=== PATIENT | male | born 1950 | race Two or more races ===

== ENCOUNTER 2020-04-09 10:19 | Outpatient (REF) | payer MEDICARE, MEDICAID, SELFPAY ==
[2020-04-09 10:54] LABS: MANUAL DIFF FLAG NO
[2020-04-09 10:56] LABS: Basophils Percent Auto 0.3 % (0-2); Eosinophils Absolute Auto 0.2 X10*3/uL (0.0-0.4); Eosinophils Percent Auto 2.5 % (0-4); Hematocrit 35.3 % (42-52); Hemoglobin 11.8 g/dl (14.0-18.0); Imm Gran Abs Auto 0.04 X10*3/uL (0.00-0.03); Imm Gran Pct Auto 0.5 % (0.0-0.4); Lymphocytes Absolute Auto 1.3 X10*3/uL (1.2-4.9); Lymphocytes Percent Auto 16.7 % (20-40); Mean Corpuscular HGB Conc 33.4 g/dl (31.0-36.0); Mean Corpuscular Volume 95.7 fL (80-98); Mean Platelet Volume 9.7 fL (9.4-12.4); Monocytes Absolute Auto 0.3 X10*3/uL (0.1-1.2); Monocytes Percent Auto 4.3 % (2-11); Neutrophils Absolute Auto 5.7 X10*3/uL (2.0-8.3); Neutrophils Percent Auto 75.7 % (45-73); Platelet Count 180 X10*3/uL (160-400); Red Blood Count 3.69 X10*6/uL (4.60-5.80); Red Cell Distribution Width 12.5 % (11.0-16.0); White Blood Count 7.5 X10*3/uL (4.8-10.8)
[2020-04-09 11:40] LABS: Glucose Urine UA NEG (NEG); Leukocyte Esterase Urine NEG (NEG); Nitrite Urine NEG (NEG); Urine Blood NEG (NEG); Urine Ketones NEG (NEG); Urine Protein NEG (NEG-TRACE)
[2020-04-09 11:55] LABS: Appearance Urine CLEAR; Color Urine YELLOW
[2020-04-09 12:05] LABS: Anion Gap 12 (12-20); Blood Urea Nitrogen 13 mg/dL (9-16); Calcium 8.7 mg/dL (8.4-10.2); Carbon Dioxide 24 mmol/L (22-29); Chloride 107 mmol/L (96-108); Estimated Glomerular Filt Rate 46; Phosphorus 3.1 mg/dL (2.7-4.5); Potassium 4.4 mmol/l (3.3-5.1); Sodium 139 mmol/L (135-145)
[2020-04-09 12:13] LABS: Vitamin D 25-OH Total 11.8 ng/mL (>30)
[2020-04-09 12:21] LABS: Total Protein Urine Random < 7 mg/dL (<12)
[2020-04-09 12:37] LABS: Creatinine Urine 129.91 mg/dL; Microalbumin Urine < 5.0 mg/L; Total Protein Urine Random < 7 mg/dL (<12)
[2020-04-09 13:12] LABS: Renal w Reflex Lab Use Only Order verified
[2020-04-10 15:52] LABS: Calcium (PTHI) 8.9 mg/dL (8.6-10.3); PTHI 45 pg/mL (14-64)
== END 2020-04-09 10:20 | disposition home or self-care (01) ==
LOC: HO.LAB 10:19
PROVIDERS: PCP Internal Medicine; Visit Provider Internal Medicine Nephrology
DX: I12.9 Hypertensive chronic kidney disease with stage 1 through stage 4 chronic kidney disease, or unspecified chronic kidney disease (principal); E11.22 Type 2 diabetes mellitus with diabetic chronic kidney disease; E11.51 Type 2 diabetes mellitus with diabetic peripheral angiopathy without gangrene; N18.30 Chronic kidney disease, stage 3 unspecified
CPT/HCPCS: 36415; 80051; 81003; 82040; 82043; 82306; 82310; 82565; 83735; 83970; 84100; 84156; 84520; 85025

== ENCOUNTER → 2020-06-04 10:41 | Outpatient (BNVA) | payer MEDICARE, MEDICAID, SELFPAY | PROVIDERS: PCP Internal Medicine; Visit Provider Internal Medicine Cardiovascular Disease | DX: I25.10 Atherosclerotic heart disease of native coronary artery without angina pectoris (principal); I10 Essential (primary) hypertension; Z79.899 Other long term (current) drug therapy | CPT/HCPCS: 93005; 99212 ==

== ENCOUNTER 2020-06-11 12:38 | Outpatient (REF) | payer MEDICARE, MEDICAID, SELFPAY ==
--- NOTE | ~2020-06-11 | US_ITS ---
EXAMINATION: NONINVASIVE ASSESSMENT OF THE ARTERIES OF BOTH LOWER EXTREMITIES WITH BILATERAL LOWER EXTREMITY DUPLEX CLINICAL INFORMATION: Peripheral vascular disease TECHNIQUE: Bilateral duplex Doppler techniques with wave form analysis and measurement of velocities in the common femoral, profunda femoral, superficial femoral, popliteal and tibial arteries. The study was performed only at rest. COMPARISON: None FINDINGS: a) AT REST: RIGHT LE. Right direct duplex Doppler findings: There is evidence of atherosclerotic disease with vessel wall calcification. * Common femoral artery: 175 cm/s, Diastolic flow reversal: Yes * Superficial femoral artery (proximal, mid, distal): 85, 169 and 48 cm/s, Diastolic flow reversal: No. Monophasic flow. * Popliteal artery: 41 cm/s, Diastolic flow reversal: Yes. Monophasic flow. * Posterior tibial artery: 38 cm/s, Diastolic flow reversal: No. Monophasic flow. LEFT LE. Left direct duplex Doppler findings: There is evidence of atherosclerotic disease with vessel wall calcification. * Common femoral artery: 150 cm/s, Diastolic flow reversal: No. Biphasic. * Superficial femoral artery (proximal, mid, distal): 96, 98 and 85 cm/s, Diastolic flow reversal: No. Biphasic. * Popliteal artery: 68 cm/s, Diastolic flow reversal: No. Biphasic. * Posterior tibial artery: 28 cm/s, Diastolic flow reversal: No. Monophasic. * US/US arterial duplex LE BI IMPRESSION: Right: Increased peak systolic velocity in the right common femoral and superficial femoral arteries and monophasic flow in the right superficial femoral, popliteal posterior tibial arteries suggestive of mild atherosclerotic disease. Left: Increased peak systolic velocity in the left common femoral artery and biphasic and monophasic flow throughout suggestive of mild atherosclerotic disease.
--- NOTE | ~2020-06-11 | US_ITS ---
EXAMINATION: US EXTRACRANIAL CAROTID DUPLEX, BILATERAL CLINICAL INFORMATION: Carotid stenosis. Post right endarterectomy. COMPARISON: Previous exam May 2019 and previous CTA of the neck September 2012 TECHNIQUE: Real-time ultrasound and Doppler techniques (integrating B-mode 2-D vascular images, Doppler spectral analysis and color-flow Doppler imaging) were utilized to interrogate the extracranial carotid arteries, the vertebral arteries and proximal subclavian arteries bilaterally. The degree of stenosis is determined by criteria similar to NASCET. FINDINGS: Right Side: 1. There is mild atherosclerotic plaque seen in the bifurcation/proximal ICA region. There are post endarterectomy changes. 2. The common carotid artery PSV proximally is 237 cm/s and distally 160 cm/s. 3. The proximal internal carotid artery velocities are 192 cm/s systolic and 47 cm/s diastolic. 4. The proximal external carotid artery PSV is 209 cm/s. 5. The vertebral artery shows bidirectional flow. This is similar to previous exam. 6. The subclavian artery waveforms are normal. Left Side: 1. There is significant atherosclerotic plaque seen in the bifurcation/proximal ICA region. 2. The common carotid artery PSV proximally is 91 cm/s and distally 90 cm/s. 3. The left internal carotid artery is occluded. This is unchanged. 4. The proximal external carotid artery PSV is 128 cm/s. 5. The vertebral artery shows antegrade flow. 6. There is increased peak systolic velocity in the left subclavian artery measuring 263 cm/s. US/US carotid duplex BI IMPRESSION: 1. RIGHT: Mild atherosclerotic plaque. Post endarterectomy changes. Mild 0-49% right ICA stenosis. Increased peak systolic velocity in the right ECA suggestive of mild right ECA stenosis. Bidirectional flow seen in the right vertebral artery. 2. LEFT: Significant calcified plaque. Chronic left ICA occlusion similar to previous exam. Increased peak systolic velocity in the left subclavian artery just above left subclavian stenosis. 3. There is no change in the category severity of disease when compared to the previous study dated May 2019.
== END 2020-06-11 12:39 | disposition home or self-care (01) ==
LOC: HO.US 12:38
PROVIDERS: Visit Provider Internal Medicine Cardiovascular Disease
DX: I65.23 Occlusion and stenosis of bilateral carotid arteries (principal); I73.9 Peripheral vascular disease, unspecified
CPT/HCPCS: 93880; 93925

== ENCOUNTER 2020-07-15 08:49 | Outpatient (REF) | payer MEDICARE, MEDICAID, SELFPAY ==
[2020-07-15 09:44] LABS: MANUAL DIFF FLAG NO
[2020-07-15 09:58] LABS: Basophils Percent Auto 0.3 % (0-2); Eosinophils Absolute Auto 0.3 X10*3/uL (0.0-0.4); Eosinophils Percent Auto 2.9 % (0-4); Hematocrit 38.1 % (42-52); Hemoglobin 12.7 g/dl (14.0-18.0); Imm Gran Abs Auto 0.04 X10*3/uL (0.00-0.03); Imm Gran Pct Auto 0.4 % (0.0-0.4); Lymphocytes Absolute Auto 1.7 X10*3/uL (1.2-4.9); Lymphocytes Percent Auto 18.4 % (20-40); Mean Corpuscular HGB Conc 33.3 g/dl (31.0-36.0); Mean Corpuscular Hemoglobin 32.1 pg (27.0-33.0); Mean Corpuscular Volume 96.2 fL (80-98); Mean Platelet Volume 9.6 fL (9.4-12.4); Monocytes Absolute Auto 0.6 X10*3/uL (0.1-1.2); Monocytes Percent Auto 6.4 % (2-11); Neutrophils Absolute Auto 6.6 X10*3/uL (2.0-8.3); Neutrophils Percent Auto 71.6 % (45-73); Platelet Count 217 X10*3/uL (160-400); Red Blood Count 3.96 X10*6/uL (4.60-5.80); Red Cell Distribution Width 12.9 % (11.0-16.0); White Blood Count 9.2 X10*3/uL (4.8-10.8)
[2020-07-15 10:15] LABS: Alanine Aminotransferase 40 U/L (0-40); Albumin Level 4.3 g/dL (3.5-5.0); Alkaline Phosphatase 84 U/L (39-117); Anion Gap 11 (12-20); Aspartate Amino Transferase 28 U/L (5-37); Bilirubin Total 0.4 mg/dL (0.0-1.0); Blood Urea Nitrogen 18 mg/dL (9-16); Carbon Dioxide 27 mmol/L (22-29); Chloride 104 mmol/L (96-108); Estimated Glomerular Filt Rate 41; Glucose Random 91 mg/dL (60-115); Potassium 4.9 mmol/L (3.3-5.1); Sodium 137 mmol/L (135-145); Total Protein 6.9 g/dL (6.5-8.0)
[2020-07-15 10:16] LABS: Cholesterol 115 mg/dL; HDL Cholesterol 38 mg/dL; LDL Cholesterol Calculated 44 mg/dl; Triglycerides 166 mg/dL
[2020-07-15 10:24] LABS: Prostate Specific Antigen 0.66 ng/mL (<0.05-4.0); Thyroid Stimulating Hormone 1.44 uIU/mL (0.32-4.0)
== END 2020-07-15 08:50 | disposition home or self-care (01) ==
LOC: HO.LAB 08:49
PROVIDERS: Internal Medicine Cardiovascular Disease; PCP Internal Medicine; Visit Provider Internal Medicine
DX: Z12.5 Encounter for screening for malignant neoplasm of prostate (principal); I12.9 Hypertensive chronic kidney disease with stage 1 through stage 4 chronic kidney disease, or unspecified chronic kidney disease; N18.30 Chronic kidney disease, stage 3 unspecified; E11.22 Type 2 diabetes mellitus with diabetic chronic kidney disease; E78.5 Hyperlipidemia, unspecified; F51.01 Primary insomnia; I25.10 Atherosclerotic heart disease of native coronary artery without angina pectoris; I65.21 Occlusion and stenosis of right carotid artery
CPT/HCPCS: 36415; 80053; 80061; 84153; 84443; 85025

== ENCOUNTER 2020-11-19 10:05 | Outpatient (REF) | payer MEDICARE, MEDICAID, SELFPAY ==
[2020-11-19 10:46] LABS: MANUAL DIFF FLAG NO
[2020-11-19 11:02] LABS: Basophils Percent Auto 0.4 % (0-2); Eosinophils Absolute Auto 0.2 X10*3/uL (0.0-0.4); Eosinophils Percent Auto 2.4 % (0-4); Hematocrit 36.4 % (42-52); Hemoglobin 12.2 g/dl (14.0-18.0); Imm Gran Abs Auto 0.06 X10*3/uL (0.00-0.03); Imm Gran Pct Auto 0.7 % (0.0-0.4); Lymphocytes Absolute Auto 1.7 X10*3/uL (1.2-4.9); Lymphocytes Percent Auto 20.7 % (20-40); Mean Corpuscular HGB Conc 33.5 g/dl (31.0-36.0); Mean Corpuscular Hemoglobin 31.8 pg (27.0-33.0); Mean Corpuscular Volume 94.8 fL (80-98); Mean Platelet Volume 9.5 fL (9.4-12.4); Monocytes Absolute Auto 0.6 X10*3/uL (0.1-1.2); Neutrophils Absolute Auto 5.6 X10*3/uL (2.0-8.3); Neutrophils Percent Auto 68.8 % (45-73); Platelet Count 225 X10*3/uL (160-400); Red Blood Count 3.84 X10*6/uL (4.60-5.80); Red Cell Distribution Width 12.8 % (11.0-16.0); White Blood Count 8.2 X10*3/uL (4.8-10.8)
[2020-11-19 11:24] LABS: Albumin Level 4.4 g/dL (3.5-5.0); Anion Gap 12 (12-20); Blood Urea Nitrogen 11 mg/dL (9-16); Calcium 9.3 mg/dL (8.4-10.2); Carbon Dioxide 24 mmol/L (22-29); Chloride 109 mmol/L (96-108); Estimated Glomerular Filt Rate 40; Magnesium 2.3 mg/dL (1.6-2.6); Phosphorus 3.1 mg/dL (2.7-4.5); Potassium 4.6 mmol/L (3.3-5.1); Sodium 140 mmol/L (135-145)
[2020-11-19 11:48] LABS: Vitamin D 25-OH Total 11.5 ng/mL (>30)
[2020-11-19 12:58] LABS: Appearance Urine CLEAR; Color Urine YELLOW; Glucose Urine UA NEG (NEG); Leukocyte Esterase Urine NEG (NEG); Nitrite Urine NEG (NEG); Specific Gravity - Urine 1.015 (1.005-1.025); Urine Blood NEG (NEG); Urine Ketones NEG (NEG); Urine Protein NEG (NEG-TRACE)
[2020-11-19 13:17] LABS: Creatinine Urine 122.28 mg/dL; Microalbumin Urine < 5.0 mg/L; Total Protein Urine Random < 7 mg/dL (<12)
[2020-11-19 13:18] LABS: Renal w Reflex Lab Use Only Order verified
[2020-11-24 06:31] LABS: Calcium (PTHI) 9.3 mg/dL (8.6-10.3); PTHI 58 pg/mL (14-64)
== END 2020-11-19 10:06 | disposition home or self-care (01) ==
LOC: HO.LAB 10:05
PROVIDERS: PCP Internal Medicine; Visit Provider Internal Medicine Nephrology
DX: I12.9 Hypertensive chronic kidney disease with stage 1 through stage 4 chronic kidney disease, or unspecified chronic kidney disease (principal); E11.22 Type 2 diabetes mellitus with diabetic chronic kidney disease; E11.29 Type 2 diabetes mellitus with other diabetic kidney complication; E11.51 Type 2 diabetes mellitus with diabetic peripheral angiopathy without gangrene; N18.30 Chronic kidney disease, stage 3 unspecified
CPT/HCPCS: 36415; 80051; 81003; 82040; 82043; 82306; 82310; 82565; 83735; 83970; 84100; 84155; 84156; 84520; 85025

== ENCOUNTER 2021-01-15 09:42 | Outpatient (REF) | payer MEDICARE, MEDICAID, SELFPAY ==
--- NOTE | ~2021-01-15 | US_ITS ---
EXAMINATION: US RETROPERITONEAL LIMITED (RENAL ONLY) CLINICAL INFORMATION: CKD. History of kidney stones. COMPARISON: Renal ultrasound 03/13/2019 and 07/05/2018. KUB 02/02/2018 and 01/19/2018. CT abdomen and pelvis 03/13/2016. TECHNIQUE: Real-time imaging of the kidneys. FINDINGS: RIGHT KIDNEY: 10.9 x 6.9 x 5.4 cm (SAG x AP x TRV). The kidney is normal in size, contour, and echogenicity. Renal cortical thickness is normal. No renal calculi or hydronephrosis. Simple cyst at the lateral upper pole measures up to 3.9 cm. Additional smaller simple cysts are present. No follow-up imaging recommended. LEFT KIDNEY: 9.9 x 4.4 x 4.1 cm (SAG x AP x TRV). The kidney is normal in size, contour, and echogenicity. Renal cortical thickness is normal. No focal parenchymal lesions or hydronephrosis. There is a midpole 0.3 cm calculus. There is a lower pole 0.3 cm calculus. US/US renal BI IMPRESSION: Nonobstructing left renal calculi. These are likely similar to prior.
== END 2021-01-15 09:43 | disposition home or self-care (01) ==
LOC: HO.US 09:42
PROVIDERS: PCP Internal Medicine; Visit Provider Internal Medicine Nephrology
DX: N18.32 Chronic kidney disease, stage 3b (principal)
CPT/HCPCS: 76775

== ENCOUNTER → 2021-06-02 08:32 | Outpatient (BNVA) | payer MEDICARE, MEDICAID, SELFPAY | PROVIDERS: PCP Internal Medicine; Referring Provider Internal Medicine; Visit Provider Internal Medicine Cardiovascular Disease | DX: I25.10 Atherosclerotic heart disease of native coronary artery without angina pectoris (principal); I73.9 Peripheral vascular disease, unspecified; I65.29 Occlusion and stenosis of unspecified carotid artery | CPT/HCPCS: 93005; 99212 ==

== ENCOUNTER 2021-06-03 09:17 | Outpatient (REF) | payer MEDICARE, MEDICAID, SELFPAY ==
[2021-06-03 09:55] LABS: MANUAL DIFF FLAG NO
[2021-06-03 10:41] LABS: Basophils Percent Auto 0.3 % (0-2); Eosinophils Absolute Auto 0.2 X10*3/uL (0.0-0.4); Eosinophils Percent Auto 2.2 % (0-4); Hematocrit 39.7 % (42.0-52.0); Hemoglobin 12.9 g/dl (14.0-18.0); Imm Gran Abs Auto 0.09 X10*3/uL (0.00-0.03); Imm Gran Pct Auto 0.9 % (0.0-0.4); Lymphocytes Absolute Auto 1.8 X10*3/uL (1.2-4.9); Lymphocytes Percent Auto 18.7 % (20-40); Mean Corpuscular HGB Conc 32.5 g/dl (31.0-36.0); Mean Corpuscular Hemoglobin 31.3 pg (27.0-33.0); Mean Corpuscular Volume 96.4 fL (80.0-98.0); Mean Platelet Volume 9.1 fL (9.4-12.4); Monocytes Absolute Auto 0.7 X10*3/uL (0.1-1.2); Monocytes Percent Auto 6.8 % (2-11); Neutrophils Absolute Auto 6.9 x10*3/uL (2.0-8.3); Neutrophils Percent Auto 71.1 % (45-73); Platelet Count 219 X10*3/uL (160-400); Red Blood Count 4.12 X10*6/uL (4.60-5.80); Red Cell Distribution Width 13.3 % (11.0-16.0); White Blood Count 9.7 X10*3/uL (4.8-10.8)
[2021-06-03 11:01] LABS: Appearance Urine CLEAR; Color Urine YELLOW; Glucose Urine UA NEG (NEG); Leukocyte Esterase Urine NEG (NEG); Nitrite Urine NEG (NEG); Specific Gravity - Urine 1.015 (1.005-1.025); Urine Blood NEG (NEG); Urine Ketones NEG (NEG); Urine Protein NEG (NEG-TRACE)
[2021-06-03 11:15] LABS: Albumin Level 4.2 g/dL (3.5-5.0); Anion Gap 13 (12-20); Blood Urea Nitrogen 9 mg/dL (9-16); Calcium 9.5 mg/dL (8.4-10.2); Carbon Dioxide 29 mmol/L (22-29); Chloride 104 mmol/L (96-108); Estimated Glomerular Filt Rate > 60; Magnesium 2.1 mg/dL (1.6-2.6); Phosphorus 3.3 mg/dL (2.7-4.5); Potassium 4.4 mmol/L (3.3-5.1); Sodium 142 mmol/L (135-145)
[2021-06-03 12:24] LABS: Creatinine Urine 75.72 mg/dL; Microalbum/Creatinine Ratio Ur 18.4 ug/mg cr; Total Protein Urine Random < 7 mg/dL (<12)
[2021-06-04 16:01] LABS: Calcium (PTHI) 9.4 mg/dL (8.6-10.3); PTHI 65 pg/mL (16-77)
== END 2021-06-03 09:18 | disposition home or self-care (01) ==
LOC: HO.LAB 09:17
PROVIDERS: PCP Internal Medicine; Visit Provider Internal Medicine Nephrology
DX: I12.9 Hypertensive chronic kidney disease with stage 1 through stage 4 chronic kidney disease, or unspecified chronic kidney disease (principal); N18.32 Chronic kidney disease, stage 3b; E11.22 Type 2 diabetes mellitus with diabetic chronic kidney disease; E11.21 Type 2 diabetes mellitus with diabetic nephropathy
CPT/HCPCS: 36415; 80051; 81003; 82040; 82043; 82306; 82310; 82565; 83735; 83970; 84100; 84156; 84520; 85025; 87086

== ENCOUNTER 2021-06-24 11:36 | Outpatient (REF) | payer MEDICARE, MEDICAID, SELFPAY ==
--- NOTE | ~2021-06-24 | US_ITS ---
EXAMINATION: US EXTRACRANIAL CAROTID DUPLEX, BILATERAL CLINICAL INFORMATION: Carotid artery stenosis. History of hyperlipidemia. History of prior right endarterectomy. COMPARISON: Carotid ultrasound on 06/08/2019 and 06/11/2020. TECHNIQUE: Real-time ultrasound and Doppler techniques (integrating B-mode 2-D vascular images, Doppler spectral analysis and color-flow Doppler imaging) were utilized to interrogate the extracranial carotid arteries, the vertebral arteries and proximal subclavian arteries bilaterally. The degree of stenosis is determined by criteria similar to NASCET. FINDINGS: Right Side: 1. There is moderate atherosclerotic plaque seen in the bifurcation/proximal ICA region. 2. The common carotid artery PSV proximally is 130 cm/s and distally 140 cm/s. 3. The proximal internal carotid artery velocities are 189 cm/s systolic and 31.4 cm/s diastolic. 4. The proximal external carotid artery PSV is 295 cm/s. 5. The vertebral artery shows bidirectional flow, similar to prior exams. 6. Flow is reversed within the proximal right subclavian artery. There is normal antegrade flow within the mid right subclavian artery with normal waveforms and velocities. Left Side: 1. There is heavy atherosclerotic plaque seen in the bifurcation/proximal ICA region. 2. The common carotid artery PSV proximally is 108 cm/s and distally 70.7 cm/s. 3. The proximal internal carotid artery is occluded, stable from prior exams. 4. The proximal external carotid artery PSV is 210 cm/s. 5. The vertebral artery shows antegrade flow. 6. The subclavian artery waveforms are normal. US/US carotid duplex BI IMPRESSION: 1. RIGHT: Moderate, hemodynamically significant stenosis of the proximal right internal carotid artery corresponding to a 50-79% stenosis by velocity criteria. The degree of ICA stenosis is stable from 06/11/2020. Flow within the right vertebral artery is bidirectional, similar to priors and there is reversed flow within the proximal right subclavian artery. Flow within the mid right subclavian artery is appropriately antegrade and waveforms and velocities are normal. 2. LEFT: There is chronic left ICA occlusion, similar to prior exams. Left subclavian artery velocity is decreased from the comparison examination. 3. Moderate bilateral external carotid artery stenosis.
--- NOTE | ~2021-06-24 | US_ITS ---
EXAMINATION: US LOWER EXTREMITY ARTERIAL DUPLEX, BILATERAL CLINICAL INFORMATION: Peripheral vascular disease. TECHNIQUE: Real-time ultrasound and Doppler techniques (integrating B-mode 2-D vascular images, Doppler spectral analysis and color-flow Doppler imaging) were utilized to interrogate the lower extremities. COMPARISON: Lower extremity arterial ultrasound on 04/05/2012. FINDINGS: RIGHT LEG: Common femoral artery: 134 cm/s, Triphasic Profunda femoris artery: 130 cm/s, Triphasic Superficial femoral artery (proximal): 70.3 cm/s, Monophasic Superficial femoral artery (mid): 79.2 cm/s, Monophasic Superficial femoral artery (distal): 39.8 cm/s, Monophasic Popliteal artery: 42.4 cm/s, Monophasic Posterior tibial artery: 38.9 cm/s, Monophasic Peroneal artery: 61.6 cm/s, Monophasic LEFT LEG: Common femoral artery: 130 cm/s, Triphasic Profunda femoris artery: 145 cm/s, Triphasic Superficial femoral artery (proximal): 134 cm/s, Biphasic Superficial femoral artery (mid): 125 cm/s, Biphasic Superficial femoral artery (distal): 97.4 cm/s, Triphasic Proximal popliteal artery: 82.1 cm/s, Triphasic Posterior tibial artery: No flow identified, likely occluded. Peroneal artery: No flow identified, likely occluded. ADDITIONAL: Note is made of a prominent left proximal thigh lymph node measuring up to 1.9 x 3.6 x 0.7 cm. US/US arterial duplex LE BI IMPRESSION: Right: Velocity is normal within the common femoral artery, and the common femoral artery waveform is multiphasic; however, waveforms from the proximal superficial femoral artery to the calf are monophasic suggesting a proximal stenosis. Flow is present within the posterior tibial and peroneal arteries. Left: There are normal velocities and multiphasic waveforms from the common femoral artery to the proximal popliteal artery. A monophasic waveform is present within the distal popliteal artery, and there is no flow identified within the posterior tibial or peroneal arteries.
== END 2021-06-24 11:37 | disposition home or self-care (01) ==
LOC: HO.US 11:36
PROVIDERS: Absent Provider Internal Medicine Cardiovascular Disease; PCP Internal Medicine; Visit Provider Surgery Vascular Surgery
DX: I65.23 Occlusion and stenosis of bilateral carotid arteries (principal); I73.9 Peripheral vascular disease, unspecified
CPT/HCPCS: 93880; 93925

== ENCOUNTER → 2021-07-01 08:29 | Outpatient (BNVA) | payer MEDICARE, MEDICAID, SELFPAY | PROVIDERS: PCP Internal Medicine; Visit Provider Surgery Vascular Surgery | DX: I73.9 Peripheral vascular disease, unspecified (principal); I77.9 Disorder of arteries and arterioles, unspecified | CPT/HCPCS: 99212 ==

== ENCOUNTER 2021-07-16 06:40 | Day surgery (SDC) | payer MEDICARE, MEDICAID, SELFPAY ==
[2021-07-16] VITALS (10 sets, daily range): BP systolic 98–130; BP diastolic 57–98; PULSE 58–86; RESP 16–18; TEMP 36.1–36.6; O2SAT 97–99; BMI 26.5
[2021-07-16 08:32] LABS: MANUAL DIFF FLAG NO
[2021-07-16 08:39] LABS: Basophils Percent Auto 0.3 % (0-2); Eosinophils Absolute Auto 0.3 X10*3/uL (0.0-0.4); Eosinophils Percent Auto 2.8 % (0-4); Hematocrit 37.5 % (42.0-52.0); Hemoglobin 12.5 g/dl (14.0-18.0); Imm Gran Abs Auto 0.05 X10*3/uL (0.00-0.03); Imm Gran Pct Auto 0.6 % (0.0-0.4); Lymphocytes Absolute Auto 1.6 X10*3/uL (1.2-4.9); Lymphocytes Percent Auto 17.5 % (20-40); Mean Corpuscular HGB Conc 33.3 g/dl (31.0-36.0); Mean Corpuscular Hemoglobin 31.9 pg (27.0-33.0); Mean Corpuscular Volume 95.7 fL (80.0-98.0); Mean Platelet Volume 9.4 fL (9.4-12.4); Monocytes Absolute Auto 0.6 X10*3/uL (0.1-1.2); Monocytes Percent Auto 6.2 % (2-11); Neutrophils Absolute Auto 6.5 x10*3/uL (2.0-8.3); Neutrophils Percent Auto 72.6 % (45-73); Platelet Count 175 X10*3/uL (160-400); Red Blood Count 3.92 X10*6/uL (4.60-5.80); Red Cell Distribution Width 13.1 % (11.0-16.0)
[2021-07-16] MEDS: 0.9 % Sodium Chloride 1,000 ML 100 ML IVCONT (08:45)
[2021-07-16 08:47] LABS: Blood Urea Nitrogen 12 mg/dL (9-16); Creatinine Clr Calc Pharmacy 48.1; Estimated Glomerular Filt Rate 49
[2021-07-16] MEDS: iohexoL 300 MG/ML 100 ML INFUS..BTL IV (11:10)
[2021-07-16] MEDS: iohexoL 300 MG/ML 50 ML INFUS..BTL IV (11:11)
--- NOTE | 2021-07-16 11:18 | W.PM.OPN ---
Operative Note Operative Note Date of Service: 07/16/21 Narrative: Angiogram report from [facility] Preoperative diagnosis: Atherosclerosis of left lower extremity with activity limiting claudication Postoperative diagnosis: Same Procedure: 1. Ultrasound-guided right common femoral access 2. Aortogram with bilateral lower extremity runoff Surgeon:Dom Cabello M.D., FACS, RPVI Holistic Specialist:None Anesthesia: Local with moderate conscious sedation. Total intraservice moderate sedation time was 63 minutes. I monitored the patient's level of consciousness and physiologic status continuously throughout the procedure. Specimens:none Drains:none Estimated blood loss: Less than 10 ml Implant: None Indications: 71-year-old gentleman with a history of diabetes and peripheral vascular disease presents for activity limiting claudication. He has undergone noninvasive testing. He now presents for endovascular intervention. The patient has signed the informed consent after reviewing risks, complications, benefits, and alternatives previously discussed with the patient. The patient was given the opportunity to ask any additional questions or voice any concerns. All questions were answered to the patient's satisfaction. Procedure in detail: Patient was brought to the angiography suite prior to which a time-out was called for patient identification and site verification. Bilateral groins were prepped and draped in the standard surgical fashion. Under ultrasound guidance rightcommon femoral was punctured with micro puncture needle and wire. Subsequently a precision 4 Belgian sheath was then placed. Bentson wire was advanced to the level of the aorta. 4 Belgian Flush catheter was brought up and parked at the level of the renal arteries. Aortogram was then undertaken. Catheter was brought down to the level of the iliac bifurcation. Iliacs were subsequently imaged. Catheter was then brought in up and over to the left side SFA. Due to the tortuosity we had to exchange to a Glidewire and subsequently glide catheter. This took multiple attempts to finally engaged the SFA but we were able to do so. Runoff study was then undertaken. No intervention was indicated. We removed catheter and wire. Through the 5 Belgian sheath right lower extremity runoff study was then undertaken. Once again no intervention was indicated. Sheath was removed. 10 minutes of direct pressure was held. Patient tolerated the procedure well. Returned to recovery with stable vitals. Interpretation of films: 1. Ultrasound demonstrates appropriate femoral puncture. Image of which was saved. 2. Aortogram demonstrates appropriate caliber aorta. Minimal disease. Appropriate take-off of the renals. 3. Iliac images demonstrate no significant disease. Left iliac had significant tortuosity near 90 degree turn of the common iliac. 4. Left Leg Common femoral artery: No significant disease Profundus Femoris: No significant disease Superficial femoral artery: Patent with prior stent which appears to be a 6 x 20 at [facility] canal which was patent Popliteal artery (p1,p2,p3): No significant disease Anterior tibial artery: Patent and dominant runoff. Goes all the way to the ankle and supplies multiple no named collaterals at the foot Peroneal artery: Occluded Posterior tibial artery: Occluded Dorsalis pedis/plantar arch: Incomplete 5. RightLeg Common femoral artery: No significant disease Profundus Femoris: No significant disease Superficial femoral artery: Multiple stenosis throughout the SFA in particular at Sami's canal high-grade stenosis Popliteal artery (p1,p2,p3): No significant disease Anterior tibial artery: Occluded Peroneal artery: Occluded Posterior tibial artery: Posterior tibial is dominant runoff although TP trunk had some mild stenosis Dorsalis pedis/plantar arch: Incomplete Conclusion: 1. Successful diagnostic angiogram. Patient will return for possible right lower extremity intervention. 2. Anticoagulation status: No change This note is constructed using voice recognition software. While every effort has been made to ensure accuracy, hi lift operator errors may have been included. Thank you for allowing me to participate in the care of your patient. Yours sincerely, Dom Cabello MD, FACS, R.P.V.I.
== END 2021-07-16 14:29 | disposition home or self-care (01) ==
PROVIDERS: PCP Internal Medicine; Visit Provider Surgery Vascular Surgery
DX: E11.51 Type 2 diabetes mellitus with diabetic peripheral angiopathy without gangrene (principal); I70.212 Atherosclerosis of native arteries of extremities with intermittent claudication, left leg; I25.10 Atherosclerotic heart disease of native coronary artery without angina pectoris; M79.605 Pain in left leg; Z98.61 Coronary angioplasty status; I10 Essential (primary) hypertension; I77.9 Disorder of arteries and arterioles, unspecified; Z79.899 Other long term (current) drug therapy; Z88.8 Allergy status to other drugs, medicaments and biological substances; Z98.890 Other specified postprocedural states
CPT/HCPCS: 36247; 36415; 75630; 76937; 82565; 84520; 85025; 99152; 99153; C1769; C1887; J2250; J3010; Q9967

== ENCOUNTER → 2021-08-04 08:34 | Outpatient (REF) | payer MEDICARE, MEDICAID, SELFPAY ==
--- NOTE | ~2021-08-04 | NM_ITS ---
Myocardial perfusion study Indication: Angina with prior coronary artery disease to evaluate for myocardial ischemia Technique: The patient was brought in for a Lexiscan perfusion study on 08/04/2021. Patient performed low-level exercise and was injected 0.4 mg of Lexiscan intravenously. Within a minute of injection, 30 mCi of sestamibi was given intravenously. Images were obtained using the SPECT gamma camera interlaced with the gating device. Images were obtained in supine position. Resting perfusion study was performed on 08/05/2021. Patient was administered 30 mCi of sestamibi intravenously at rest. Images were then obtained in supine position. Images obtained with and without CT attenuation. Total DLP 84 mGy-cm. Images were processed with the software and compared side to side in short axis, horizontal long axis and vertical long axis views. Findings: The stress perfusion study showed non attenuated images show moderately large area all severely reduced uptake mostly in the basal inferior, mid inferior as well as apical inferolateral and moderately reduced and basal inferolateral as well as inferoapical wall of the LV myocardium. Attenuation corrected images show moderately reduced uptake in the inferolateral as well as mildly to moderately reduced uptake in the inferior wall of the LV myocardium. Remainder of the LV myocardium is normally perfused.. The gated study shows normal LV systolic function with calculated LVEF of 67%. LV cavity is normal in size. The gated study shows normal systolic wall thickening and contraction of segments. Resting study shows non attenuated images show no change in perfusion pattern. Attenuation corrected images show improved uptake in the inferior and inferolateral wall.. Gating at rest reveals normal systolic wall motion with ejection fraction at 66%. The findings are consistent with attenuated corrected suggestive wall reversible defect of the inferior and inferolateral wall of moderate intensity suggestive of ischemia.. NM/NM cardiolite stress test Impression: 1. Myocardial perfusion imaging study shows moderate intensity inferior and inferolateral ischemia in RCA/circumflex territory 2. Gated LVEF is 67% 3. Transient ischemic dilatation not present EKG is nondiagnostic for ischemia
--- NOTE | 2021-08-04 08:40 | CA_ITS ---
Acquisition Time: 2021-08-04 09:35:25 Total Exercise Time: 00:02:00 Test Indications: ANGINA Medications: SEE CHART Protocol: LEXISCAN Max HR: 110 BPM 74% of Pred: 147 BPM Max BP: 110/060 mmHG Max Work Load: 1.0 METS Pharmacological stress test with Lexiscan injection, while sitting and moving his legs and right arm, without anginal symptoms, with isolated PVC, with normotensive response to injection, with nondiagnostic EKG for ischemia. In recovery he was treated with Aminophylline 75mg IVP to reverse Lexiscan. Nuclear images pending. Test reviewed with Dr Nur. Referred By: Robby Weber Overread By: GEOFF REYES
== END ==
LOC: HO.CARD 08:34
PROVIDERS: Visit Provider Internal Medicine Cardiovascular Disease
DX: I25.119 Atherosclerotic heart disease of native coronary artery with unspecified angina pectoris (principal)
CPT/HCPCS: 78452; 93017; A9500; J0280; J2785

== ENCOUNTER → 2021-08-07 09:28 | Outpatient (BNVA) | payer MEDICARE, MEDICAID, SELFPAY | PROVIDERS: PCP Internal Medicine; Visit Provider Surgery Vascular Surgery | DX: I73.9 Peripheral vascular disease, unspecified (principal); I77.9 Disorder of arteries and arterioles, unspecified | CPT/HCPCS: 99212 ==

== ENCOUNTER 2021-09-02 10:19 | Outpatient (REF) | payer MEDICARE, MEDICAID, SELFPAY ==
--- NOTE | ~2021-09-02 | XR_ITS ---
EXAMINATION: XR CERVICAL SPINE CLINICAL INFORMATION: Cervicalgia COMPARISON: Carotid ultrasound 06/11/2020. TECHNIQUE: The cervical spine is imaged in 9 views. FINDINGS: There is mild rightward tilting cervical spine and mild straightening of the cervical lordosis. Bony mineralization appears normal. There is no cervical vertebral compression, spondylolisthesis, destructive process, or prevertebral soft tissue swelling. The odontoid appears intact. There are multilevel degenerative disc changes with disc narrowing and vertebral spurring from C3-C4 through C6-C7. There is mild facet degeneration. The oblique views show mild bilateral foraminal spurring C4, C5, and C6. XR/XR cervical spine min 6V IMPRESSION: -Mild rightward tilting cervical spine with mild straightening lordosis. -No cervical vertebral compression or subluxation. -Degenerative disc changes C3-C4, C4-C5, C5-C6, and C6-C7. -Mild bilateral foraminal spurring C4-C5, C5-C6, C6-C7.
== END 2021-09-02 10:20 | disposition home or self-care (01) ==
LOC: HO.XRAY 10:19
PROVIDERS: PCP Internal Medicine; Visit Provider Internal Medicine
DX: M54.2 Cervicalgia (principal)
CPT/HCPCS: 72052

== ENCOUNTER → 2021-12-08 09:46 | Outpatient (BNVA) | payer MEDICARE, MEDICAID, SELFPAY | PROVIDERS: PCP Internal Medicine; Referring Provider Internal Medicine; Visit Provider Internal Medicine Cardiovascular Disease | DX: I25.10 Atherosclerotic heart disease of native coronary artery without angina pectoris (principal); I10 Essential (primary) hypertension | CPT/HCPCS: 99212 ==

== ENCOUNTER → 2022-02-02 10:44 | Outpatient (REF) | payer MEDICARE, MEDICAID, SELFPAY | LOC: HO.SL 10:44 | PROVIDERS: PCP Internal Medicine; Visit Provider Internal Medicine | DX: G47.33 Obstructive sleep apnea (adult) (pediatric) (principal); F51.01 Primary insomnia | CPT/HCPCS: 95806 ==

== ENCOUNTER 2022-04-07 08:28 | Outpatient (REF) | payer MEDICARE, MEDICAID, SELFPAY ==
[2022-04-07 08:47] LABS: MANUAL DIFF FLAG NO
[2022-04-07 09:22] LABS: Basophils Percent Auto 0.3 % (0-2); Eosinophils Absolute Auto 0.2 X10*3/uL (0.0-0.4); Eosinophils Percent Auto 1.9 % (0-4); Hematocrit 36.7 % (42.0-52.0); Hemoglobin 12.3 g/dl (14.0-18.0); Imm Gran Abs Auto 0.05 X10*3/uL (0.00-0.03); Imm Gran Pct Auto 0.6 % (0.0-0.4); Lymphocytes Absolute Auto 1.6 X10*3/uL (1.2-4.9); Lymphocytes Percent Auto 17.4 % (20-40); Mean Corpuscular HGB Conc 33.5 g/dl (31.0-36.0); Mean Corpuscular Hemoglobin 31.1 pg (27.0-33.0); Mean Corpuscular Volume 92.9 fL (80.0-98.0); Mean Platelet Volume 9.8 fL (9.4-12.4); Monocytes Absolute Auto 0.5 X10*3/uL (0.1-1.2); Monocytes Percent Auto 5.5 % (2-11); Neutrophils Absolute Auto 6.7 x10*3/uL (2.0-8.3); Neutrophils Percent Auto 74.3 % (45-73); Platelet Count 202 X10*3/uL (160-400); Red Blood Count 3.95 X10*6/uL (4.60-5.80); Red Cell Distribution Width 12.8 % (11.0-16.0)
[2022-04-07 09:36] LABS: Appearance Urine Clear; Color Urine Yellow; Glucose Urine UA Negative (Negative); Leukocyte Esterase Urine Negative (Negative); Nitrite Urine Negative (Negative); PH 5.5 (5.0-9.0); Urine Blood Negative (Negative); Urine Ketones Negative (Negative); Urine Protein Negative (Neg-Trace)
[2022-04-07 09:41] LABS: Bacteria Urine None Seen (None Seen); RBC Urine 0-2 /HPF (0-2); Squamous Epithelial Cell Urine 0-2 /HPF (0-2); WBC Urine 0-5 /HPF (0-5)
[2022-04-07 10:09] LABS: Creatinine Urine 157.49 mg/dL; Microalbum/Creatinine Ratio Ur 15.2 ug/mg cr; Protein/Creatinine Ratio, Ur 0.06 (<0.2); Total Protein Urine Random 9 mg/dL (<12)
[2022-04-07 10:16] LABS: Albumin Level 4.2 g/dL (3.5-5.0); Anion Gap 12 (12-20); Blood Urea Nitrogen 12 mg/dL (9-16); Calcium 9.3 mg/dL (8.4-10.2); Carbon Dioxide 25 mmol/L (22-29); Chloride 107 mmol/L (96-108); Estimated Glomerular Filt Rate 39; Magnesium 1.9 mg/dL (1.6-2.6); Phosphorus 3.8 mg/dL (2.7-4.5); Potassium 4.5 mmol/L (3.3-5.1); Sodium 139 mmol/L (135-145)
[2022-04-08 11:37] LABS: Calcium (PTHI) 9.1 mg/dL (8.6-10.3); PTHI 69 pg/mL (16-77)
== END 2022-04-07 08:29 | disposition home or self-care (01) ==
LOC: HO.LAB 08:28
PROVIDERS: PCP Internal Medicine; Visit Provider Internal Medicine Nephrology
DX: I12.9 Hypertensive chronic kidney disease with stage 1 through stage 4 chronic kidney disease, or unspecified chronic kidney disease (principal); E11.22 Type 2 diabetes mellitus with diabetic chronic kidney disease; N18.31 Chronic kidney disease, stage 3a
CPT/HCPCS: 36415; 80051; 81001; 82040; 82043; 82310; 82565; 83735; 83970; 84100; 84156; 84520; 85025; 87086

== ENCOUNTER → 2022-06-08 10:04 | Outpatient (BNVA) | payer MEDICARE, MEDICAID, SELFPAY | PROVIDERS: PCP Internal Medicine; Referring Provider Internal Medicine; Visit Provider Internal Medicine Cardiovascular Disease | DX: I25.10 Atherosclerotic heart disease of native coronary artery without angina pectoris (principal) | CPT/HCPCS: 93005; 99212 ==

== ENCOUNTER 2022-06-16 06:59 | Outpatient (REF) | payer MEDICARE, MEDICAID, SELFPAY ==
[2022-06-16 08:10] LABS: Cholesterol 130 mg/dL; HDL Cholesterol 51 mg/dL; LDL Cholesterol Calculated 61 mg/dl; Triglycerides 94 mg/dL
== END 2022-06-16 07:00 | disposition home or self-care (01) ==
LOC: HO.LAB 06:59
PROVIDERS: PCP Internal Medicine; Visit Provider Internal Medicine Cardiovascular Disease
DX: I25.10 Atherosclerotic heart disease of native coronary artery without angina pectoris (principal)
CPT/HCPCS: 36415; 80061

== ENCOUNTER 2022-10-02 09:43 | Outpatient (REF) | payer MEDICARE, MEDICAID, SELFPAY ==
[2022-10-02 11:08] LABS: Anion Gap 12 (12-20); Blood Urea Nitrogen 12 mg/dL (9-16); Calcium 9.4 mg/dL (8.4-10.2); Carbon Dioxide 27 mmol/L (22-29); Chloride 106 mmol/L (96-108); Estimated Glomerular Filt Rate 41; Glucose Random 131 mg/dL (60-115); Potassium 3.9 mmol/L (3.3-5.1); Sodium 141 mmol/L (135-145)
[2022-10-08 15:13] LABS: Testosterone, Free 63.6 pg/mL (30.0-135.0); Testosterone, Total 544 ng/dL (250-1100)
== END 2022-10-02 09:44 | disposition home or self-care (01) ==
LOC: HO.LAB 09:43
PROVIDERS: PCP Internal Medicine; Visit Provider Internal Medicine
DX: N52.9 Male erectile dysfunction, unspecified (principal); I10 Essential (primary) hypertension
CPT/HCPCS: 36415; 80048; 84402; 84403

== ENCOUNTER 2022-11-19 08:56 | Outpatient (REF) | payer MEDICARE, MEDICAID, SELFPAY ==
[2022-11-19 09:15] LABS: MANUAL DIFF FLAG NO
[2022-11-19 09:49] LABS: Basophils Percent Auto 0.3 % (0-2); Eosinophils Absolute Auto 0.2 X10*3/uL (0.0-0.4); Eosinophils Percent Auto 2.4 % (0-4); Hematocrit 36.7 % (42.0-52.0); Hemoglobin 12.2 g/dl (14.0-18.0); Imm Gran Abs Auto 0.04 X10*3/uL (0.00-0.03); Imm Gran Pct Auto 0.6 % (0.0-0.4); Lymphocytes Absolute Auto 1.3 X10*3/uL (1.2-4.9); Lymphocytes Percent Auto 18.5 % (20-40); Mean Corpuscular HGB Conc 33.2 g/dl (31.0-36.0); Mean Corpuscular Hemoglobin 30.9 pg (27.0-33.0); Mean Corpuscular Volume 92.9 fL (80.0-98.0); Mean Platelet Volume 9.8 fL (9.4-12.4); Monocytes Absolute Auto 0.4 X10*3/uL (0.1-1.2); Monocytes Percent Auto 5.8 % (2-11); Neutrophils Absolute Auto 5.2 x10*3/uL (2.0-8.3); Neutrophils Percent Auto 72.4 % (45-73); Platelet Count 209 X10*3/uL (160-400); Red Blood Count 3.95 X10*6/uL (4.60-5.80); Red Cell Distribution Width 13.5 % (11.0-16.0); White Blood Count 7.1 X10*3/uL (4.8-10.8)
[2022-11-19 10:42] LABS: Albumin Level 4.1 g/dL (3.5-5.0); Anion Gap 13 (12-20); Blood Urea Nitrogen 9 mg/dL (9-16); Calcium 9.4 mg/dL (8.4-10.2); Carbon Dioxide 25 mmol/L (22-29); Chloride 108 mmol/L (96-108); Estimated Glomerular Filt Rate 50; Phosphorus 3.5 mg/dL (2.7-4.5); Sodium 142 mmol/L (135-145)
[2022-11-19 10:57] LABS: Vitamin D 25-OH Total 15.3 ng/mL (>30)
[2022-11-19 11:19] LABS: Appearance Urine Clear; Color Urine Yellow; Glucose Urine UA Negative (Negative); Leukocyte Esterase Urine Negative (Negative); Nitrite Urine Negative (Negative); PH 5.5 (5.0-9.0); Specific Gravity - Urine 1.015 (1.005-1.025); Urine Blood Negative (Negative); Urine Ketones Negative (Negative); Urine Protein Negative (Neg-Trace)
[2022-11-19 12:14] LABS: Creatinine Urine 166.23 mg/dL; Microalbum/Creatinine Ratio Ur 4.8 ug/mg cr (<30); Protein/Creatinine Ratio, Ur 0.05 (<0.2); Total Protein Urine Random 9 mg/dL (<12)
[2022-11-20 15:54] LABS: Calcium (PTHI) 8.9 mg/dL (8.6-10.3); PTHI 50 pg/mL (16-77)
== END 2022-11-19 08:57 | disposition home or self-care (01) ==
LOC: HO.LAB 08:56
PROVIDERS: PCP Internal Medicine; Visit Provider Internal Medicine Nephrology
DX: E11.22 Type 2 diabetes mellitus with diabetic chronic kidney disease (principal); N18.32 Chronic kidney disease, stage 3b; E11.21 Type 2 diabetes mellitus with diabetic nephropathy
CPT/HCPCS: 36415; 80051; 81003; 82040; 82043; 82306; 82310; 82565; 82570; 83735; 83970; 84100; 84156; 84520; 85025

== ENCOUNTER 2023-01-19 08:05 | Outpatient (REF) | payer MEDICARE, MEDICAID, SELFPAY ==
[2023-01-19 09:33] LABS: Alanine Aminotransferase 16 U/L (0-40); Albumin Level 3.9 g/dL (3.5-5.0); Alkaline Phosphatase 78 U/L (39-117); Aspartate Amino Transferase 17 U/L (5-37); Bilirubin Direct 0.2 mg/dL (0.0-0.5); Bilirubin Total 0.4 mg/dL (0.0-1.0); Total Protein 6.8 g/dL (6.5-8.0)
[2023-01-19 09:35] LABS: Prothrombin Time 11.7 SEC (11.1-13.3)
== END 2023-01-19 08:06 | disposition home or self-care (01) ==
LOC: HO.LAB 08:05
PROVIDERS: PCP Internal Medicine; Visit Provider Internal Medicine
DX: I12.9 Hypertensive chronic kidney disease with stage 1 through stage 4 chronic kidney disease, or unspecified chronic kidney disease (principal); E11.22 Type 2 diabetes mellitus with diabetic chronic kidney disease; N18.31 Chronic kidney disease, stage 3a; N52.9 Male erectile dysfunction, unspecified; I73.9 Peripheral vascular disease, unspecified; Z79.4 Long term (current) use of insulin
CPT/HCPCS: 36415; 80076; 85610

== ENCOUNTER → 2023-02-10 08:38 | Outpatient (REF) | payer MEDICARE, MEDICAID, SELFPAY ==
--- NOTE | 2023-02-10 08:41 | CA_ITS ---
Transthoracic Echocardiogram Patient (Last, First, Middle): Leroy Contreras, Gender: Male Date of : 1950 Age: 72 Procedure Date: 02/10/2023 Procedure Type: Transthoracic Echocardiogram Location: OP Height: 175.26 cm Weight: 92.08 kg BSA: 2.08 m2 Heart Rate: bpm BP: 140 / 62 mmHg Harpoon Engagement Planning Operator: TO Referring MD: Nikunj Ferris MD Petroleum Sampler: Robby Weber MD Symptoms: ASCD W/O ANGINA I25.10 HTN I10 Study Quality: Adequate ECG Rhythm: Sinus Conclusions: - 1. Normal LV systolic function with LVEF of 60 65% with sudden normal filling pattern 2. Mildly dilated left atrium 3. Normal cardiac valvular Dopplers 4. Mildly dilated ascending aorta 3.9 cm 5. No gross pericardial effusion Findings Left Ventricle Normal left ventricular size, thickness, and systolic function. The visually estimated ejection fraction is between 60-65%. Spectral Doppler is indicative of a pseudonormal filling pattern. E/E prime ratio is between 8 and 15 consistent with indeterminate filling pressures. Peak GLS is -17.#%, borderline low. Right Ventricle Normal right ventricular cavity size and systolic function. Atria The left atrium is mildly dilated. Interatrial shunt cannot be excluded. The right atrium is normal in size. Aortic Valve There is mild calcification of the aortic valve. There is no aortic valve stenosis. There is no aortic valve regurgitation. Mitral Valve There is mild anterior and posterior mitral leaflet thickening. There is trace mitral valve regurgitation. There is no mitral valve stenosis. Pulmonic Valve The pulmonic valve was not well visualized. Tricuspid Valve Likely normal tricuspid valve structure and function. Normal right atrial pressure. Great Vessels The pulmonary artery was not well visualized. There is mild dilatation of the ascending aorta measuring 3.90 cm. Venous The inferior vena cava is normal in size and collapses greater than 50% with inspiration. Pericardium/Pleural There is no evidence of pericardial effusion. Measurements 2D Linear Measurements IVSd: 1.24 0.6-0.9/0.6-1.0 cm LVIDd: 5.23 3.9-5.3/4.2-5.9 cm LVIDd Index: 2.51 2.4-3.2/2.2-3.1 cm/m2 LVIDs: 3.15 2.0-3.6 cm LVPWd: 1.03 0.7-1.1 cm LA Diam: 4.10 2.7-3.8/3.0-4.0 cm LAIDs Index: 1.97 1.5-2.3 cm/m2 LV Mass: 289.97 67-162/88-224 g LV Mass Index: 139.41 43-95/49-115 g/m2 LVOT Diam: 2.20 3.0+(-)1.3 cm 2D Systolic Function EF 4C: 60.60 >55% EF 2C: 62.80 >55% EF BiP: 62.00 >55% Mitral Valve MV VTI: 0.41 MV Pk Raul: 1.18 MV Mn Raul: 0.66 MV Pk Grad: 6.00 MV Mn Grad: 2.00 MV Pk E: 1.11 MV PK A: 0.94 MV Decel Time: 215.00 E/A: 1.20 E'Lateral: 7.29 E'Medial: 5.44 E/E' Med: 20.40 E/E' Lat: 15.20 PHT: 63.00 MVA PHT: 3.49 MVA Continuity: 2.47 Decel Fisher: 5.19 Aortic Valve AoV Pk Raul: 1.62 AoV Mn Raul: 1.21 AoV VTI: 0.45 AoV Pk Grad: 10.00 Aov Mn Grad: 6.00 MARIYA Cont.VTI: 2.24 LVOT LVOT Pk Raul: 0.95 LVOT Mn Raul: 0.71 LVOT VTI: 0.27 LVOT Pk Grad: 4.00 LVOT Mn Grad: 2.00 LVOT Diam: 2.20 LVOT Area: 3.80 Diastolic Function MV Pk E: 1.11 MV Pk A: 0.94 E/A: 1.20 E'Medial: 5.44 E/E' Med: 20.40 E' Laterial: 7.29 E/E' Lat: 15.20 Right Ventricle TAPSE (mm): 29.50 TVS' Raul: 15.40 Tricuspid Valve RA Press: 3.00 Great Vessels Aorta Sinus of Valsalva: 3.80 2.0-3.5 cm Ao Asc: 3.90 2.1-3.4 cm Updated in Other Vendor System with Status of Final Robby Weber MD electronically signed on 02/10/2023 5:08:38 PM with status of Final
== END ==
LOC: HO.CARD 08:38
PROVIDERS: PCP Internal Medicine; Visit Provider Internal Medicine
DX: I25.10 Atherosclerotic heart disease of native coronary artery without angina pectoris (principal); I10 Essential (primary) hypertension
CPT/HCPCS: 93306; 93356

== ENCOUNTER → 2023-02-10 08:41 | Outpatient (BNV) | payer MEDICARE, MEDICAID, SELFPAY | PROVIDERS: PCP Internal Medicine; Visit Provider Internal Medicine Cardiovascular Disease | DX: I35.8 Other nonrheumatic aortic valve disorders (principal); I34.89 Other nonrheumatic mitral valve disorders | CPT/HCPCS: 93306 ==

== ENCOUNTER 2023-02-16 08:47 | Outpatient (REF) | payer MEDICARE, MEDICAID, SELFPAY ==
--- NOTE | ~2023-02-16 | US_ITS ---
EXAMINATION: US NONINVASIVE ASSESSMENT OF THE ARTERIES OF BOTH LOWER EXTREMITIES INCLUDING PVR EXAM AND BILATERAL LOWER EXTREMITY DUPLEX. CLINICAL INFORMATION: Claudication COMPARISON: None TECHNIQUE: Ankle pulse volume recordings, ankle pressure measurements and ankle brachial indices were obtained of the lower extremity arterial system bilaterally in addition to duplex Doppler techniques with wave form analysis and measurement of velocities in the common femoral, profunda femoral, superficial femoral, popliteal, tibial and peroneal arteries. The study was performed only at rest. FINDINGS: RIGHT LE. THE RIGHT ANKLE-BRACHIAL INDEX IS: 0.7 >0.97-1.25 = normal - no significant arterial disease 0.75-0.96 = mild peripheral arterial disease 0.5-0.74 = moderate peripheral arterial disease <0.50 = severe peripheral arterial disease <0.30 = critical arterial disease 2. SEGMENTAL PRESSURES (mmHg): Ankle: PT 101, DP 86 3. PVR WAVEFORMS: Ankle: Dampened compared to the contralateral side 4. DIRECT DUPLEX: Common femoral artery: 129 cm/s, Multiphasic Profunda femoris artery: 161 cm/s, monophasic Superficial femoral artery (proximal): 62 cm/s, monophasic Superficial femoral artery (mid): Occluded Superficial femoral artery (distal): 170 cm/s, monophasic Proximal Popliteal artery: 19 cm/s, monophasic Mid posterior tibial artery: 40 cm/s, monophasic Peroneal artery: 42 cm/s, monophasic LEFT LE. THE LEFT ANKLE-BRACHIAL INDEX IS: 0.76 >0.97-1.25 = normal - no significant arterial disease 0.75-0.96 = mild peripheral arterial disease 0.5-0.74 = moderate peripheral arterial disease <0.50 = severe peripheral arterial disease <0.30 = critical arterial disease 2. SEGMENTAL PRESSURES: Ankle: PT 103, DP 109 3. PVR WAVEFORMS: Ankle: Normal 4. DIRECT DUPLEX: Common femoral artery: 48 cm/s, Multiphasic Profunda femoris artery: 114 cm/s, biphasic Superficial femoral artery (proximal): 83 cm/s, Multiphasic Superficial femoral artery (mid): 1:15 cm/s, Multiphasic Superficial femoral artery (distal): 64 cm/s, Multiphasic Proximal Popliteal artery: 46 cm/s, Multiphasic Mid posterior tibial artery: 21 cm/s, monophasic Peroneal artery: Occluded. US/US arterial duplex LE BI IMPRESSION: Right lower extremity: 1. Moderate resting peripheral vascular disease. 2. Long segment occlusion of the SFA with distal reconstitution from intramuscular collateral. 3. Occlusion of anterior tibial artery at the mid segment and posterior tibial artery proximally. Left lower extremity: 1. Moderate resting peripheral vascular disease. 2. Distal SFA stent patent. 3. Occluded posterior tibial and peroneal arteries. 4. Anterior tibial and dorsalis pedis patent.
== END 2023-02-16 08:48 | disposition home or self-care (01) ==
LOC: HO.US 08:47
PROVIDERS: PCP Internal Medicine; Visit Provider Surgery Vascular Surgery
DX: I70.213 Atherosclerosis of native arteries of extremities with intermittent claudication, bilateral legs (principal)
CPT/HCPCS: 93923; 93925

== ENCOUNTER 2023-03-25 12:49 | Outpatient (AMB) | payer MEDICARE, MEDICAID, SELFPAY ==
--- NOTE | 2023-03-25 13:13 | A.OFFVIS_ITS ---
Intake Vital Signs 03/25/23 13:14 03/25/23 13:26 Height 5 ft 10 in 5 ft 10 in Weight 205 lb 185 lb BMI 29.4 26.5 Intake Visit Reasons: arterial duplex fu Intake Note: 6 mo art follow up overdue s/p art US 02/16/23. Pt states that LE are painful with ambulation and sleeping, can walk about 5 mins before starts getting pain and cramping, more so when he is laying down. Left LE is worse than Right LE. Hx of Left Angio in July 2021, pt states it didnt help Stripper Apprentice Required: Yes Stripper Apprentice Language: Editorial Director Name: berta [email or web address] Information Interpreted: clinical only Accompanied by: Spouse Allergies lisinopril [LISINOPRIL] Allergy (Severe, Verified 03/25/23 13:32) ANGIOEDEMA, tongue swelling adhesive Allergy (Intermediate, Verified 03/25/23 13:32) EKG LEADS BLISTER HPI arterial duplex fu HPI Details Very pleasant 72-year-old gentleman presents for routine surveillance follow-up regarding peripheral vascular disease. Continues to be able to ambulate about a block. He reports that he can go about 5 minutes without any significant difficulty. He now presents for routine surveillance follow-up. [facility] Medical History Hyperlipidemia HTN (hypertension) Peripheral vascular disease Carotid artery disease CAD (coronary artery disease) Surgical History Stented coronary artery Hx of endoscopy Hx of colonoscopy Hx of cardiac cath Family History Father CVD (cardiovascular disease) Mother CVD (cardiovascular disease) Review of Systems Const All systems reviewed & are unremarkable except as noted in HPI and below Reports no additional complaints ENT Reports Normal hearing present Card Denies chest pain, Denies chest pain at rest, Denies chest pain with activity and Denies pedal edema Resp Denies cough GI Denies abdominal pain Musc Denies abnormal gait, Denies muscle cramps and Denies radiating pain into limb Skin/Breast Denies skin ulcer and Denies wounds Neuro Reports Normal hearing present and Denies abnormal gait Psych Reports no additional complaints Physical Exam Vital Signs: BMI result Body Mass Index 26.5 Const General: cooperative, healthy appearing and comfortable Orientation/consciousness: oriented to person, oriented to place and oriented to time HEENT Head: Yes normal to inspection Neck Neck: Yes normal visual inspection Carotids: no bruits Chest Chest palpation & inspection: normal inspection of the chest Resp Effort & Inspection: normal respiratory effort and able to speak in complete sentences Auscultation: clear to auscultation bilaterally, no crackles, no rales, no rhonchi and no wheezes Cardio Rate: regular rate Rhythm: regular rhythm Heart sounds: S1 normal heart sound present and S2 normal heart sound present Bruits: no carotid bruits Peripheral pulses: Peripheral pulses 2+ throughout GI Inspection: Yes normal to inspection Skin Wounds: no wounds Hair: normal Neuro General: oriented to person, oriented to place and oriented to time Cranial nerves: Yes CN's II-XII intact bilaterally and Yes Normal hearing present Cognition (Neuro): normal cognition Motor exam (neuro): 5/5 motor strength present throughout Extrem Other: venous exam: No significant superficial varicosities or spider telangiectasias, minimal edema General: No clubbing, No cyanosis and No edema Psych Appearance: grossly normal Mental Status: mental status grossly normal Speech and movement: Normal speech and movement present Results Reviewed Results Reviewed: Noninvasive arterial testing dated 02/16/2023 demonstrates ROSIE on the right of 0.7 and on the left of 0.76. Written report and images were reviewed. Assessment & Plan Assessment & Plan (1) Peripheral vascular disease: Code(s): I73.9 - Peripheral vascular disease, unspecified Plan: In short patient has stable claudication. I did review the pathophysiology of peripheral vascular disease with the patient. In addition we did discuss routine conservative measures including a healthy diet and the importance of exercise and ambulation. We did discuss risk factor modification. The patient will continue to to follow-up with surveillance follow-up in approximately 6 months. Thank you for allowing us to participate in this patient's care. If there are any questions or concerns please do not hesitate to contact us. (2) Bilateral carotid artery disease: Code(s): I77.9 - Disorder of arteries and arterioles, unspecified Qualifiers: Carotid artery disease type: stenosis Qualified Code(s): I65.23 - Occlusion and stenosis of bilateral carotid arteries Plan: He has a known prior occlusion of his carotids. He has not had a surveillance follow-up regarding this. Will plan for surveillance follow-up in approximately 6 months time Orders: Orders US carotid duplex BI 6 Months I65.23 - Occlusion and stenosis of bilateral carotid arteries US arterial duplex BI w/ ROSIE 6 Months I73.9 - Peripheral vascular disease, unspecified Coding Level of Care Code Est Pt Level 4 (86373) Diagnoses Peripheral vascular disease I73.9 Bilateral carotid artery stenosis I65.23 Carotid artery disease type: stenosis
[2023-03-25 13:14] VITALS: BMI 29.4
[2023-03-25 13:26] VITALS: BMI 26.5
== END 2023-03-25 13:55 | disposition home or self-care (01) ==
PROVIDERS: PCP Internal Medicine; Visit Provider Surgery Vascular Surgery
DX: I73.9 Peripheral vascular disease, unspecified (principal); I65.23 Occlusion and stenosis of bilateral carotid arteries
CPT/HCPCS: 99213

== ENCOUNTER → 2023-03-25 12:49 | Outpatient (BNVA) | payer MEDICARE, MEDICAID, SELFPAY | PROVIDERS: PCP Internal Medicine; Visit Provider Surgery Vascular Surgery | DX: I73.9 Peripheral vascular disease, unspecified (principal); I65.23 Occlusion and stenosis of bilateral carotid arteries | CPT/HCPCS: 99212 ==

== ENCOUNTER 2023-04-13 09:59 | Outpatient (REF) | payer MEDICARE, MEDICAID, SELFPAY ==
[2023-04-13 12:09] LABS: Cholesterol 106 mg/dL (<200); HDL Cholesterol 44 mg/dL (>40); LDL Cholesterol Calculated 32 mg/dL (<100); Triglycerides 150 mg/dL (<150)
[2023-04-13 13:44] LABS: Reflex LDLD? No
== END 2023-04-13 10:00 | disposition home or self-care (01) ==
LOC: HO.HHCL 09:59
PROVIDERS: Visit Provider Internal Medicine
DX: E11.51 Type 2 diabetes mellitus with diabetic peripheral angiopathy without gangrene (principal); E11.22 Type 2 diabetes mellitus with diabetic chronic kidney disease; N18.31 Chronic kidney disease, stage 3a; E78.2 Mixed hyperlipidemia; Z79.4 Long term (current) use of insulin
CPT/HCPCS: 36415; 80061

== ENCOUNTER 2023-06-07 10:04 | Outpatient (AMB) | payer MEDICARE, MEDICAID, SELFPAY ==
[2023-06-07 10:06] VITALS: BP 132/66; PULSE 65; BMI 29.7
--- NOTE | 2023-06-07 10:06 | A.OFFVIS_ITS ---
Intake Vital Signs 06/07/23 10:06 Height 5 ft 10 in Weight 207 lb 3.752 oz BMI 29.7 BP 132/66 Blood Pressure Location Lt brachial Position Sitting Pulse 65 Intake Visit Reasons: 1 yr f/up Intake Note: 1 year follow-up with ekg feeilng good Sales Administrator Required: Yes Sales Administrator Name: [facility] Ceramic Engineering Professor: Ceramic Engineering Professor Present Accompanied by: Spouse Allergies lisinopril [LISINOPRIL] Allergy (Severe, Verified 03/25/23 13:32) ANGIOEDEMA, tongue swelling adhesive Allergy (Intermediate, Verified 03/25/23 13:32) EKG LEADS BLISTER Medication List - Last Reconciled 06/07/23 by Robby Weber MD allopurinol 300 mg PO DAILY amlodipine 10 mg PO DAILY aspirin (Ecotrin Low Strength) 81 mg PO DAILY atorvastatin 40 mg PO DAILY cilostazol 100 mg PO BID insulin detemir U-100 30 units subcut BEDTIME insulin syringe-needle U-100 As directed metoprolol tartrate 50 mg PO BID oxycodone-acetaminophen 5-325 mg 1 tab PO TID PRN spironolactone 25 mg PO BID tamsulosin 0.8 mg PO DAILY zolpidem 5 mg PO BEDTIME PRN HPI HPI Comments History of Present Illness Details Leroy comes for follow-up. History was obtained with help of a certified holder pile driving in the room. Patient said he has been doing well. Has been seeing vascular surgery routinely. Has no symptoms of chest pain. Although he continues to have symptoms of claudication walking 5 minutes. He said he does not walk for longer than that because of the pain. He has been having stable claudication as per the vascular surgery note. Although this is obviously clinically limiting. Denies any heart failure symptoms. Tolerating all his medications. No bleeding issues or neurologic events. Last LDL at 32 mg/dL. Denies smoking. [facility] Medical History Hyperlipidemia HTN (hypertension) Peripheral vascular disease Carotid artery disease CAD (coronary artery disease) Surgical History Stented coronary artery Hx of endoscopy Hx of colonoscopy Hx of cardiac cath Family History Father CVD (cardiovascular disease) Mother CVD (cardiovascular disease) Review of Systems Const Denies chills, Denies fatigue, Denies fever(s), Denies frequent falls, Denies weakness, Denies weight gain and Denies weight loss ENT Denies dizziness Card Denies chest pain, Denies leg edema, Denies lightheadedness, Denies palpitations, Denies dyspnea, Denies dyspnea on exertion, Denies orthopnea and Denies other (loss of consciousness) Resp Denies cough, Denies dyspnea and Denies dyspnea on exertion GI Denies hematochezia and Denies change in stool character Musc Denies abnormal gait, Denies muscle weakness, Denies numbness, Denies radiating pain into limb and Denies tingling Neuro Denies abnormal gait, Denies dizziness, Denies frequent falls, Denies numbness, Denies tingling and Denies weakness Endo Denies fatigue and Denies palpitations Physical Exam Vital Signs: Last Vital Signs Pulse 65 06/07/23 10:06 BP 132/66 06/07/23 10:06 BMI result Body Mass Index 29.7 Const General: cooperative, comfortable, no acute distress, alert and awake Nutritional Appearance: overweight Orientation/consciousness: patient oriented x3 Limitations: no limitations Neck Neck: Yes trachea midline, Yes supple and Yes no JVD Carotids: bruit on the right Chest Chest palpation & inspection: normal inspection of the chest Resp Effort & Inspection: normal respiratory effort Auscultation: wheezes left lower and diminished lung sounds Cardio Jugular venous distension: no JVD Palpation: normal PMI Rate: regular rate Rhythm: regular rhythm Heart sounds: S1 normal heart sound present and S2 normal heart sound present Peripheral pulses: other (Reduced distal pulses) GI Auscultation: normal bowel sounds Skin General skin exam: no rashes or lesions noted Neuro General: patient oriented x3 and no focal motor deficits Extrem General: Yes no clubbing, cyanosis or edema Psych Appearance: grossly normal Office Procedures EKG Details: EKG shows normal sinus rhythm with left axis deviation with poor R-wave progression otherwise no significant ST T wave changes [id number], Complete Assessment & Plan Assessment & Plan (1) CAD (coronary artery disease): Code(s): I25.10 - Atherosclerotic heart disease of [place] coronary artery without angina pectoris Plan: Diffuse and severe vascular disease with prior stenting to the RCA and the circumflex artery with abnormal stress test about 2 years ago but no symptoms angina. This is possibly related to medical therapy as well as related to limited exercise activity with limitations related to claudication and not getting any anginal symptoms at this point time. We discussed about anginal symptoms advised to call me with any new symptoms. Continue aggressive risk factor modification. Currently on aspirin therapy as cilostazol therapy. I would consider low-dose anticoagulation with Xarelto to reduce risk of cardi ovascular as well as limb loss events. Will defer to vascular surgery for the same. LDL is extremely well optimized on current statin therapy. Continue aggressive diabetes management goal hemoglobin A1c less than 7%. Continue aggressive blood pressure control. Given his limiting claudication I did offer him cardiac rehabilitation to improve exercise performance and improve quality of life. He wants to think about it, not very interested in it (2) HTN (hypertension): Code(s): I10 - Essential (primary) hypertension Plan: Hypertension which is currently well optimized advised to monitor blood pressure at home maintain a log. Goal blood pressure less 30/84. Low-salt diet was di scussed. Importance of compliance with medication was discussed. Continue current therapy. Follow up in the clinic in 1 year's time after a stress test. Thank you for allowing me to partake in his care Coding Level of Care Code Est Pt Level 4 (72451) Diagnoses CAD (coronary artery disease) I25.10 HTN (hypertension) I10 CPT Codes EKG - CPT: 63082-[id number], Complete ([id number])
== END 2023-06-07 10:50 | disposition home or self-care (01) ==
PROVIDERS: Visit Provider Internal Medicine Cardiovascular Disease
DX: I25.10 Atherosclerotic heart disease of native coronary artery without angina pectoris (principal); I10 Essential (primary) hypertension
CPT/HCPCS: 93010; 99214

== ENCOUNTER → 2023-06-07 10:04 | Outpatient (BNVA) | payer MEDICARE, MEDICAID, SELFPAY | PROVIDERS: Visit Provider Internal Medicine Cardiovascular Disease | DX: I25.10 Atherosclerotic heart disease of native coronary artery without angina pectoris (principal); I10 Essential (primary) hypertension | CPT/HCPCS: 93005; 99212 ==

== ENCOUNTER 2023-09-23 09:33 | Outpatient (REF) | payer MEDICARE, MEDICAID, SELFPAY ==
--- NOTE | ~2023-09-23 | US_ITS ---
EXAMINATION: US EXTRACRANIAL CAROTID DUPLEX, BILATERAL CLINICAL INFORMATION: Left carotid occlusion, history of right carotid endarterectomy COMPARISON: 06/24/2021 TECHNIQUE: Real-time ultrasound and Doppler techniques (integrating B-mode 2-D vascular images, Doppler spectral analysis and color-flow Doppler imaging) were utilized to interrogate the extracranial carotid arteries, the vertebral arteries and proximal subclavian arteries bilaterally. The degree of stenosis is determined by criteria similar to NASCET. FINDINGS: Right Side: 1. Status post right carotid endarterectomy with minimal atherosclerotic plaque seen in the bifurcation/proximal ICA region. 2. The common carotid artery PSV proximally is 65 cm/s and distally 67 cm/s. 3. The proximal internal carotid artery velocities are 113 cm/s systolic and 28 cm/s diastolic. 4. The proximal external carotid artery PSV is 241 cm/s. 5. The vertebral artery shows antegrade flow. 6. The subclavian artery waveforms are normal. Left Side: 1. There is chronic occlusion of the left internal carotid artery . 2. The common carotid artery PSV proximally is 96 cm/s and distally 90 cm/s. 3. The proximal external carotid artery PSV is 160 cm/s. 5. The vertebral artery shows antegrade flow. 6. The subclavian artery waveforms are normal. US/US carotid duplex BI IMPRESSION: 1. RIGHT: Status post carotid endarterectomy. Minimal, non-hemodynamically significant stenosis of the proximal right internal carotid artery corresponding to a 0-49% stenosis by velocity criteria. 2. LEFT: Chronic occlusion of the left internal carotid artery. 3. There is no change in the category severity of disease when compared to the previous study dated 06/24/21.
--- NOTE | ~2023-09-23 | US_ITS ---
EXAMINATION: US BILATERAL LOWER EXTREMITY DUPLEX. CLINICAL INFORMATION: Peripheral vascular disease COMPARISON: Duplex arterial ultrasound 02/16/2023 TECHNIQUE: Duplex Doppler techniques with wave form analysis and measurement of velocities in the common femoral, profunda femoral, superficial femoral, popliteal, tibial and peroneal arteries was performed. The study was performed only at rest. FINDINGS: RIGHT LEG: Common femoral artery: 121 cm/s, Multiphasic Profunda femoris artery: 131 cm/s, biphasic Superficial femoral artery (proximal): 96 cm/s, monophasic Superficial femoral artery (mid): 25 cm/s, monophasic Superficial femoral artery (distal): 90 cm/s, monophasic Popliteal artery: 240 cm/s, monophasic Anterior tibial artery: 36 cm/s, biphasic (previously occluded) Mid posterior tibial artery: 33 cm/s, monophasic (previously occluded) Peroneal artery: 27 cm/s, Multiphasic Dorsalis pedis: 20 cm/s. Biphasic LEFT LEG: Common femoral artery: 114 cm/s, Multiphasic Profunda femoris artery: 321 cm/s, biphasic Superficial femoral artery (proximal): 84 cm/s, biphasic Superficial femoral artery (mid): 97 cm/s, monophasic Superficial femoral artery (distal): Stent patent with biphasic waveform morphology. No evidence of stenosis. Popliteal artery: 53 cm/s, monophasic Anterior tibial artery: 49 cm/s, biphasic Mid posterior tibial artery: 45 cm/s, biphasic Peroneal artery: 11 cm/s, monophasic. US/US arterial duplex BI w/ ROSIE IMPRESSION: Right lower extremity: 1. Severe stenosis of the right popliteal artery. 2. Previously occluded right mid superficial femoral artery demonstrates very low velocities, which may be due to retrograde flow from intramuscular collaterals. 3. Previously occluded anterior tibial and posterior tibial arteries are now patent. Left lower extremity: 1. Severe stenosis of the left proximal profunda artery. 2. Patent distal SFA stent without stenosis. 3. Previously occluded posterior tibial and peroneal arteries are now patent.
== END 2023-09-23 09:34 | disposition home or self-care (01) ==
LOC: HO.US 09:33
PROVIDERS: PCP Internal Medicine; Visit Provider Surgery Vascular Surgery
DX: I65.23 Occlusion and stenosis of bilateral carotid arteries (principal); I73.9 Peripheral vascular disease, unspecified
CPT/HCPCS: 93880; 93922; 93925

== ENCOUNTER 2023-11-09 11:00 | Outpatient (AMB) | payer MEDICARE, MEDICAID, SELFPAY ==
[2023-11-09 11:07] VITALS: BP 116/62; BMI 30.3
--- NOTE | 2023-11-09 11:07 | A.OFFVIS_ITS ---
Vital Signs 11/09/23 11:07 11/09/23 11:09 Height 5 ft 10 in Weight 211 lb BMI 30.3 BP 116/62 110/68 Blood Pressure Location Lt brachial Rt brachial Position Sitting Sitting Intake Visit Reasons: Follow Up Carotid US Intake Note: Leroy is a 73 year old male who presents to the office today for a follow up carotid US. Pt states he is overall feeling well and has no concerns at this time. Allergies lisinopril [LISINOPRIL] Allergy (Severe, Verified 11/09/23 11:10) ANGIOEDEMA, tongue swelling adhesive Allergy (Intermediate, Verified 11/09/23 11:10) EKG LEADS BLISTER HPI HPI Follow Up Carotid US: Details: Very pleasant 73-year-old gentleman presents for surveillance follow-up regarding peripheral vascular disease. He has had previous right carotid endarterectomy and has followed up with us for that. In addition he does have PA D and has prior endovascular intervention. Both of which has been performed at [facility]. At the current time he appears to be doing relatively well. Able to walk a block at most. He is able to carry out his daily activities. He is being maintained on aspirin statin and cilostazol. He now presents for routine follow-up [facility] Medical History Hyperlipidemia HTN (hypertension) Peripheral vascular disease Carotid artery disease CAD (coronary artery disease) Surgical History Stented coronary artery Hx of endoscopy Hx of colonoscopy Hx of cardiac cath Family History Father CVD (cardiovascular disease) Mother CVD (cardiovascular disease) Review of Systems Const All systems reviewed & are unremarkable except as noted in HPI and below Reports no additional complaints ENT Reports Normal hearing present Card Denies chest pain, Denies chest pain at rest, Denies chest pain with activity and Denies pedal edema Resp Denies cough GI Denies abdominal pain Musc Denies abnormal gait, Denies muscle cramps and Denies radiating pain into limb Skin/Breast Denies skin ulcer and Denies wounds Neuro Reports Normal hearing present and Denies abnormal gait Psych Reports no additional complaints Physical Exam Vital Signs: Last Vital Signs BP 110/68 11/09/23 11:09 BMI result Body Mass Index 30.3 Const General: cooperative, healthy appearing and comfortable Orientation/consciousness: oriented to person, oriented to place and oriented to time HEENT Head: Yes normal to inspection Neck Neck: Yes normal visual inspection Carotids: no bruits Chest Chest palpation & inspection: normal inspection of the chest Resp Effort & Inspection: normal respiratory effort and able to speak in complete sentences Auscultation: clear to auscultation bilaterally, no crackles, no rales, no rhonchi and no wheezes Cardio Other: Bilateral DP signal Rate: regular rate Rhythm: regular rhythm Heart sounds: S1 normal heart sound present and S2 normal heart sound present Bruits: no carotid bruits Peripheral pulses: Peripheral pulses 2+ throughout GI Inspection: Yes normal to inspection Skin Wounds: no wounds Hair: normal Neuro General: oriented to person, oriented to place and oriented to time Cranial nerves: Yes CN's II-XII intact bilaterally and Yes Normal hearing present Cognition (Neuro): normal cognition Motor exam (neuro): 5/5 motor strength present throughout Extrem Other: venous exam: No significant superficial varicosities or spider telangiectasias, minimal edema General: No clubbing, No cyanosis and No edema Psych Appearance: grossly normal Mental Status: mental status grossly normal Speech and movement: Normal speech and movement present Assessment & Plan Assessment & Plan (1) Bilateral carotid artery disease: Comment: 2000 - right carotid endarterectomy at [facility] Code(s): I77.9 - Disorder of arteries and arterioles, unspecified Category: Medical Qualifiers: Carotid artery disease type: stenosis Qualified Code(s): I65.23 - Occlusion and stenosis of bilateral carotid arteries Plan: In short patient has asymptomatic carotid disease. We have reviewed signs and symptoms of a stroke. We also discussed risk factor modification inclusive a healthy diet low in cholesterol. The patient will follow up with us with surveillance ultrasound of the carotids 1 year. Should there be any changes or signs or symptoms of a stroke we will be happy to see them back sooner. Thank you for allowing us to participate in this patient's care. If there are any questions or concerns please do not hesitate to contact us. Please note a longitudinal relationship has been created with the patient and we have been following and surveillance this chronic condition. (2) Peripheral vascular disease: Comment: Approximately 2009 - left SFA stent Code(s): I73.9 - Peripheral vascular disease, unspecified Category: Medical Plan: In short patient has stable claudication. I did review the pathophysiology of peripheral vascular disease with the patient. In addition we did discuss routine conservative measures including a healthy diet and the importance of exercise and ambulation. We did discuss risk factor modification. The patient will continue to to follow-up with surveillance follow-up in approximately 1 year. Thank you for allowing us to participate in this patient's care. If there are any questions or concerns please do not hesitate to contact us. Orders: Orders US arterial duplex LE BI 1 Year I73.9 - Peripheral vascular disease, unspecified US carotid duplex BI 1 Year I65.23 - Occlusion and stenosis of bilateral carotid arteries Coding Level of Care Code Est Pt Level 4 (94304) Complex EM visit Add On [id number] Diagnoses Bilateral carotid artery stenosis I65.23 Carotid artery disease type: stenosis Peripheral vascular disease I73.9
[2023-11-09 11:09] VITALS: BP 110/68
== END 2023-11-09 11:31 | disposition home or self-care (01) ==
PROVIDERS: PCP Internal Medicine; Visit Provider Surgery Vascular Surgery
DX: I65.23 Occlusion and stenosis of bilateral carotid arteries (principal); I73.9 Peripheral vascular disease, unspecified
CPT/HCPCS: 99214; G2211

== ENCOUNTER → 2023-11-09 11:00 | Outpatient (BNVA) | payer MEDICARE, MEDICAID, SELFPAY | PROVIDERS: PCP Internal Medicine; Visit Provider Surgery Vascular Surgery | DX: I65.23 Occlusion and stenosis of bilateral carotid arteries (principal); I73.9 Peripheral vascular disease, unspecified | CPT/HCPCS: 99212 ==

== ENCOUNTER 2024-02-09 09:11 | Outpatient (REF) | payer MEDICARE, MEDICAID, SELFPAY ==
[2024-02-09 12:00] LABS: Creatinine Urine 77.27 mg/dL; Microalbum/Creatinine Ratio Ur 103.5 ug/mg cr (<30)
[2024-02-09 12:11] LABS: Alanine Aminotransferase 23 U/L (0-40); Albumin Level 4.1 g/dL (3.5-5.0); Alkaline Phosphatase 96 U/L (39-117); Anion Gap 16 (12-20); Aspartate Amino Transferase 23 U/L (5-37); Bilirubin Total 0.8 mg/dL (0.0-1.0); Blood Urea Nitrogen 14 mg/dL (9-16); Calcium 9.4 mg/dL (8.4-10.2); Carbon Dioxide 28 mmol/L (22-29); Chloride 105 mmol/L (96-108); Cholesterol 95 mg/dL (<200); Estimated Glomerular Filt Rate 42; Glucose Random 85 mg/dL (60-115); HDL Cholesterol 39 mg/dL (>40); LDL Cholesterol Calculated 35 mg/dL (<100); Potassium 4.4 mmol/L (3.3-5.1); Sodium 145 mmol/L (135-145); Total Protein 7.2 g/dL (6.5-8.0); Triglycerides 107 mg/dL (<150)
[2024-02-09 12:21] LABS: Prostate Specific Antigen Scr 1.01 ng/mL (<0.05-4.0)
== END 2024-02-09 09:12 | disposition home or self-care (01) ==
LOC: HO.HHCL 09:11
PROVIDERS: Visit Provider Internal Medicine
DX: Z00.00 Encounter for general adult medical examination without abnormal findings (principal); Z12.5 Encounter for screening for malignant neoplasm of prostate; I12.9 Hypertensive chronic kidney disease with stage 1 through stage 4 chronic kidney disease, or unspecified chronic kidney disease; E11.22 Type 2 diabetes mellitus with diabetic chronic kidney disease; N18.31 Chronic kidney disease, stage 3a; E11.51 Type 2 diabetes mellitus with diabetic peripheral angiopathy without gangrene; Z79.4 Long term (current) use of insulin
CPT/HCPCS: 36415; 80053; 80061; 82043; 82570; 84153

== ENCOUNTER 2024-02-16 09:01 | Outpatient (REF) | payer MEDICARE, MEDICAID, SELFPAY ==
[2024-02-16 11:44] LABS: Alanine Aminotransferase 20 U/L (0-40); Albumin Level 4.2 g/dL (3.5-5.0); Alkaline Phosphatase 89 U/L (39-117); Anion Gap 11 (12-20); Aspartate Amino Transferase 27 U/L (5-37); Bilirubin Total 0.7 mg/dL (0.0-1.0); Blood Urea Nitrogen 19 mg/dL (9-16); Calcium 9.5 mg/dL (8.4-10.2); Carbon Dioxide 29 mmol/L (22-29); Chloride 108 mmol/L (96-108); Estimated Glomerular Filt Rate 41; Glucose Random 101 mg/dL (60-115); Potassium 3.9 mmol/L (3.3-5.1); Sodium 144 mmol/L (135-145); Total Protein 7.4 g/dL (6.5-8.0)
[2024-02-16 11:55] LABS: Prostate Specific Antigen Scr 1.03 ng/mL (<0.05-4.0)
== END 2024-02-16 09:02 | disposition home or self-care (01) ==
LOC: HO.HHCL 09:01
PROVIDERS: Visit Provider Internal Medicine
DX: Z00.00 Encounter for general adult medical examination without abnormal findings (principal); Z12.5 Encounter for screening for malignant neoplasm of prostate; I10 Essential (primary) hypertension
CPT/HCPCS: 36415; 80053; 84153

== ENCOUNTER 2024-02-29 08:01 | Outpatient (REF) | payer MEDICARE, MEDICAID, SELFPAY ==
[2024-02-29 08:19] LABS: MANUAL DIFF FLAG NO
[2024-02-29 08:34] LABS: Basophils Percent Auto 0.2 % (0-2); Eosinophils Absolute Auto 0.2 X10*3/uL (0.0-0.4); Eosinophils Percent Auto 1.8 % (0-4); Hematocrit 41.3 % (42.0-52.0); Hemoglobin 13.9 g/dl (14.0-18.0); Imm Gran Abs Auto 0.06 X10*3/uL (0.00-0.03); Imm Gran Pct Auto 0.6 % (0.0-0.4); Lymphocytes Absolute Auto 2.1 X10*3/uL (1.2-4.9); Lymphocytes Percent Auto 21.3 % (20-40); Mean Corpuscular HGB Conc 33.7 g/dl (31.0-36.0); Mean Corpuscular Hemoglobin 30.3 pg (27.0-33.0); Mean Corpuscular Volume 90.2 fL (80.0-98.0); Mean Platelet Volume 9.5 fL (9.4-12.4); Monocytes Absolute Auto 0.7 X10*3/uL (0.1-1.2); Monocytes Percent Auto 6.9 % (2-11); Neutrophils Absolute Auto 6.7 x10*3/uL (2.0-8.3); Neutrophils Percent Auto 69.2 % (45-73); Platelet Count 221 X10*3/uL (160-400); Red Blood Count 4.58 X10*6/uL (4.60-5.80); Red Cell Distribution Width 13.2 % (11.0-16.0); White Blood Count 9.6 X10*3/uL (4.8-10.8)
[2024-02-29 09:03] LABS: Albumin Level 4.1 g/dL (3.5-5.0); Anion Gap 11 (12-20); Blood Urea Nitrogen 18 mg/dL (9-16); Calcium 9.2 mg/dL (8.4-10.2); Carbon Dioxide 25 mmol/L (22-29); Chloride 107 mmol/L (96-108); Estimated Glomerular Filt Rate 37; Magnesium 2.1 mg/dL (1.6-2.6); Parathyroid Hormone Intact 142.8 pg/mL (8.7-77.1); Phosphorus 3.4 mg/dL (2.7-4.5); Sodium 139 mmol/L (135-145)
[2024-02-29 09:17] LABS: Vitamin D 25-OH Total 7.3 ng/mL (>30)
[2024-02-29 09:25] LABS: Appearance Urine Clear; Color Urine Yellow; Creatinine Urine 88.12 mg/dL; Glucose Urine UA Negative (Negative); Leukocyte Esterase Urine Negative (Negative); Microalbum/Creatinine Ratio Ur 99.8 ug/mg cr (<30); Nitrite Urine Negative (Negative); Protein/Creatinine Ratio, Ur 0.19 (<0.2); Total Protein Urine Random 17 mg/dL (<12); Urine Blood Negative (Negative); Urine Ketones Negative (Negative); Urine Protein Negative (Neg-Trace)
== END 2024-02-29 08:02 | disposition home or self-care (01) ==
LOC: HO.LAB 08:01
PROVIDERS: PCP Internal Medicine; Visit Provider Internal Medicine Nephrology
DX: N18.31 Chronic kidney disease, stage 3a (principal); E11.22 Type 2 diabetes mellitus with diabetic chronic kidney disease
CPT/HCPCS: 36415; 80051; 81003; 82040; 82043; 82306; 82310; 82565; 82570; 83735; 83970; 84100; 84156; 84520; 85025; 87086

== ENCOUNTER 2024-06-12 09:08 | Outpatient (AMB) | payer MEDICARE, MEDICAID, SELFPAY ==
[2024-06-12 09:23] VITALS: BP 118/72; PULSE 64; BMI 31.0
--- NOTE | 2024-06-12 09:23 | MHC.OFFVIS ---
Vital Signs 06/12/24 09:23 Height 5 ft 10 in Weight 216 lb 0.848 oz BMI 31.0 BP 118/72 Blood Pressure Location Lt brachial Position Sitting Pulse 64 Intake Visit Reasons: 1 yr f/up Intake Note: 1 year follow-up with ekg feeling good Chick Room Supervisor Required: Yes Chick Room Supervisor Services: Chick Room Supervisor Present Chick Room Supervisor Name: steve Devi Rail Detector Car Operator: Rail Detector Car Operator Present Accompanied by: Spouse Allergies lisinopril [LISINOPRIL] Allergy (Severe, Verified 11/09/23 11:10) ANGIOEDEMA, tongue swelling adhesive Allergy (Intermediate, Verified 11/09/23 11:10) EKG LEADS BLISTER Medication List - Last Reconciled 06/12/24 by Robby Weber MD allopurinol 300 mg PO DAILY amlodipine 10 mg PO DAILY aspirin (Ecotrin Low Strength) 81 mg PO DAILY atorvastatin 40 mg PO DAILY cilostazol 100 mg PO BID insulin detemir U-100 30 units subcut BEDTIME insulin syringe-needle U-100 As directed metoprolol tartrate 50 mg PO BID oxycodone-acetaminophen 5-325 mg 1 tab PO TID PRN spironolactone 25 mg PO BID tamsulosin 0.8 mg PO DAILY zolpidem 5 mg PO BEDTIME PRN HPI Comments Details: Leroy comes for follow-up. He is accompanied by his . History was obtained with help of bilingual interpreter. He has not had any active cardiac symptoms although he said he does not walk much due to swelling and pain in his left knee. He denies any clear symptoms of claudication although this is difficult to a certain from him. He has been taking all his medications regularly. Has not had any vascular follow-up recently. Denies any prolonged palpitation irregular heartbeat. No orthopnea, PND, leg edema. Last cholesterol, LDL was 35 mg/dL which is extremely well optimized for his vascular disease. [facility] Medical History Hyperlipidemia HTN (hypertension) Peripheral vascular disease Carotid artery disease CAD (coronary artery disease) Surgical History Stented coronary artery Hx of endoscopy Hx of colonoscopy Hx of cardiac cath Family History Father CVD (cardiovascular disease) Mother CVD (cardiovascular disease) Review of Systems Const Denies chills, Denies fatigue, Denies fever(s), Denies frequent falls, Denies weakness, Denies weight gain and Denies weight loss ENT Denies dizziness Card Denies chest pain, Denies leg edema, Denies lightheadedness, Denies palpitations, Denies dyspnea, Denies dyspnea on exertion, Denies orthopnea and Denies other (loss of consciousness) Resp Denies cough, Denies dyspnea and Denies dyspnea on exertion GI Denies hematochezia and Denies change in stool character Musc Denies abnormal gait, Denies muscle weakness, Denies numbness, Denies radiating pain into limb and Denies tingling Neuro Denies abnormal gait, Denies dizziness, Denies frequent falls, Denies numbness, Denies tingling and Denies weakness Endo Denies fatigue and Denies palpitations Physical Exam Vital Signs: Last Vital Signs Pulse 64 06/12/24 09:23 BP 118/72 06/12/24 09:23 BMI result Body Mass Index 31.0 Const General: cooperative, comfortable, no acute distress, alert and awake Nutritional Appearance: overweight Orientation/consciousness: patient oriented x3 Limitations: no limitations Neck Neck: Yes trachea midline, Yes supple and Yes no JVD Carotids: bruit on the right Chest Chest palpation & inspection: normal inspection of the chest Resp Effort & Inspection: normal respiratory effort Auscultation: wheezes left lower and diminished lung sounds Cardio Jugular venous distension: no JVD Palpation: normal PMI Rate: regular rate Rhythm: regular rhythm Heart sounds: S1 normal heart sound present and S2 normal heart sound present Peripheral pulses: other (Reduced distal pulses) GI Auscultation: normal bowel sounds Skin General skin exam: no rashes or lesions noted Neuro General: patient oriented x3 and no focal motor deficits Extrem General: Yes no clubbing, cyanosis or edema Psych Appearance: grossly normal Office Procedures EKG Details: EKG shows normal sinus rhythm with left axis deviation with poor R-wave progression 16412-[id number], Complete Assessment & Plan Assessment & Plan (1) CAD (coronary artery disease): Code(s): I25.10 - Atherosclerotic heart disease of [place] coronary artery without angina pectoris Category: Medical Plan: Diffuse and significant atherosclerotic disease in this elderly gentleman with prior stenting with no current symptoms of angina although this Mibi mass because of his limited exercise capacity. Consider orthopedic reference. He is scheduled to undergo a vasodilating myocardial perfusion imaging to assess for stent patency in the near future. Continue aggressive vascular risk factor modification currently on low-dose aspirin therapy. Given his diffuse vascular disease consider low-dose oral anticoagulant therapy with Xarelto 2.5 mg b.i.d.. Continue high-intensity statin therapy with well optimized LDL at current point time. Continue aggressive diabetes management goal hemoglobin A1c less than 7%. Continue aggressive blood pressure control, see below. (2) HTN (hypertension): Code(s): I10 - Essential (primary) hypertension Category: Medical Plan: Hypertension which is well optimized with chronic kidney disease. Continue monitor potassium and kidney function every 3 months. Consider renal duplex to assess for renal artery stenosis. Blood pressure is otherwise well optimized importance of good blood pressure control was discussed. Understands agrees. Continue current therapy. Low-salt diet was discussed. Will follow up in the clinic in 1 year's time, sooner p.r.n.. Thank you for allowing me to partake in his care Coding Level of Care Code Est Pt Level 4 (21492) Complex EM visit Add On G2211 Diagnoses CAD (coronary artery disease) I25.10 HTN (hypertension) I10 CPT Codes EKG - CPT: 35174-[id number], Complete ([id number])
== END 2024-06-12 10:02 | disposition home or self-care (01) ==
LOC: HO.HCS 09:09
PROVIDERS: PCP Internal Medicine; Visit Provider Internal Medicine Cardiovascular Disease
DX: I25.10 Atherosclerotic heart disease of native coronary artery without angina pectoris (principal); I10 Essential (primary) hypertension
CPT/HCPCS: 93010; 99214; G2211

== ENCOUNTER → 2024-06-12 09:08 | Outpatient (BNVA) | payer MEDICARE, MEDICAID, SELFPAY | PROVIDERS: PCP Internal Medicine; Visit Provider Internal Medicine Cardiovascular Disease | DX: I25.10 Atherosclerotic heart disease of native coronary artery without angina pectoris (principal); I10 Essential (primary) hypertension | CPT/HCPCS: 93005; 99212 ==

== ENCOUNTER → 2024-06-27 07:46 | Outpatient (REF) | payer MEDICARE, MEDICAID, SELFPAY ==
--- NOTE | ~2024-06-27 | NM_ITS ---
Lexiscan Myocardial perfusion study Indication: Preoperative cardiovascular risk stratification Technique: The patient was brought in for a Lexiscan perfusion study on 06/27/2024 and was injected 0.4 mg of Lexiscan intravenously. Within a minute of this injection 35 mCi of sestamibi was given intravenously. Images were obtained using the SPECT gamma camera interlaced with the gating device. Images were obtained in supine position. Resting perfusion study was performed on 06/28/2024. Patient was administered 35 mCi of sestamibi intravenously at rest. Images were then obtained in supine position. Images obtained without without CT attenuation. Total DLP 115 mGy-cm. Images were processed with the software and compared side to side in short axis, horizontal long axis and vertical long axis views. Findings: The stress perfusion study showed nonattenuated images show absent uptake in the basal inferior as well as basal inferolateral is severely reduced uptake in the mid inferior and apical inferior and as well as the mid and basal inferolateral wall. Attenuated corrected images show moderately reduced uptake basal inferior and inferolateral wall of the LV myocardium. The gated study shows normal LV systolic function with calculated LVEF of 61%. LV cavity is normal in size. The gated study shows normal systolic wall thickening and contraction of except for basal inferior segments. Resting study shows no change in perfusion pattern compared to stress perfusion study. Gating at rest reveals the basal inferior wall motion abnormality with ejection fraction at 67%. The findings are consistent with no reversible ischemia with basal inferior and inferolateral defect suggestive nontransmural infarct. NM/NM cardiolite stress test Impression: 1. 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 Gated LVEF is 61% 3. Transient ischemic dilatation not present Nondiagnostic changes on EKG. Electronically signed by: Robby Weber MD 06/28/2024 02:03 PM EDT
--- NOTE | 2024-06-27 07:49 | CA_ITS ---
Acquisition Time: 2024-06-27 08:19:15 Total Exercise Time: 00:02:00 Test Indications: STENT PATENCY/CAD Medications: SEE H&P Protocol: LEXISCAN Max HR: 82 BPM 56% of Pred: 144 BPM Max BP: 138/70 mmHG Max Work Load: 1.0 METS Pharmacological stress test with Lexiscan while pt marches in his chair, with reports of SOB, with isolated PVCs, with normotensive response to exercise. Nondiagnostic EKG for ischemia. In recovery, breathing returned to baseline. Nuclear images pending. Test reviewed with Dr. Weber. Referred By: Robby Weber Electronically Signed By: Pedro Lange
--- OUTSIDE RECORDS SUMMARY | 2024-06-27 07:49 | XMS_ITS | Encounter Summary ---
Author Organization [employer] Address [address] [facility] [address] [place] [address] Care Team Providers Care Bread Stacker Name Role Phone Nikunj Gaviria MD Primary Care Provide r Dixie Adrian PharmD Unavailable [phone] Roberto Estrada MD Unavailable [phone] Reason for Visit * Reason Onset Date Comments Med Refill 09/08/2023 Encounter Details Date Type Department Care Team (Late st Contact Info) Description 09/08/2023 Telephone [facility] MEDICINE [address] [place] [address] Nikunj Gaviria MD [address] [place] [address] Med Refill Social History Tobacco Use Types Packs/Day Years Used Date Smoking Tobacco: Never Passive Smoke Exposure: Never Smokeless Tobacco: Never Depression Answer Date Recorded Patient Health Questionnaire-9 Score 0 09/09/2023 Patient Health Questionnaire-9 Score 0 09/09/2023 Last PHQ-9: Questionnaire Data Not on file 0 09/09/2023 Housing Stability Answer Date Recorded What is your housing situation today? I have serena dee 09/09/[address] you li ve. Do you have problems with any of the following? None of the above 09/09/2023 Food Insecurity Answer Date Recorded Within the past 12 months, y ou worried that your food would run out before you got money to buy more: Never True 09/09/2023 Within the past 12 months,th e food you bought just didn't last and you didn't have enough money to get more: Never True Transportation Answer Date Recorded In the past 12 months, has l ack of transportation kept you from medical appts, meetings, work or from getting things needed for daily living? No 09/09/2023 Utilities Answer Date Recorded In the past 12 months, has t he electric, gas, oil or water company threatened to shut off services in your home? No 09/09/2023 Depression Answer Date Recorded Patient Health Questionnaire-2 Score 0 09/09/2023 Sex and Gender Information Value Date Recorded Sex Assigned at Male 01/12/2022 10:14 AM EDT Legal Sex Male 10:14 AM EDT Gender Identity Male 01/12/2022 10:14 AM EDT Sexual Orientation Straight 01/12/2022 10 :14 AM EDT documented as of this encounter Miscellaneous Notes * Telephone Encounter - Lorraine Lazcano - 09/08/2023 9:31 AM EDT TC from pt requesting medication refill. Medications needing refill : oxyCODONE-acetaminophen (Percocet) 5-325 MG tablet To be sent to: [facility] - [place], [place] - [address] [place] [address] documented in this encounter Plan of Treatment Upcoming Encounters Date Type Department Care Team ([facility] st Contact Info) Description 08/28/2024 11:00 AM EDT Telemedicine [facility] MED [facility] PEDS [address] [place] [address] Abigail Lora, RAFAEL [address] [place] [address] 08/29/2024 10:15 AM EDT Office Visit [facility] [address] [place] [address] Nikunj Gaviria MD [address] [place] [address] 11/10/2024 10:00 AM EDT Office Visit [facility] OPT[facility] [address] [place] [address] Jennifer Croft, MATT [address] [place] [address] documented as of this encounter Goals Goal Patient Goal Type Associated Problems Recent Progress Patient-Stated? Author Keep fasting blood glucose between 70 and 130 Result Component Type 2 diabetes mellitus with diabetic chronic kidney disease On track(08/30/19 24 2:19 PM EDT) No Dixie Adrian, PharmD documented as of this encounter Visit Diagnoses Not on filedocumented in this encounter Additional Health Concerns Assessment Noted Time PHQ-9 Depression Total Score: 0 06/03/19 23 10:07 AM EDT documented as of this encounter Care Teams Bread Stacker Relationship Specialty Start Date End Date Nikunj Gaviria MD [address] [place] [address] PCP - General Internal Medicine 10/30/13 Dixie Adrian, PharmD [address] [place] [address] Pharmacist Internal Medicine 08/30/23 Roberto Estrada MD 100 [facility] [address] [place] [address] Nephrology 02/18/24 documented as of this encounter
--- OUTSIDE RECORDS SUMMARY | 2024-06-27 07:49 | XMS_ITS | Encounter Summary ---
Author Organization [employer] Address [address] [facility] 7t [place] [address] Care Team Providers Care Truck Crane Operator Helper Name Role Phone Nikunj Gaviria MD Primary Care Provide r Dixie Adrian PharmD Unavailable [phone] Roberto Estrada MD Unavailable [phone] Reason for Visit * Reason Comments Med Refill Encounter Details Date Type Department Care Team ([facility] st Contact Info) Description 12/05/[address] [facility] MEDICINE [address] [place] [address] Nikunj Gaviria MD [address] [place] [address] Primary insomnia Social History Tobacco Use Types Packs/Day Years [...] Recorded Patient Health Questionnaire-2 Score 0 09/09/2023 Internet Access Answer Date Recorded Internet Access Q1 Yes 11/12/2023 Internet Access Q2 Not on file 11/12/2023 Sex and Gender Information Value Date Recorded Sex Assigned at Male 01/12/2022 10:14 AM EDT Legal Sex Male 10:14 AM EDT Gender Identity Male 01/12/2022 10:14 AM EDT Sexual Orientation Straight 01/12/2022 10 :14 AM EDT documented as of this encounter Plan of Treatment Upcoming Encounters Date Type Department Care Team (Late st Contact Info) Description 08/28/2024 11:00 AM EDT Telemedicine [facility] CH[facility] MED & PEDS [address] [place] [address] Abigail Lora, RAFAEL [address] [place] [address] 08/29/2024 10:15 AM EDT Office Visit [facility] MEDICINE [address] [place] [address] Nikunj Gaviria MD [address] [place] [address] 11/10/2024 10:00 AM EDT Office Visit [facility] OPTOMETRY [address] [place] [address] Jennifer Croft, OD [address] [place] [address] documented as of this encounter Goals Goal Patient Goal Type Associated Problems Recent Progress Patient-Stated? Author Keep fasting blood glucose between 70 and 130 Result Component Type 2 diabetes mellitus with diabetic chronic kidney disease On track(08/30/19 24 2:19 PM EDT) No Dixie Adrian, PharmD documented as of this encounter Visit Diagnoses Diagnosis Primary insomnia Persistent disorder of initiating or maintaining sleep documented in this encounter Additional Health Concerns Assessment Noted Time PHQ-9 Depression Total Score: 0 09/09/19 24 11:04 AM EDT documented as of this encounter Care Teams Truck Crane Operator Helper Relationship Specialty Start Date End Date Nikunj Gaviria MD [address] [place] [address] PCP - General Internal Medicine 10/30/13 Dixie Adrian, HarshilD [address] [place] [address] Pharmacist Internal Medicine 08/30/23 Roberto Estrada MD 100 [facility] [address] [place] [address] Nephrology 02/18/24 documented as of this encounter
--- OUTSIDE RECORDS SUMMARY | 2024-06-27 07:49 | XMS_ITS | Encounter Summary ---
Author Organization [employer] Address [address] [facility] 7t [place] [address] Care Team Providers Care Seasoning Sprayer Name Role Phone Nikunj Gaviria MD Primary Care Provide r Dixie Adrian PharmD Unavailable [phone] Roberto Estrada MD Unavailable [phone] Reason for Visit * Reason Onset Date Comments Med Refill 08/10/2023 Encounter Details Date Type Department Care Team (Late st Contact Info) Description 08/10/2023 Telephone [facility] MEDICINE [address] [place] [address] Nikunj Gaviria MD [address] [place], [place] [id number] Med Refill Social History Tobacco Use Types Packs/Day Years Used Date Smoking Tobacco: Never Passive Smoke Exposure: Never Smokeless Tobacco: Never Depression Answer Date Recorded Patient Health Questionnaire-9 Score 0 06/02/2022 Housing Stability Answer Date Recorded What is your housing situation today? I have serena dee 12/30/[address] you li ve. Do you have problems with any of the following? None of the above 12/30/2022 Food Insecurity Answer Date Recorded Within the past 12 months, y ou worried that your food would run out before you got money to buy more: Never True 12/30/2022 Within the past 12 months,th e food you bought just didn't last and you didn't have enough money to get more: Never True Transportation Answer Date Recorded In the past 12 months, has l ack of transportation kept you from medical appts, meetings, work or from getting things needed for daily living? No 12/30/2022 Utilities Answer Date Recorded In the past 12 months, has t he electric, gas, oil or water company threatened to shut off services in your home? No 12/30/2022 Depression Answer Date Recorded Patient Health Questionnaire-2 Score 0 06/02/2022 Sex and Gender Information Value Date Recorded Sex Assigned at Male 01/12/2022 10:14 AM EDT Legal Sex Male 10:14 AM EDT Gender Identity Male 01/12/2022 10:14 AM EDT Sexual Orientation Straight 01/12/2022 10 :14 AM EDT documented as of this encounter Miscellaneous Notes * Telephone Encounter - Otilio Agarwal - 08/10/2023 12:47 PM EDT TC from pt requesting medication refill. Medications needing refill: oxyCODONE-acetaminophen (Percocet) 5-325 MG tablet To be sent to: [facility] documented in this encounter Plan of Treatment Upcoming Encounters Date Type Department Care Team (Late st Contact Info) Description 08/28/2024 11:00 AM EDT Telemedicine [facility] MED & PEDS [address] [place] [address] Abigail Lora, RN [address] [place] [address] 08/29/2024 10:15 AM EDT Office Visit [facility] MEDICINE [address] [place] [address] Nikunj Gaviria MD 230 [place] [address] 11/10/2024 10:00 AM EDT Office Visit [facility] OPTOMETRY [address] [place] [address] Jennifer Croft OD [address] [place] [address] documented as of this encounter Visit Diagnoses Not on filedocumented in this encounter Additional Health Concerns Assessment Noted Time PHQ-9 Depression Total Score: 0 06/03/19 23 10:07 AM EDT documented as of this encounter Care Teams Seasoning Sprayer Relationship Specialty Start Date End Date Nikunj Gaviria MD 230 [place] [address] PCP - General Internal Medicine 10/30/13 Dixie Adrian PharmD 230 [place] [address] Pharmacist Internal Medicine 08/30/23 Roberto Estrada MD [address] [phone] Nephrology 02/18/24 documented as of this encounter
--- OUTSIDE RECORDS SUMMARY | 2024-06-27 07:49 | XMS_ITS | Encounter Summary ---
Author Organization [employer] Address [address] [facility] [address] [place] [address] Care Team Providers Care Instrument Sterilizer Name Role Phone Nikunj Gaviria MD Primary Care Provide r Dixie Adrian PharmD Unavailable [phone] Roberto Estrada MD Unavailable [phone] Reason for Visit * Reason Onset Date Comments Med Refill 11/05/2023 Encounter Details Date Type Department Care Team (Late st Contact Info) Description 11/05/2023 Telephone [facility] MEDICINE [address] [place] [address] Nikunj Gaviria MD [address] [place] [address] Med Refill Social History Tobacco Use Types [...] encounter Miscellaneous Notes * Telephone Encounter - Chacha Burgess - 11/05/2023 9:41 AM EDT TC from pt Spouse requesting medication refill. Medications needing refill : oxyCODONE-acetaminophen (Percocet) 5-325 MG tablet To be sent to: [facility] documented in this encounter Plan of Treatment Upcoming Encounters Date Type Department Care Team (Late st Contact Info) Description 08/28/2024 11:00 AM EDT Telemedicine [facility] MED & PEDS [address] [place] [address] Abigail Lora, RN [address] [place] [address] 08/29/2024 10:15 AM EDT Office Visit [facility] MEDICINE [address] [place] [address] Nikunj Gaviria MD [address] [place] [address] 11/10/2024 10:00 AM EDT Office Visit [facility] OPTOMETRY [address] [place] [address] Jennifer Croft, OD [address] [place] [address] documented as of this encounter Goals Goal Patient Goal Type Associated Problems Recent Progress Patient-Stated? Author Keep fasting blood glucose between 70 and 130 Result Component Type 2 diabetes mellitus with diabetic chronic kidney disease On track(08/30/19 2:19 PM EDT) No Dixie Adrian, PharmD documented as of this encounter Visit Diagnoses Not on filedocumented in this encounter Additional Health Concerns Assessment Noted Time PHQ-9 Depression Total Score: 0 09/09/19 11:04 AM EDT documented as of this encounter Care Teams Instrument Sterilizer Relationship Specialty Start Date End Date Nikunj Gaviria MD [address] [place] [address] PCP - General Internal Medicine 10/30/13 Dixie Adrian, PharmD [address] [place] [address] Pharmacist Internal Medicine 08/30/23 Roberto Estrada MD 100 [facility] 200 [place] [address] Nephrology 02/18/24 documented as of this encounter
--- OUTSIDE RECORDS SUMMARY | 2024-06-27 07:49 | XMS_ITS | Clinical Summary ---
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 [place] 0.1 milliliter by intranasal route in 1 nostril may repeat dose every 2-3 minutes as needed alternating nostrils with each dose 12/10/19 22 Active clotrimazole (Lotrimin) 1 % cream Apply topically every 12 (twelve) hours. Apply by topical route 2 times every day to the affected and surrounding areas of skin in the morning and evening 11/20/19 22 Active glucose blood (FREESTYLE LITE) test strip 1 each every 8 (eight) hours. USE 1 Each by DIRECTED route 3 times every day 08/17/19 21 Active aspirin 81 MG EC tablet take 1 tablet (81MG) by oral route every day 04/11/19 16 Active tamsulosin (Flomax) 0.4 MG 24 hr capsule Take 1 capsule by mouth 1 (one) time each day. Take 1 capsule by oral route every day 1/2 hour following the same meal each day Active spironolactone (Aldactone) 25 MG tablet Take 1 tablet by mouth every 12 (twelve) hours. Active cilostazol (Pletal) 50 MG tablet Take 1 tablet by mouth every 12 (twelve) hours. Take 1 tablet by oral route 2 times every day 1/2 hour before or after 2 hours after breakfast and dinner Active Alcohol Swabs (Alcohol Prep) pads Apply 1 as directed to skin as directed Use as directed Active Blood Glucose Monitoring Suppl ([employer] Zhong[employer]ue) w/Device kit Test 1 times by intradermal route every day Active Blood Pressure kit Use 1 by Mis. (Non-Drug; Combo Route) route Active insulin syringe-needle U-100 (BD Insulin Syringe U/F) 31G X 5/16 0.5 mL miscIndications :Type 2 diabetes mellitus with stage 3 chronic kidney disease, without long-term current use of insulin, unspecified whether stage 3a or 3b CKD (CMS/HCC) USE DAILY INSTRUCTED 60 each 11 05/04/19 24 Active atorvastatin (Lipitor) 40 MG tablet TAKE 1 TABLET BY MOUTH AT BEDTIME 90 tablet 2 11/04/19 24 Active pen needle 32G x 4 mm misc Use as instructed once a day 100 each 12 11/12/19 24 Active metoprolol tartrate (Lopressor) 50 MG tabletIndicatio ns:Primary hypertension TAKE 1 TABLET (50 MG) BY MOUTH 2 TIMES DAILY. TAKE 1 TABLET BY MOUTH TWICE A DAY WITH MEALS 180 tablet 3 04/18/19 25 Active amLODIPine (Norvasc) 10 MG tabletIndicatio ns:Essential hypertension TAKE 1 TABLET BY MOUTH ONCE A DAY 90 tablet 04/18/19 25 Active Insulin Degludec FlexTouch 200 UNIT/ML solution pen-injectorInd ications:Type 2 diabetes mellitus with stage 3 chronic kidney disease, with long-term current use of insulin, unspecified whether stage 3a or 3b CKD (CMS/HCC) Inject 40 Units under the skin at bedtime. 3 mL 05/09/19 25 Active oxyCODONE-aceta minophen (Percocet) 5-325 MG tabletIndicatio ns:Pain Take 1 tablet by mouth every 8 (eight) hours if needed for severe pain. 84 tablet 06/07/19 25 Active zolpidem (Ambien) 10 MG tabletIndicatio ns:Primary insomnia TAKE 1 TABLET BY MOUTH EVERY DAY AT BEDTIME 30 tablet 06/07/19 25 Active allopurinol (Zyloprim) 300 MG tablet TAKE 1 TABLET BY MOUTH EVERY DAY 90 tablet 1 04/03/20 25 Active allopurinol (Zyloprim) 300 MG tablet TAKE 1 TABLET BY MOUTH EVERY DAY 90 tablet 1 01/11/20 24 2024 Discontinued oxyCODONE-aceta minophen (Percocet) 5-325 MG tabletIndicatio ns:Pain Take 1 tablet by mouth every 8 (eight) hours if needed for severe pain. 84 tablet 05/08/19 25 2024 Discontinued(R eorder (will not trigger notification to Pharmacy)) zolpidem (Ambien) 10 MG tabletIndicatio ns:Primary insomnia TAKE 1 TABLET BY MOUTH EVERY DAY AT BEDTIME 30 tablet 05/11/19 25 2024 Discontinued(R eorder (will not trigger notification to Pharmacy)) Active Problems Problem Noted Date Diagnosed Date Long-term current use of opiate analgesic 2024 Right lower quadrant abdominal pain 05/25/2024 Assessment & Plan (05/25/2024 10:19 AM EDT): Pt with c/o new onset of RLQ pain for x 1 month not associated with any other symptoms On today's exam, he has tenderness to deep palpation RLQ, no rebound no guarding neg [place], neg espinal. No evidence of acute abdomen Plan: UA. CBC, CT of abdomen and pelvis Pt already referred to GI for colonoscopy Discussed with patient if pain becomes constant and severe to present himself to the nearest ER Follow up after initial testing Class 1 obesity due to exces s calories with serious comorbidity and body mass index (BMI) of 31.0 to 31.9 in adult 05/04/2023 Assessment & Plan (05/04/2023 8:49 AM EST): Patient has been counseled and educated about diet and exercise. Personal goal of weight loss discussedPatient has comorbidity of: DM Vasculogenic erectile dysfunction 10/01/2022 Assessment & Plan (01/12/2023 8:44 AM EDT): Testosterone free and total 10/08/2022 Normal Assessment & Plan (10/01/2022 9:36 AM EDT): Will obtain testosterone free and total Preventative health care 06/02/2022 Assessment & Plan (05/25/2024 10:00 AM EDT): PSA: 02/16/2024 Normal Colonoscopy: 2014 ( Pt Dr Yoder ) Today will refer back Assessment & Plan (01/20/2024 9:17 AM EST): PSA: Ordered again, patient did not do it Colonoscopy: 2014 ( Pt Dr Yoder ) will refer back in 2024 Assessment & Plan (09/09/2023 11:10 AM EDT): PSA: ordered Colonoscopy: 2014 ( Pt Dr Yoder ) will refer back in 2024 Assessment & Plan (06/02/2022 10:16 AM EDT): Colonoscopy: 2014 ( Pt Dr Yoder ) Chronic neck pain 06/02/2022 Assessment & Plan (05/25/2024 9:56 AM EDT): Pt with persistent c/o right sided neck pain, for months No Hx of injury, pt describes it more prominent on the right side On exam decreased ROM , painful ROM Tylenol prn Pt declines PT plain films of his Cervical spine showed: -Mild rightward tilting cervical spine with mild straightening lordosis. -No cervical vertebral compression or subluxation. -Degenerative disc changes C3-C4, C4-C5, C5-C6, and C6-C7. -Mild bilateral foraminal spurring C4-C5, C5-C6, C6-C7. Wants to stay as is Assessment & Plan (06/02/2022 10:22 AM EDT): Pt with persistent c/o right sided neck pain, for months No Hx of injury, pt describes it more prominent on the right side On exam decreased ROM , painful ROM Tylenol prn Pt declines PT plain films of his Cervical spine showed: -Mild rightward tilting cervical spine with mild straightening lordosis. -No cervical vertebral compression or subluxation. -Degenerative disc changes C3-C4, C4-C5, C5-C6, and C6-C7. -Mild bilateral foraminal spurring C4-C5, C5-C6, C6-C7. Wants to stay as is Stenosis of right carotid artery 06/02/2022 Assessment & Plan (01/20/2024 8:57 AM EST): Pts carotid US 09/23/2023 that showed: 1. RIGHT: Status post carotid endarterectomy. Minimal, non-hemodynamically significant stenosis of the proximal right internal carotid artery corresponding to a 0-49% stenosis by velocity criteria. 2. LEFT: Chronic occlusion of the left internal carotid artery. 3. There is no change in the category severity of disease when compared to the previous study dated 06/24/21. Pt under the care of Dr Dom Cabello Vascular surgeon, last note on record 10/30/2023 He recommended 1 year follow up. Assessment & Plan (06/02/2022 10:24 AM EDT): Pts milling supervisor ordered a carotid doppler 06/08/2019 that showed: IGHT: Moderate, hemodynamically significant stenosis of the proximal right internal carotid artery corresponding to a 50-79% stenosis by velocity criteria. The category severity of disease appears more severe in the right internal carotid artery when compared to the previous study dated 10/05/2012. Pt was referred to Dr Dom Cabello Vascular surgeon, last note on record 07/2021 Pt prompted to call his office to schedule a follow up. Primary insomnia 06/02/2022 Assessment & Plan (05/25/2024 9:56 AM EDT): Using Ambien 5 mg po at bedtime c/o less effective Increase to 10 mg po qhs In home sleep study showed MILD KATI Assessment & Plan (04/13/2023 9:42 AM EST): Using Ambien 5 mg po at bedtime c/o less effective Increase to 10 mg po qhs In home sleep study showed MILD KATI Assessment & Plan (06/02/2022 10:32 AM EDT): Using Ambien 5 mg po at bedtime with good results In home sleep study showed MILD KATI Chronic anemia 06/02/2022 Assessment & Plan (06/02/2022 10:33 AM EDT): Recent CBC per nephrology showed mild anemia Repeat showed slight improvement B 12, Folate, Iron studies, SPEP, LDH unremarkable likely due to CKD History of CVA in adulthood 06/02/2022 Assessment & Plan (06/02/2022 10:39 AM EDT): Pt had a recent CT of brain from his Electrician Manager for c/o visual field defects. CT showed: NO acute CVA. 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 Pt on aggressive risk factor modification. Statin, Plavix Status post percutaneous transluminal coronary a ngioplasty 02/14/2022 Type 2 diabetes mellitus wit h diabetic chronic kidney disease 06/10/2021 Overview (08/30/2023): Pharmacotherapy: Updated 08/30/2023 - Tresiba 40 units QHS History: Updated 08/30/2023 Started CDTM today. Referred since most recent A1c in Mar 2023 was over 11%. A1c ordered today, repeat resulted 6.4%. At home morning BG readings range from 70-100mg/dl. Denies s&s of hypoglycemia. Used metformin the past, was d/c'd since DM was under control per patient. Reviewed diet; states that previous A1c was likely due to consumption of iced tea with sugar. He has since cut this from his diet. Assessment & Plan (05/25/2024 10:10 AM EDT): Pt here for a /u. He is on a regimen of Tresiba 40 units sc q pm. Off Metformin due to CKD Hgb A1c 05/25/2024 : 6.4 Last Eye exam was last done on: 05/12/2024 by [facility] Previously he was seen by Dr. Tavares for c/o visual filed defect and underwent a CT of his brain that was neg for an acute infarct Microalbumin checked on: 11/19/2022 was: 8 Pt on an CAESAR inhibitor. Foot check risk of zero Pt reports compliance with Asa 81 mg po daily Plan: Continue current regimen He is no longer on Humalog Lispro per sliding scale Pt used it once and tells me he had a bad reaction Pt c/o that 1 hour after injecting the Humalog lispro he felt like his left side was painful and his fingers cramped up ? Unclear as to what happened. No more Humalog for now. Pt advised to: adhere to diabetic diet check your blood sugars regularly check your feet on a daily basis Follow up 4 months Assessment & Plan (01/20/2024 9:24 AM EST): Pt here for a /u. He is on a regimen of Tresiba 40 units sc q pm. Off Metformin due to CKD Hgb A1c : 6.6 from 6.4 Last Eye exam was last done on: 12/03/2023 by [facility]. Previously he was seen by Dr. Tavares for c/o visual filed defect and underwent a CT of his brain that was neg for an acute infarct Microalbumin checked on: 11/19/2022 was: 8 Pt on an CAESAR inhibitor. Foot check risk of zero Pt reports compliance with Asa 81 mg po daily Plan: Continue current regimen He is no longer on Humalog Lispro per sliding scale Pt used it once and tells me he had a bad reaction Pt c/o that 1 hour after injecting the Humalog lispro he felt like his left side was painful and his fingers cramped up ? Unclear as to what happened. No more Humalog for now. Pt advised to: adhere to diabetic diet check your blood sugars regularly check your feet on a daily basis Follow up 4 months Assessment & Plan (09/09/2023 11:02 AM EDT): Pt here for a short term f/u. Glucose today: average 106 He is on a regimen of Tresiba 40 units sc q pm Off Metformin due to CKD Hgb A1c 08/30/2023: 6.4 Last Eye exam was last done on: 09/05/2018 He was seen by Dr. Tavares for c/o visual filed defect and underwent a CT of his brain that was neg for an acute infarct Microalbumin checked on: 06/03/2021 was: 14 Pt on an CAESAR inhibitor. Foot check risk of zero Pt reports compliance with Asa 81 mg po daily Plan: Continue current regimen will consider an SGLT2 1 He is no longer on Humalog Lispro per sliding scale Pt used it once and tells me he had a bad reaction Pt c/o that 1 hour after injecting the Humalog lispro he felt like his left side was painful and his fingers cramped up ? Unclear as to what happened. No more Humalog for now. Pt advised to: adhere to diabetic diet check your blood sugars regularly check your feet on a daily basis Follow up 3 months Assessment & Plan (08/30/2023 2:19 PM EDT): Assessment: - At goal of A1c less than 7% and fasting BG between 70-130 mg/dL per ADA guidelines. - On ASA: Y - On Statin: Y Atorvastatin 40mg daily - Last Eye Exam: upcoming 11/11/23 - Last Dental Exam: unknown Plan/ Recommendations: - Continue with current therapy and monitoring. No F/U needed at this time. Monitoring: Appointment on 08/30/2023 Component Date Value Ref Range Status Hemoglobin A1C 08/30/2023 6.4 4.0 - 8.0 % Final QC Media Lot # 08/30/2023 [id number] Final Lot# Expiration Date 08/30/2023 [id number] Final Office Visit on 05/04/2023 Component Date Value Ref Range Status Glucose Blood, POC 05/04/2023 194 60 - 200 mg/dL Final QC Media Lot # 05/04/2023 [id number] Final Lot# Expiration Date 05/04/2023 [id number] Final LDL Cholesterol (mg/dL (calc)) Date Value 01/14/2022 56 HDL Cholesterol (mg/dL) Date Value 01/14/2022 56 No results found for: B12 Assessment & Plan (05/04/2023 9:12 AM EST): Pt here for a short term f/u. Saw tres 2 weeks ago with uncontrolled DM Glucose today: average 117 He is on a regimen of Levemir 40 units sc q pm Off Metformin due to CKD Hgb A1c 04/13/2023: 11.6 Last Eye exam was last done on: 09/05/2018 He was seen by Dr. Tavares for c/o visual filed defect and underwent a CT of his brain that was neg for an acute infarct Microalbumin checked on: 06/03/2021 was: 14 Pt on an CAESAR inhibitor. Foot check risk of zero Pt reports compliance with Asa 81 mg po daily Plan: Continue current regimen Once hgb A1c and hyperglicemia improved will consider an SGLT2 1 He is no longer on Humalog Lispro per sliding scale Pt used it once and tells me he had a bad reaction Pt c/o that 1 hour after injecting the Humalog lispro he felt like his left side was painful and his fingers cramped up ? Unclear as to what happened. No more Humalog for now. Pt advised to: adhere to diabetic diet check your blood sugars regularly check your feet on a daily basis Follow up 3 months Assessment & Plan (04/13/2023 9:40 AM EST): Pt here for a f/u DM doing well , reports Glucose today: 347 He is on a regimen of Levemir 30 units sc q pm Off Metformin due to CKD Hgb A1c 04/13/2023: 11.6 Last Eye exam was last done on: 09/05/2018 He was seen by Dr. Tavares for c/o visual filed defect and underwent a CT of his brain that was neg for an acute infarct Microalbumin checked on: 06/03/2021 was: 14 Pt on an CAESAR inhibitor. Foot check risk of zero Pt reports compliance with Asa 81 mg po daily Plan: Increase Levemir to 40 units qhs Once hgb A1c and hyperglicemia improved will consider an SGLT2 1 He is no longer on Humalog Lispro per sliding scale Pt used it once and tells me he had a bad reaction Pt c/o that 1 hour after injecting the Humalog lispro he felt like his left side was painful and his fingers cramped up ? Unclear as to what happened. No more Humalog for now. Pt advised to: adhere to diabetic diet check your blood sugars regularly check your feet on a daily basis Follow up 2 weeks Assessment & Plan (01/12/2023 9:49 AM EDT): Pt here for a f/u DM doing well , reports Glucometer shows average 111 He is on a regimen of Levemir 30 units sc q pm Off Metformin due to CKD Hgb A1c 01/12/2023: 7.4 Pt thinks he can lower his A1c below 7 by adhering to diabetic diet , wants to hold off on adjusting regimen Last Eye exam was last done on: 09/05/2018 He was seen by Dr. Tavares for c/o visual filed defect and underwent a CT of his brain that was neg for an acute infarct Microalbumin checked on: 06/03/2021 was: 14 Pt on an CAESAR inhibitor. Foot check risk of zero Pt reports compliance with Asa 81 mg po daily Plan: Continue current regimen He is no longer on Humalog Lispro per sliding scale Pt used it once and tells me he had a bad reaction Pt c/o that 1 hour after injecting the Humalog lispro he felt like his left side was painful and his fingers cramped up ? Unclear as to what happened. No more Humalog for now. Pt advised to: adhere to diabetic diet check your blood sugars regularly check your feet on a daily basis Assessment & Plan (10/01/2022 9:26 AM EDT): Pt here for a f/u DM doing well , reports Glucometer shows average 108 He is on a regimen of Levemir 30 units sc q pm Off Metformin due to CKD Hgb A1c 06/02/2022 was: 6.4 Last Eye exam was last done on: 09/05/2018 He was seen by Dr. Tavares for c/o visual filed defect and underwent a CT of his brain that was neg for an acute infarct Microalbumin checked on: 06/03/2021 was: 14 Pt on an CAESAR inhibitor. Foot check risk of zero Pt reports compliance with Asa 81 mg po daily Plan: Continue current regimen He is no longer on Humalog Lispro per sliding scale Pt used it once and tells me he had a bad reaction Pt c/o that 1 hour after injecting the Humalog lispro he felt like his left side was painful and his fingers cramped up ? Unclear as to what happened. No more Humalog for now. Pt advised to: adhere to diabetic diet check your blood sugars regularly check your feet on a daily basis Assessment & Plan (06/02/2022 10:12 AM EDT): Pt here for a f/u DM doing well , reports Glucometer shows average 108 He is on a regimen of Levemir 30 units sc q pm Off Metformin due to CKD Hgb A1c 06/02/2022 was: 6.4 Last Eye exam was last done on: 09/05/2018 He was seen by Dr. Tavares for c/o visual filed defect and underwent a CT of his brain that was neg for an acute infarct Microalbumin checked on: 06/03/2021 was: 14 Pt on an CAESAR inhibitor. Foot check risk of zero Pt reports compliance with Asa 81 mg po daily Plan: Continue current regimen He is no longer on Humalog Lispro per sliding scale Pt used it once and tells me he had a bad reaction Pt c/o that 1 hour after injecting the Humalog lispro he felt like his left side was painful and his fingers cramped up ? Unclear as to what happened. No more Humalog for now. Pt advised to: adhere to diabetic diet check your blood sugars regularly check your feet on a daily basis Type 2 diabetes mellitus with peripheral angiopa thy 09/04/2020 Stage 3b chronic kidney disease 03/29/2018 Assessment & Plan (05/25/2024 9:52 AM EDT): Under the care of Nephrology. Last seen 03/13/2024 recommended 6 month follow up Assessment & Plan (01/20/2024 9:01 AM EST): Under the care of Nephrology. Last seen 09/07/2023 Assessment & Plan (09/09/2023 11:01 AM EDT): Under the care of Nephrology. Last seen 09/07/2023 Assessment & Plan (01/12/2023 8:43 AM EDT): Under the care of Nephrology. Last seen 11/19/2022 Assessment & Plan (06/02/2022 10:31 AM EDT): Under the care of Nephrology Kidney stone 12/03/2015 Assessment & Plan (06/02/2022 10:36 AM EDT): Under the care of Dr Abrams Benign prostatic hyperplasia 12/14/2013 Assessment & Plan (05/25/2024 10:00 AM EDT): Pt with intermittent c/o difficulty urinating, previous HEMANTH August 25 2007 was wnl. He declined HEMANTH last visit Bladder US had shown an enlarged prostate. Pt was finally seen for an episode of gross hematuria at [facility] on 09/2013 that pt states was due to a traumatic Sanchez insertion while in the Hospital. Pt went once to see the Doctor but did not follow through with f/u appointments. He denies any further hematuria episodes.Last UA was neg for blood Pt refuses to go through the Urology work up (cystoscopy) He verbalizes understanding that by doing this he is putting himself at risk of serious or even potentially deadly conditions such as renal or bladder malignancy Last PSA checked on 02/16/2024 was 1.03 Assessment & Plan (06/02/2022 10:37 AM EDT): Pt with intermittent c/o difficulty urinating, previous HEMANTH August 25 2007 was wnl. He declined HEMANTH last visit Last PSA checked on 09/27/2013 was 3.77 Bladder US had shown an enlarged prostate. Pt was finally seen for an episode of gross hematuria at [facility] on 09/2013 that pt states was due to a traumatic Sanchez insertion while in the Hospital. Pt went once to see the Doctor but did not follow through with f/u appointments. 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 Myocardial perfusion imaging showed mildly reversible chest wall defect consistent with prior OR. He had question of AV block/pause so metoprolol was decreased from 100mg BID to 50mg BID. In the past he saw Dr layne (milling supervisor) at [facility] and underwent a cardiac cath done on 10/[address]. [address] Layne's last note from 11/09/2012 cardiac cath showed occluded left circumflex in the midsegment, but well collateralization from LAD and distal right coronary artery. The mid RCA stent was widely patent with only mild in stent restenosis. He thought that from the cardiac point of view he was stable. ECHO 01/2023 showed: Conclusions: - 1. Normal LV systolic function with LVEF of 60 65% with sudden normal filling pattern 2. Mildly dilated left atrium 3. Normal cardiac valvular Dopplers 4. Mildly dilated ascending aorta 3.9 cm 5. No gross pericardial effusion Pt is under the care of Dr. holley , last note 06/08/2022. Pt tells me he was seen in February of lat year and showed me a card with an appointment for June 12 2024 Assessment & Plan (04/13/2023 9:31 AM EST): Pt has CAD, s/p OR with CLIP WRAPPER in the past (last in 2007 with stent in 2001). 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 Myocardial perfusion imaging showed mildly reversible chest wall defect consistent with prior OR. He had question of AV block/pause so metoprolol was decreased from 100mg BID to 50mg BID. In the past he saw Dr layne (milling supervisor) at [facility] and underwent a cardiac cath done on 10/[address]. [address] Layne's last note from 11/09/2012 cardiac cath showed occluded left circumflex in the midsegment, but well collateralization from LAD and distal right coronary artery. The mid RCA stent was widely patent with only mild in stent restenosis. He thought that from the cardiac point of view he was stable. Pt is now under the care of Dr. holley who he last saw 06/08/2022 ECHO 01/2023 showed: Conclusions: - 1. Normal LV systolic function with LVEF of 60 65% with sudden normal filling pattern 2. Mildly dilated left atrium 3. Normal cardiac valvular Dopplers 4. Mildly dilated ascending aorta 3.9 cm 5. No gross pericardial effusion Assessment & Plan (01/12/2023 9:47 AM EDT): Pt has CAD, s/p OR with CLIP WRAPPER in the past (last in 2007 with stent in 2001). 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 Myocardial perfusion imaging showed mildly reversible chest wall defect consistent with prior OR. He had question of AV block/pause so metoprolol was decreased from 100mg BID to 50mg BID. In the past he saw Dr layne (milling supervisor) at [facility] and underwent a cardiac cath done on 10/[address]. [address] Layne's last note from 11/09/2012 cardiac cath showed occluded left circumflex in the midsegment, but well collateralization from LAD and distal right coronary artery. The mid RCA stent was widely patent with only mild in stent restenosis. He thought that from the cardiac point of view he was stable. Pt is now under the care of Dr. holley who he last saw 06/08/2022 Assessment & Plan (06/02/2022 10:25 AM EDT): Pt has CAD, s/p OR with [employer] in the past (last in 2007 with stent in 2001). 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 Myocardial perfusion imaging showed mildly reversible chest wall defect consistent with prior OR. He had question of AV block/pause so metoprolol was decreased from 100mg BID to 50mg BID. In the past he saw Dr layne (milling supervisor) at [facility] and underwent a cardiac cath done on 10/[address]. [address] Layne's last note from 11/09/2012 cardiac cath showed occluded left circumflex in the midsegment, but well collateralization from LAD and distal right coronary artery. The mid RCA stent was widely patent with only mild in stent restenosis. He thought that from the cardiac point of view he was stable. Pt is now under the care of Dr. holley who he last saw 12/08/2021 Has a follow up 06/08/2022 Depressive disorder 11/09/2011 History of alcoholism 11/09/2011 Assessment & Plan (05/04/2023 8:48 AM EST): Continues to be sober for many years Assessment & Plan (10/01/2022 9:27 AM EDT): Sober for many years Peripheral vascular disease 11/09/2011 Assessment & Plan (01/20/2024 8:52 AM EST): Pt here for follow up. Pt with generalized atherosclerotic vascular disease. Used to be under the care of Na Mcfarland NP/Dr Rodríguez at [facility] Vascular surgery (vascular surgeon), Last note from 09/03/2017 Pt is s/p left superficial femoral artery stenting and a previous Right Carotid endarterectomy with c/o persistent left calve claudication he mention that back. He is now under the care of Dr Dmo Cabello, last seen 10/30/2023. He mentioned he had stable claudication and recommended 1 year follow up Assessment & Plan (04/13/2023 9:27 AM EST): Pt with generalized atherosclerotic vascular disease. Used to be under the care of Na Mcfarland NP/Dr Rodríguez at [facility] Vascular surgery (vascular surgeon), Last note from 09/03/2017 Pt is s/p left superficial femoral artery stenting and a previous Right Carotid endarterectomy with c/o persistent left calve claudication he mention that back He recommended 1 year f/u. He is now under the care of Dr Dom Cabello, last seen 03/2023. He mentioned he had stable claudication and recommended 6 month follow up Assessment & Plan (01/12/2023 9:50 AM EDT): Pt with generalized atherosclerotic vascular disease. Used to be under the care of Na Mcfarland NP/Dr Rodríguez at [facility] Vascular surgery (vascular surgeon), Last note from 09/03/2017 Pt is s/p left superficial femoral artery stenting and a previous Right Carotid endarterectomy with c/o persistent left calve claudication he mention that back He recommended 1 year f/u. He is now under the care of Dr Dom Cabello, last seen 07/2021. We contacted his office they told us he missed his follow up they want him to have repeat vascular studies before they can see him again, They will contact patient to schedule those for him Pt verbalized understanding Assessment & Plan (10/01/2022 9:34 AM EDT): Pt with generalized atherosclerotic vascular disease. Used to be under the care of Na Mcfarland NP/Dr Rodríguez at [facility] Vascular surgery (vascular surgeon), Last note from 09/03/2017 Pt is s/p left superficial femoral artery stenting and a previous Right Carotid endarterectomy with c/o persistent left calve claudication he mention that back He recommended 1 year f/u. He is now under the care of Dr Dom Cabello, last seen 07/2021 I prompted him to call for a follow up visit. Me he will Assessment & Plan (06/02/2022 10:34 AM EDT): Pt with generalized atherosclerotic vascular disease. Used to be under the care of Na Mcfarland NP/Dr Rodríguez at [facility] Vascular surgery (vascular surgeon), Last note from 09/03/2017 Pt is s/p left superficial femoral artery stenting and a previous Right Carotid endarterectomy with c/o persistent left calve claudication he mention that back He recommended 1 year f/u. He is now under the care of Dr Dom Cabello, last seen 07/2021 I prompted him to call for a follow up visit Subclavian artery stenosis 11/09/2011 Gout 08/14/2011 Assessment & Plan (01/12/2023 9:17 AM EDT): Used to be under the care of Rheumatology . Last seen 05/07/2014 pt is not a candidate for NSAIDS due to CKD, I prescribe Percocet PRN for this with good results. Pt has a narcotic contract with us. He does not abuse it. Assessment & Plan (06/02/2022 10:35 AM EDT): Used to be under the care of Rheumatology . Last seen 05/07/2014 pt is not a candidate for NSAIDS due to CKD, I prescribe Percocet PRN for this with good results. Pt has a narcotic contract with us. Hyperlipidemia 08/14/2011 Assessment & Plan (05/04/2023 8:12 AM EST): Patient with elevated lipids. Most recent lipid profile from: 03/2023 shows Component Ref Range & Units 3 wk ago 10 mo ago 1 yr ago 3 yr ago Triglycerides <150 mg/dL 150 High 94 R, CM 116 143 Comment: Desirable Triglyceride: less than 150 mg/dLBorderline High Triglyceride 150-199 mg/dLHigh Triglyceride: 200-499 mg/dLVery High Triglyceride: greater than or equal to 5OO mg/dL Cholesterol <200 mg/dL 106 130 R, CM Comment: Desirable Cholesterol: less than 200 mg/dLBorderline High Cholesterol: 200-239 mg/dLHigh Cholesterol: greater than 239 mg/dL LDL Cholesterol Calculated <100 mg/dL 32 61 R, CM Comment: Desirable LDL: less than 100 mg/dLNear Optimal/Above Optimal LDL: 110- 129 mg/dLBorderline High LDL: 130-159 mg/dLHigh LDL: 160-189 mg/dLVery High LDL: greater than or equal to 190 mg/dL HDL Cholesterol >40 mg/dL 44 51 R, CM 56 R 43 R Currently on a regimen of Atorvastatin 40mg po qhs (switched by milling supervisor and Fish oil 1000mg po TID. For now will continue with current regimen. advised to try to adhere to a low cholesterol diet, counseled and educated about diet and exercise, Patient encouraged to come up with a personal goal for weight loss. Assessment & Plan (04/13/2023 9:30 AM EST): Patient with elevated lipids. Most recent lipid profile from: 01/14/2022 shows a total cholesterol of: 132 triglycerides of: 116 HDL of: 56 and LDL of: 56 Currently on a regimen of Atorvastatin 40mg po qhs (switched by milling supervisor and Fish oil 1000mg po TID. For now will continue with current regimen, will repeat Lipid profile advised to try to adhere to a low cholesterol diet, counseled and educated about diet and exercise, Patient encouraged to come up with a personal goal for weight loss. Assessment & Plan (06/02/2022 10:14 AM EDT): Patient with elevated lipids. Most recent lipid profile from: 01/14/2022 shows a total cholesterol of: 132 triglycerides of: 116 HDL of: 56 and LDL of: 56 Currently on a regimen of Atorvastatin 40mg po qhs (switched by milling supervisor and Fish oil 1000mg po TID. For now will continue with current regimen advised to try to adhere to a low cholesterol diet, counseled and educated about diet and exercise, Patient encouraged to come up with a personal goal for weight loss. Plantar fasciitis 08/14/2011 Hypertension 08/14/2011 Assessment & Plan (05/25/2024 9:55 AM EDT): Patient is here for a f/u BP remains controlled He is on a regimen of: Norvasc 10 mg po daily, Metoprolol 50 mg po BID, Aldactone 25 mg po daily, Off HCTZ OFF Cozaar. and OFF Lisinopril Dr Estrada warned him about the use of diuretics that could exacerbate his gout. Plan: Will continue with current medical regimen. Most recent , Creatinine done on: Lab Results Component Value Date NA 144 02/16/2024 NA 145 02/09/2024 K 3.9 02/16/2024 K 4.4 02/09/2024 CL 108 02/16/2024 CL 105 02/09/2024 BUN 19 (H) 02/16/2024 BUN 14 02/09/2024 CREATININE 1.63 (H) 02/16/2024 CREATININE 1.60 (H) 02/09/2024 patient advised to adhere to a low sodium diet, encouraged about medication compliance. Assessment & Plan (01/20/2024 8:54 AM EST): Patient is here for a f/u BP remains controlled He is on a regimen of: Norvasc 10 mg po daily, Metoprolol 50 mg po BID, Aldactone 25 mg po daily, Off HCTZ OFF Cozaar. and OFF Lisinopril Dr Estrada warned him about the use of diuretics that could exacerbate his gout. Plan: Will continue with current medical regimen. Most recent , Creatinine done on: 11/19/2022 were within normal limits. Will repeat patient advised to adhere to a low sodium diet, encouraged about medication compliance. Assessment & Plan (09/09/2023 11:00 AM EDT): Patient is here for a f/u BP remains controlled He is on a regimen of: Norvasc 10 mg po daily, Metoprolol 50 mg po BID, Aldactone 25 mg po daily, Off HCTZ OFF Cozaar. and OFF Lisinopril Dr Estrada warned him about the use of diuretics that could exacerbate his gout. Plan: will continue with current medical regimen. Most recent , Creatinine done on: 11/19/2022 were within normal limits. Will repeat patient advised to adhere to a low sodium diet, encouraged about medication compliance. Assessment & Plan (04/13/2023 9:28 AM EST): Patient is here for a f/u BP remains controlled He is on a regimen of: Norvasc 10 mg po daily, Metoprolol 50 mg po BID, Aldactone 25 mg po daily, Off HCTZ OFF Cozaar. and OFF Lisinopril Dr Estrada warned him about the use of diuretics that could exacerbate his gout. Plan: will continue with current medical regimen. Most recent , Creatinine done on: 11/19/2022 were within normal limits patient advised to adhere to a low sodium diet, encouraged about medication compliance. Assessment & Plan (01/12/2023 8:42 AM EDT): Patient is here for a f/u BP remains controlled He is on a regimen of: Norvasc 10 mg po daily, Metoprolol 50 mg po BID, Aldactone 25 mg po daily, Off HCTZ OFF Cozaar. and OFF Lisinopril Dr Estrada warned him about the use of diuretics that could exacerbate his gout. Plan: will continue with current medical regimen. Most recent , Creatinine done on: 11/19/2022 were within normal limits patient advised to adhere to a low sodium diet, encouraged about medication compliance. Assessment & Plan (10/01/2022 9:25 AM EDT): Patient is here for a f/u BP remains controlled He is on a regimen of: Norvasc 10 mg po daily, Metoprolol 50 mg po BID, Aldactone 25 mg po daily, Off HCTZ OFF Cozaar. and OFF Lisinopril Dr Estrada warned him about the use of diuretics that could exacerbate his gout. Plan: will continue with current medical regimen. Most recent , Creatinine done on: 04/07/2022 showed an elevated Cr. 1.73 done by Nephrology. Will repeat patient advised to adhere to a low sodium diet, encouraged about medication compliance. Assessment & Plan (06/02/2022 10:13 AM EDT): Patient here for a f/u BP controlled He is on a regimen of: Norvasc 10 mg po daily, Metoprolol 50 mg po BID, Aldactone 25 mg po daily, Off HCTZ OFF Cozaar. and OFF Lisinopril Dr Estrada warned him about the use of diuretics that could exacerbate his gout. Plan: will continue with current medical regimen. Most recent , Creatinine done on: 04/07/2022 showed an elevated Cr. 1.73 done by Nephrology patient advised to adhere to a low sodium diet, encouraged about medication compliance. Encounters Date Type Department Care Team Description 06/15/2024 Refill [facility] [address] [place] [address] Nikunj Gaviria MD 06/07/2024 Telephone [place] [employer] [address] [place] [address] ABDOMEN ORDER 06/06/2024 Refill [facility] [address] [place] [address] Nikunj Gaviria MD Primary insomnia 06/05/2024 11:00 AM EDT Telemedicine [facility] [address] [place] [address] Abigail Lora, RN Long-term current use of opiate analgesic 06/05/2024 Refill [facility] [address] [place] [address] Abigail Lora RN Pain 06/05/2024 Travel 06/05/2024 Telephone [facility] [address] [facility] [place] [address] Nikunj Gaviria MD Med Refill 05/26/2024 Population Health Risk Score [facility] ([facility]) [address] [phone] Provider, Population Health Generic 05/25/2024 10:00 AM EDT Office Visit [facility] [address] [facility] [place] [address] Nikunj Gaviria MD Type 2 diabetes mellitus with stage 3a chronic kidney disease, with long-term current use of insulin (CMS/HCC) (Primary Dx); Right lower quadrant abdominal pain; Stage 3b chronic kidney disease (CMS/HCC); Type 2 diabetes mellitus with peripheral angiopathy (CMS/HCC); Primary hypertension; Primary insomnia; Atherosclerosis of platinum coronary artery of platinum heart without angina pectoris; Benign prostatic hyperplasia with urinary frequency; Colon cancer screening; Preventative health care 05/25/2024 Travel 05/15/2024 Patient Outreach [facility] [address] [facility] [place] [address] Nikunj Gaviria MD Pre-visit Planning (SDOH Screening negative and Tobacco screening negative) 05/12/2024 10:00 AM EST Office Visit [facility] [address] [place] [address] Lang, Jennifer, OD Open angle with borderline findings and low glaucoma risk in both eyes (Primary Dx); History of CVA in adulthood 05/12/2024 Travel 05/11/2024 Telephone [facility] [address] [facility] [place] [address] Nikunj Gaviria MD Chart Prep 05/10/2024 Refill [facility] [address] [facility] [place] [address] Nikunj Gaviria MD Primary insomnia 05/08/2024 Refill [facility] [address] [facility] [place] [address] Nikunj Gaviria MD Type 2 diabetes mellitus with stage 3 chronic kidney disease, with long-term current use of insulin, unspecified whether stage 3a or 3b CKD ([facility]) 05/06/2024 Refill [facility] [address] [place] [address] Joan Coreas MD Type 2 diabetes mellitus with stage 3 chronic kidney disease, with long-term current use of insulin, unspecified whether stage 3a or 3b CKD ([facility]) 05/05/2024 Refill [facility] [address] [place] [address] Nikunj Gaviria MD Pain 04/15/2024 Refill [facility] [address] [place] [address] Nikunj Gaviria MD Essential hypertension 04/15/2024 Refill [facility] [address] [place] [address] [facility] Primary hypertension; Essential hypertension 04/14/2024 Refill [facility] [address] [place] [address] Nikunj Gaviria MD Primary insomnia 04/05/2024 Telephone [facility] [address] [place] [address] Nikunj Gaviria MD Med Refill from Last 3 Months Immunizations Name Administration Dates Next Due Influenza High-dose Quadriva lent Preservative Free 01/12/2023,01/13/2022 Influenza injectable quadriv alent IIV4 with preservative 02/01/2018 Influenza injectable quadriv alent preservative free 01/05/2019,04/11/2015 Influenza, High Dose Seasona l, Preservative Free 01/20/2024 Influenza, IIV3, injectable 01/13/2022, 4,12/15/2006 Influenza, Split (incl. jarett fied surface antigen) 03/22/2013,04/14/2012 Influenza, Unspecified 12/14/2013,12/15/2006 Moderna Covid-19 Vaccine 12+ 02/19/2021,05/31/19 21,05/02/2020 Pneumococcal Conjugate PCV 13 08/01/2015 Pneumococcal Polysaccharide PPSV23 08/09/2002 TD (adult), 2 Lf tetanus tox oid, preservative free, adsorbed 10/28/2021,08/09/2002 Tdap 02/11/2012 Zoster, live 08/01/2015 Social History Tobacco Use Types Packs/Day Years Used Date Smoking Tobacco: Never Passive Smoke Exposure: Never Smokeless Tobacco: Never Tobacco Cessation:Counseling Given: Not Answered Depression Answer Date Recorded Patient Health Questionnaire-9 Score 0 09/09/2023 Patient Health Questionnaire-9 Score 0 09/09/2023 Last PHQ-9: Questionnaire Data Not on file 0 09/09/2023 Housing Stability Answer Date Recorded What is your housing situation today? I have serena luiz 09/09/[address] you li [...] Orientation Straight 01/12/2022 10 :14 AM EDT Last Filed Vital Signs Vital Sign Reading Time Taken Comments Blood Pressure 142/62 05/25/2024 9:57 AM EDT Pulse 64 05/25/2024 9:57 AM EDT Temperature 36.2 ??C (97.2 ??F) 05/25/2024 9:57 AM ED T Respiratory Rate 18 05/25/2024 9:57 AM EDT Oxygen Saturation 97% 05/25/2024 9:57 AM EDT Inhaled Oxygen Concentration - - Weight 99.3 kg (219 lb) 05/25/2024 9:57 AM EDT Height 175.3 cm (5' 9 ) 05/25/2024 9:57 AM EDT Body Mass Index 32.34 05/25/2024 9:57 AM EDT Plan of Treatment Upcoming Encounters Date Type Department Care Team (Late st Contact Info) Description 08/28/2024 11:00 AM EDT Telemedicine [facility]S [address] [place] [address] Abigail Lora, RAFAEL [address] [place] [address] 08/29/2024 10:15 AM EDT Office Visit [facility] [address] [place] [address] Nikunj Gaviria MD [address] [place] [address] 11/10/2024 10:00 AM EDT Office Visit [facility] [address] [place] [address] Lang, Jennifer, OD [address] [place] [address] Health Maintenance Due Date Last Done Comments Diabetes: Foot Exam 1960 Zoster Vaccines (2 of 3) 09/26/2015 08/01/2015 Pneumococcal Vaccine: 50+ Years (3 of 3 - PCV20 or PCV21) 07/31/2020 08/01/2015, 08/09/2002 RSV Patients and Patients Aged 60 years or older (1 - 1-dose 75+ series) 06/10/2023 COVID-19 Vaccine ( - season) 2023 02/19/2021, 05/30/2020, 05/02/2020 Depression Screening 09/08/2024 09/09/2023, 09/09/19 24 Eye Exam 11/10/2024 11/11/2023, 10/14, 11/11/2023, Additional history exists Diabetes: Hemoglobin A1C 11/25/2024 025, 01/20/2024, 09/09/2023, Additional history exists Alcohol/Substance Use Screening 01/19/2025 01/20/2024 Lipid Panel 02/08/2025 02/09/2024, 03/17, 06/16/2022, Additional history exists SDOH Screening 05/15/2025 05/15/2024 Tobacco Screening 05/25/2025 05/25/2024 DTaP/Tdap/Td Vaccines (3 - Td or Tdap) 10/29/2031 10/28/2021, 02/11/2012, 08/09/2002 Hepatitis C Screening Completed 01/14/2022 Influenza Vaccine Completed 01/20/2024, , 01/13/2022, Additional history exists HIB Vaccines Aged Out No longer eligi ble based on patient's age to complete this topic HPV Vaccines Aged Out No longer eligi ble based on patient's age to complete this topic Hepatitis A Vaccines Aged Out No long er eligible based on patient's age to complete this topic Hepatitis B Vaccines Aged Out No long er eligible based on patient's age to complete this topic IPV Vaccines Aged Out No longer eligi ble based on patient's age to complete this topic Meningococcal Vaccine Aged Out No kuldeep evelyn eligible based on patient's age to complete this topic RSV under 20 months Aged Out No longe r eligible based on patient's age to complete this topic Rotavirus Vaccines Aged Out No longer eligible based on patient's age to complete this topic Goals Goal Patient Goal Type Associated Problems Recent Progress Patient-Stated? Author Keep fasting blood glucose between 70 and 130 Result Component Type 2 diabetes mellitus with diabetic chronic kidney disease On track(08/30/19 2:19 PM EDT) No Dixie Adrian, Judy Procedures Procedure Name Priority Date/Time Associated Diagnosis Comments POCT GLYCATED HEMOGLOBIN, TOTAL Routine 05/25/2024 10:18 AM EDT Type 2 diabetes mellitus with stage 3a chronic kidney disease, with long-term current use of insulin ([facility]) POCT GLUCOSE Routine 05/25/2024 10:18 AM EDT Type 2 diabetes mellitus with stage 3a chronic kidney disease, with long-term current use of insulin (CMS/HCC) AUTOMATED VISUAL FIELD, EXTENDED - OU - BOTH EYES Routine 05/12/2024 10:00 AM EST Open angle with borderline findings and low glaucoma risk in both eyes LIPID PANEL, STANDARD Routine 02/09/2024 9:14 AM EST Type 2 diabetes mellitus with peripheral angiopathy (CMS/HCC) ZZZ HISTORICAL HEPATITIS C AB W/REFL TO HCV RNA, QN, PCR Routine 01/14/2022 8:39 AM EDT from Last 3 Months or Most Recently Relevant to Health Maintenance Results * (ABNORMAL) POCT HGB A1C (05/25/2024 10:18 AM EDT) Hemoglobin A1C 6.4(A) 4.0 - 6.0 % QC Media Lot # [id number] Lot# Expiration Date , Blood 05/25/2024 10:1 8 AM EDT us Nikunj Wright MD POINT OF CARE TEST EN TER/EDIT ORDERABLES Final Result * POCT Glucose (05/25/2024 10:18 AM EDT) Glucose Blood, POC 127 60 - 200 mg/dL QC Media Lot # [id number] Lot# Expiration Date 021,320 Blood Capillary blood specimen / Unknown 05/25/2024 10:18 AM EDT us Nikunj Wright MD POINT OF CARE TEST EN TER/EDIT ORDERABLES Final Result * Automated Visual Field, Extended - OU - Both Eyes (05/12/2024 10:00 AM EST) Narrative Jennifer Croft, OD - 05/15/2024 3:08 PM EST VISUAL FIELD INTERPRETATION Visual Field Interpretation Test Details: Octopus G P Pulsar/200/TOP Reliability Indices: False positive errors OD: 1/7 OS: 0/7 False negative errors OD: 0/7 OS: 1/8 Statistical Indices: MS [src]: OD: 15.3 OS: 16.8 MD [< 2.0 src]: OD: 5.7 OS: 4.3 sLV [< 2.5 src]: OD: 3.5 OS: 3.3 Impression: Reason for testing: 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 Test Reliability: Good reliability in both eyes. Low false negatives/positives Impression: Right eye (OD): Dense superior nasal defect Left eye (OS): Dense superior temporal defect Progression: No other tests available for comparison Management Plan: Left incomplete superior quadrantanopsia. The patient has a history of a CVA (chronic infarct at the junction of the right temporal and occipital lobes since 2007 with chronic left thalamic and left cerebellar lacunar infarcts. No suspicion of glaucoma at this time. Will have the patient return in 6 months for a complete eye exam. us Jennifer Croft OD OPHTH VISUAL FIELD Final Resu lt * (ABNORMAL) Lipid Panel, Standard (02/09/2024 9:14 AM EST) Triglycerides 107 <150 mg/dL [facility] Comment:Desirable Triglyceri de: less than 150 mg/dLBorderline High Triglyceride 150-199 mg/dLHigh Triglyceride: 200-499 mg/dLVery High Triglyceride: greater than or equal to 5OO mg/dL Cholesterol 95 <200 mg/dL [facility] Comment:Desirable Cholestero l: less than 200 mg/dLBorderline High Cholesterol: 200-239 mg/dLHigh Cholesterol: greater than 239 mg/dL LDL Cholesterol Calculated 35 <100 mg/dL [facility] Comment:Desirable LDL: less than 100 mg/dLNear Optimal/Above Optimal LDL: 110- 129 mg/dLBorderline High LDL: 130-159 mg/dLHigh LDL: 160-189 mg/dLVery High LDL: greater than or equal to 190 mg/dL HDL Cholesterol 39(L) >40 mg/dL [facility] Comment:Desirable HDL: great er than 40 mg/dL Note: This HDL assay may give artificially low results in patients with liver disease. Blood Venous blood specimen / Unknown 02/09/2024 9:14 AM EST 02/09/2024 11:17 AM EST Nikunj Wright MD LAB BLOOD ORDERABLES Final Result [facility] [address] [place] [phone] * HEPATITIS C AB W/REFL TO HCV RNA, QN, PCR (01/14/2022 8:39 AM EDT) HEPATITIS C ANTIBODY NON-REACTI VE NON-REACT [facility] CONVERTED LEGACY LABS INDEX 0.07 <1.00 CONVERTED LEGACY LABS Comment: ?? HCV antibody was non-reactive. There is no laboratory ?? evidence of HCV infection. ?? In most cases, no further action is required. However, if recent HCV exposure is suspected, a test for HCV RNA (test code 23711) is suggested. ?? For additional information please refer to http://education.[employer]/faq/NAI52w0 (This link is being provided for informational/ educational purposes only.) ?? 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
--- OUTSIDE RECORDS SUMMARY | 2024-06-27 07:49 | XMS_ITS | Encounter Summary ---
Author Organization [facility] Address [address] [facility] 7t [place] [address] Care Team Providers Care Wood Heel Cementer Name Role Phone Nikunj Gaviria MD Primary Care Provide r Dixie Adrian PharmD Unavailable [phone] Roberto Estrada MD Unavailable [phone] Reason for Visit * Reason Onset Date Comments Med Refill 12/10/2022 Encounter Details Date Type Department Care Team (Late st Contact Info) Description 12/10/2022 Telephone [facility] MEDICINE [address] [place] [address] Nikunj Gaviria MD 230 [place], [place] [phone] Med Refill Social History Tobacco Use Types Packs/Day Years Used Date Smoking Tobacco: Never Passive Smoke Exposure: Never Smokeless Tobacco: Never Depression Answer Date Recorded Patient Health Questionnaire-9 Score 0 06/02/2022 Depression Answer Date Recorded Patient Health Questionnaire-2 Score 0 06/02/2022 Sex and Gender Information Value Date Recorded Sex Assigned at Male 01/12/2022 10:14 AM EDT Legal Sex Male 10:14 AM EDT Gender Identity Male 01/12/2022 10:14 AM EDT Sexual Orientation Straight 01/12/2022 10 :14 AM EDT documented as of this encounter Miscellaneous Notes * Telephone Encounter - Veronica Mosley - 12/10/2022 10:08 AM EDT Tc from patient requesting a med refill for medication oxycodone [address] Jacobs documented in this encounter Plan of Treatment Upcoming Encounters Date Type Department Care Team (Late st Contact Info) Description 08/28/2024 11:00 AM EDT Telemedicine [facility] CHC MED & PEDS 505 [place] [address] Abigail Lora, RN 505 [place], [place] [phone] 08/29/2024 10:15 AM EDT Office Visit [facility] MEDICINE [address] [place] [address] Nikunj Gaviria MD 230 [place] [address] 11/10/2024 10:00 AM EDT Office Visit [facility] OPTOMETRY [address] [place] [address] LangJennifer lackey, OD 230 [place] [address] documented as of this encounter Visit Diagnoses Not on filedocumented in this encounter Additional Health Concerns Assessment Noted Time PHQ-9 Depression Total Score: 0 06/03/19 23 10:07 AM EDT documented as of this encounter Care Teams Wood Heel Cementer Relationship Specialty Start Date End Date Nikunj Gaviria MD 230 [place] [address] PCP - General Internal Medicine 10/30/13 Dixie Adrian, HarshilD 230 [place] [address] Pharmacist Internal Medicine 08/30/23 Roberto Estrada MD [address] [place] [address] [place] [address] Nephrology 02/18/24 documented as of this encounter
--- OUTSIDE RECORDS SUMMARY | 2024-06-27 07:49 | XMS_ITS | Encounter Summary ---
Author Organization [employer] Address [address] [facility] [address] 7t [place] [address] Care Team Providers Care Supervisor Record Press Name Role Phone Nikunj Gaviria MD Primary Care Provide r Dixie Adrian PharmD Unavailable [phone] Roberto Estrada MD Unavailable [phone] Reason for Visit * Reason Onset Date Comments Referral 05/04/2023 Encounter Details Date Type Department Care Team ([facility] st Contact Info) Description 05/04/2023 Telephone [facility] MEDICINE 230 [place] [address] Nikunj Gaviria MD [address] [place], [place] [phone] Referral Social History Tobacco Use Types Packs/Day Years [...] * Telephone Encounter - Otilio Agarwal - 05/04/2023 10:55 AM EST TC from spouse requesting new DATE: N/A TIME: N/A Location: [address] [place] [address] [facility] Type of Specialist: opthalmology If any questions please contact spouse at [phone]. documented in this encounter Plan of Treatment Upcoming Encounters Date Type Department Care Team ([facility] st Contact Info) Description 08/28/2024 11:00 AM EDT Telemedicine [facility] CHC MED & PEDS [address] [place] [address] Abigail Lora, RAFAEL 505 [place] [address] 08/29/2024 10:15 AM EDT Office Visit [facility] MEDICINE 230 [place] [address] Nikunj Gaviria MD 230 [place] [address] 11/10/2024 10:00 AM EDT Office Visit [facility] OPTOMETRY [address] [place] [address] Jennifer Croft, MATT 230 [place] [address] documented as of this encounter Visit Diagnoses Diagnosis Primary hypertension Unspecified essential hypertension Type 2 diabetes mellitus with peripheral angiopathy (CMS/HCC) Routine eye exam Examination of eyes and vision documented in this encounter Additional Health Concerns Assessment Noted Time PHQ-9 Depression Total Score: 0 06/03/19 23 10:07 AM EDT documented as of this encounter Care Teams Supervisor Record Press Relationship Specialty Start Date End Date Nikunj Gaviria MD [address] [place] [address] PCP - General Internal Medicine 10/30/13 Dixie Adrian PharmD [address] [place] [address] Pharmacist Internal Medicine 08/30/23 Roberto Estrada MD 100 [facility] 200 [place] [address] Nephrology 02/18/24 documented as of this encounter
--- OUTSIDE RECORDS SUMMARY | 2024-06-27 07:49 | XMS_ITS | Encounter Summary ---
Author Organization [employer] Address [address] [facility] 7t [place] [address] Care Team Providers Care Statement Clerks Supervisor Name Role Phone Nikunj Gaviria MD Primary Care Provide r Dixie Adrian PharmD Unavailable [phone] Roberto Estrada MD Unavailable [phone] Reason for Visit * Reason Onset Date Comments Med Refill 06/05/2024 Encounter Details Date Type Department Care Team (Late st Contact Info) Description 06/05/2024 Telephone [facility] MEDICINE [address] [place] [address] Nikunj Gaviria MD [address] [place] [address] Med Refill Social History Tobacco Use Types [...] encounter Miscellaneous Notes * Telephone Encounter - Raven Valles - 06/05/2024 10:04 AM EDT TC from pt requesting medication refill. Medications needing refill : oxyCODONE-acetaminophen (Percocet) 5-325 MG tablet To be sent to: [facility] - [place], [place] - [address] [place] [address] documented in this encounter Plan of Treatment Upcoming Encounters Date Type Department Care Team ([facility] st Contact Info) Description 08/28/2024 11:00 AM EDT Telemedicine [facility] CHC MED & PEDS 505 [place] [address] Abigail Lora RN 505 [place] [address] 08/29/2024 10:15 AM EDT Office Visit [facility] MEDICINE 230 [place] [address] Nikunj Gaviria MD [address] [place] [address] 11/10/2024 10:00 AM EDT Office Visit [facility] OPTOMETRY [address] [place] [address] Jennifer Croft, OD 230 [place] [address] documented as of this encounter Goals Goal [...] documented as of this encounter Care Teams Statement Clerks Supervisor Relationship Specialty Start Date End Date Nikunj Gaviria MD [address] [place] [address] PCP - General Internal Medicine 10/30/13 Dixie Adrian, PharmD [address] [place] [address] Pharmacist Internal Medicine 08/30/23 Roberto Estrada MD 100 [facility] 200 [place] [address] Nephrology 02/18/24 documented as of this encounter
--- OUTSIDE RECORDS SUMMARY | 2024-06-27 07:49 | XMS_ITS | Encounter Summary ---
Author Organization [employer] Address [address] [facility] 7t [place] [address] Care Team Providers Care Land Agent Name Role Phone Nikunj Gaviria MD Primary Care Provide r Dixie Adrian PharmD Unavailable [phone] Roberto Estrada MD Unavailable [phone] Reason for Visit * Reason Onset Date Comments Med Refill 01/06/2024 Encounter Details Date Type Department Care Team (Late st Contact Info) Description 01/06/2024 Refill [facility] MEDICINE [address] [place] [address] Nikunj Gaviria MD 230 [place] [address] Pain Social History Tobacco Use Types Packs/Day Years [...] * Telephone Encounter - Otilio Agarwal - 01/06/2024 2:49 PM EDT TC from pt requesting medication refill. Medications needing refill: oxyCODONE-acetaminophen (Percocet) 5-325 MG tablet To be sent to: [facility] - [place], [place] - [address] [place] [address] documented in this encounter Plan of Treatment Upcoming Encounters Date Type Department Care Team ([facility] st Contact Info) Description 08/28/2024 11:00 AM EDT Telemedicine [facility] CHC MED & PEDS 505 [place] [address] Abigail Lora RN 505 [place] [address] 08/29/2024 10:15 AM EDT Office Visit [facility] MEDICINE [address] [place] [address] Nikunj Gaviria MD 230 [place] [address] 11/10/2024 10:00 AM EDT Office Visit [facility] OPTOMETRY [address] [place] [address] Jennifer Croft, OD 230 [place] [address] documented as of this encounter Goals Goal Patient Goal Type Associated Problems Recent Progress Patient-Stated? Author Keep fasting blood glucose between 70 and 130 Result Component Type 2 diabetes mellitus with diabetic chronic kidney disease On track(08/30/19 2:19 PM EDT) No Dixie Adrian, PharmD documented as of this encounter Visit Diagnoses Diagnosis Pain Generalized pain documented in this encounter Additional Health Concerns Assessment Noted Time PHQ-9 Depression Total Score: 0 09/09/19 11:04 AM EDT documented as of this encounter Care Teams Land Agent Relationship Specialty Start Date End Date Nikunj Gaviria MD 230 [place] [address] PCP - General Internal Medicine 10/30/13 Dixie Adrian, PharmD 230 [place] [address] Pharmacist Internal Medicine 08/30/23 Roberto Estrada MD 100 [facility] 200 [place] [address] Nephrology 02/18/24 documented as of this encounter
--- OUTSIDE RECORDS SUMMARY | 2024-06-27 07:49 | XMS_ITS | Encounter Summary ---
Author Organization [employer] Address 75 [facility] 7t [place] [address] Care Team Providers Care Calliope Player Name Role Phone Nikunj Gaviria MD Primary Care Provide r Dixie Adrian PharmD Unavailable [phone] Roberto Estrada MD Unavailable [phone] Reason for Visit * Reason Onset Date Comments Med Refill 11/09/2022 Encounter Details Date Type Department Care Team (Late st Contact Info) Description 11/09/2022 Telephone [facility] MEDICINE 230 [place] [address] Nikunj Gaviira MD 230 [place], [place] [phone] Med Refill Social History Tobacco Use Types [...] Miscellaneous Notes * Telephone Encounter - Lorraine Neno - 11/09/2022 9:37 AM EDT Tc from pt spouse requesting medication refill on oxyCODONE-acetaminophen (Percocet) 5-325 MG tablet documented in this encounter Plan of Treatment Upcoming Encounters Date Type Department Care Team (Late st Contact Info) Description 08/28/2024 11:00 AM EDT Telemedicine [facility] CHC MED & PEDS 505 [place] [address] Abigail Lora, RN 505 [place] [address] 08/29/2024 10:15 AM EDT Office Visit [facility] MEDICINE 230 [place] [address] Nikunj Gaviria MD 230 [place] [address] 11/10/2024 10:00 AM EDT Office Visit [facility] OPTOMETRY 267 [place] [address] Jennifer Croft, OD 230 [place] [address] documented as of this encounter Visit Diagnoses Not on filedocumented in this encounter Additional Health Concerns Assessment Noted Time PHQ-9 Depression Total Score: 0 06/03/19 23 10:07 AM EDT documented as of this encounter Care Teams Calliope Player Relationship Specialty Start Date End Date Nikunj Gaviria MD 230 [place] [address] PCP - General Internal Medicine 10/30/13 Dixie Adrian PharmD [address] [place] [address] Pharmacist Internal Medicine 08/30/23 Roberto Estrada MD [address] [place] [address] [place] [address] Nephrology 02/18/24 documented as of this encounter
--- OUTSIDE RECORDS SUMMARY | 2024-06-27 07:49 | XMS_ITS | Encounter Summary ---
Author Organization [employer] Address 75 [facility] 7t [place] [address] Care Team Providers Care Performance Consultant Name Role Phone iNkunj Gaviria MD Primary Care Provide r Dixie Adrian PharmD Unavailable [phone] Roberto Estrada MD Unavailable [phone] Encounter Details Date Type Department Care Team ([facility] st Contact Info) Description 04/20/[address] [facility] MEDICINE [address] [place] [address] Nikunj Gaviria MD 230 [place] [address] Social History Tobacco Use Types Packs/Day Years Used Date Smoking Tobacco: Never Passive Smoke Exposure: Never Smokeless Tobacco: Never Depression Answer Date Recorded Patient Health Questionnaire-9 Score 0 06/02/2022 Housing Stability Answer Date Recorded What is your housing situation today? I have serenadominguez dee 12/30/[address] you [...] Upcoming Encounters Date Type Department Care Team ([facility] st Contact Info) Description 08/28/2024 11:00 AM EDT Telemedicine [facility] CHC MED & PEDS 505 [place] [address] Abigail Lora, RN 505 [place] [address] 08/29/2024 10:15 AM EDT Office Visit [facility] MEDICINE 230 [place] [address] Nikunj Gaviria MD 230 [place] [address] 11/10/2024 10:00 AM EDT Office Visit [facility] OPTOMETRY 267 [place] [address] Lang, Jennifer, OD 230 [place] [address] documented as of this encounter Visit Diagnoses Not on filedocumented in this encounter Additional Health Concerns Assessment Noted Time PHQ-9 Depression Total Score: 0 06/03/19 23 10:07 AM EDT documented as of this encounter Care Teams Performance Consultant Relationship Specialty Start Date End Date Nikunj Gaviria MD [address] [place] [address] PCP - General Internal Medicine 10/30/13 Dixie Adrian, Judy [address] [place] [address] Pharmacist Internal Medicine 08/30/23 Roberto Estrada MD [facility] 200 [place] [address] Nephrology 02/18/24 documented as of this encounter
--- OUTSIDE RECORDS SUMMARY | 2024-06-27 07:49 | XMS_ITS | Clinical Summary ---
Author Organization [facility] Address [address] [address] Phone Care Team Providers Care Review Scheduling Coordinator Name Role Phone Nikunj Jacobs MD Primary Care Provider Unav ailable Allergies Active Allergy Reactions Criticality Noted Date Comments Lisinopril Other (see comments) 09/04/2020 Medications allopurinol (ZYLOPRIM) 300 MG tablet Take 300 mg by mouth 1 (one) time each day 1 Active aspirin (ST GONZÁLEZ) 81 MG EC tablet Take 81 mg by mouth 1 (one) time each day Active atorvastatin (LIPITOR) 40 MG tablet Take 40 mg by mouth 1 (one) time each day 1 Active cilostazol (PLETAL) 100 MG tablet Take 100 mg by mouth 2 (two) times a day Active Levemir 100 UNIT/ML injection INJECT 30 BY SUBCUTANEOUS ROUTE AT BEDTIME 1 Active metoprolol tartrate (LOPRESSOR) 50 MG tablet Take 50 mg by mouth 2 (two) times a day Active amLODIPine (NORVASC) 10 MG tablet Take 10 mg by mouth 1 (one) time each day 1 Active oxyCODONE-aceta minophen (PERCOCET) 5-325 MG per tablet TOME DILLON TABLETA CADA OCHO H[place]AS CU[place]O SEA NECESARIO PARA EL DOLOR 1 Active spironolactone (ALDACTONE) 25 MG tablet Take 25 mg by mouth 2 (two) times a day 1 Active potassium citrate 10 MEQ (1080 MG) CR tablet Take 10 mEq by mouth 2 (two) times a day 9 Active zolpidem (AMBIEN) 5 MG tablet TOME DILLON TABLETA TODOS LOS D AL ACOSTARSE 1 Active Tresiba FlexTouch 200 UNIT/ML injection INJECT 40 UNITS SUBCUTANEOUS AT BEDTIME 4 Active tamsulosin (FLOMAX) 0.4 MG 24 hr capsuleIndicati ons:Chronic kidney disease stage 2,Hypertensive renal disease,Type 2 diabetes mellitus with peripheral angiopathy (HCC) TAKE 1 CAPSULE BY MOUTH 1 TIME EACH DAY. 90 capsule 3 5 Active Active Problems Problem Noted Date Diagnosed Date Renal osteodystrophy 11/19/2022 Stenosis of right carotid artery 06/02/2022 11/19/2022 Overview (11/19/2022): Last Assessment & Plan: Pts supervisor inspection room ordered a carotid doppler 06/08/2019 that showed: [...] schedule a follow up. Primary insomnia 06/02/2022 11/19/2022 Overview (11/19/2022): Last Assessment & Plan: Using Ambien 5 mg po at bedtime with good results In home sleep study showed MILD KATI Patient encounter status 06/02/2022 023 Overview (11/19/2022): Last Assessment & Plan: Colonoscopy: 2014 ( Pt Dr Yoder ) Chronic neck pain 06/02/2022 11/19/2022 Overview (11/19/2022): Last Assessment & Plan: Pt with persistent c/o right sided neck [...] C5-C6, C6-C7. Wants to stay as is Chronic anemia 06/02/2022 11/19/2022 Overview (11/19/2022): Last Assessment & Plan: Recent CBC per nephrology showed mild anemia Repeat showed slight improvement B 12, Folate, Iron studies, SPEP, LDH unremarkable likely due to CKD History of cerebrovascular accident 06/02/2022 11/19/2022 Overview (11/19/2022): Last Assessment & Plan: Pt had a recent CT of brain from his Telephone Station Installer for c/o visual field defects. CT showed: NO acute CVA. 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 Pt on aggressive risk factor modification. Statin, Plavix Stage 3a chronic kidney disease 04/06/2022 Patient post percutaneous transluminal coronary angioplasty 02/14/2022 Type 2 diabetes mellitus wit h diabetic chronic kidney disease 06/10/2021 Stage 3b chronic kidney disease 12/12/2020 Chronic kidney disease stage 2 09/04/2020 Hypertensive renal disease 09/04/2020 Renal disorder due to type 2 diabetes mellitus 0 09/04/2020 Type 2 diabetes mellitus with peripheral angiopa thy 09/04/2020 Benign prostatic hyperplasia 12/14/2013 Glaucoma 12/14/2013 Retinopathy due to type 2 diabetes mellitus 04/2013 Benign prostatic hyperplasia 12/14/201309/2022 Overview (11/19/2022): Last Assessment & Plan: Pt with intermittent c/o difficulty urinating, previous HEMANTH August 25 2007 was wnl. He declined HEMANTH last visit Last PSA checked on 09/27/2013 was 3.77 Bladder US had shown an enlarged prostate. Pt was finally seen for an episode of gross hematuria at [facility] on 09/2013 that pt states was due [...] conditions such as renal or bladder malignancy Depressive disorder 11/09/2011 H/O: alcoholism 11/09/2011 History of drug abuse 11/09/2011 Subclavian artery stenosis 11/09/2011 Spinal stenosis 11/09/2011 Coronary atherosclerosis of [place] coronary pavan ry 11/09/2011 11/19/2022 Overview (11/19/2022): Last Assessment & Plan: Pt has CAD, s/p ID with [facility] in the past (last in 2007 with stent in 2001). 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 Myocardial perfusion imaging showed mildly reversible chest wall defect consistent with prior ID. He had question of AV block/pause so metoprolol was decreased from 100mg BID to 50mg BID. In the past he saw Dr layne (supervisor inspection room) at [facility] and underwent a cardiac cath done on [...] saw 12/08/2021 Has a follow up 06/08/2022 Gout 08/14/2011 Hyperlipidemia 08/14/2011 Type 2 diabetes mellitus 08/14/2011 Plantar fasciitis 08/14/2011 Coronary atherosclerosis 06/21/2008 Dyslipidemia 06/21/2008 Hypertensive disorder 06/21/2008 Surgical follow-up 06/21/2008 Immunizations Immunization Administration Dates Next Due Influenza Split 03/22/2013,04/14/2012 Influenza, Quadrivalent, Preservative Free 01/05,04/11/2015 Influenza, Quadrivalent, With Preservative 02/01 Influenza, Unspecified 01/13/2022,12/14/2013,05/2006 Moderna SARS-COV-2 02/19/2021,05/30/2020, 021 Pneumococcal Conjugate 13-Valent 08/01/2015 Pneumococcal Polysaccharide 08/09/2002 Td 10/28/2021,08/09/2002 Tdap 02/11/2012 Zoster 08/01/2015 Social History Tobacco Use Types Packs/Day Years Used Date Smoking Tobacco: Former Comments:Smoking History Inf o:Every day Sex and Gender Information Value Date Recorded Sex Assigned at Not on file Legal Sex Male 5:14 PM EST Gender Identity Not on file Sexual Orientation Not on file Last Filed Vital Signs Vital Sign Reading Time Taken Comments Blood Pressure 134/78 03/13/2024 2:17 PM EST Pulse 68 11/19/2022 8:25 AM EDT Temperature - - Respiratory Rate - - Oxygen Saturation 97% 11/19/2022 8:25 AM EDT Inhaled Oxygen Concentration - - Weight 101 kg (221 lb 9.6 oz) 03/13/2024 2:17 PM EST Height 175.3 cm (5' 9 ) 02/20/2019 12:00 PM EST Body Mass Index 32.72 02/20/2019 12:00 PM EST Plan of Treatment Upcoming Encounters Date Type Department Care Team (Late st Contact Info) Description 12/25/2024 2:15 PM EDT [facility] [address] [place] [address] [place] [address] Roberto Estrada MD [address] [facility] 204 [place] [address] Health Maintenance Due Date Last Done Comments Pneumococcal Vaccine: 50+ Years (3 of 3 - PPSV23, PCV20 or PCV21) 09/26/2015 08/01/2015, 08/09/2002 Diabetes: Ophthalmology Exam 04/14/2020 Diabetes: Pedal Pulse Checked 04/14/2020 Diabetes: Sensory Foot Exam 04/14/2020 Diabetes: Visual Foot Exam 04/14/2020 Diabetes: Hemoglobin A1C 04/21/2024 024, 08/30/2023, 04/13/2023 Pneumococcal Vaccine: Peds (0 to 5 Years) and At-Risk Patients (6 to 49 Years) Discontinued 08/01/2015, 08/09/2002 Influenza Vaccine Completed 01/20/2024, , 01/05/2019, Additional history exists Hepatitis B Vaccine Aged Out No longe r eligible based on patient's age to complete this topic Insurance Medicare Medicaid [place] Medicare Medicaid [place] Care Teams Review Scheduling Coordinator Relationship Specialty Start Date End Date Nikunj Jacobs MD [address] [place] [address] PCP - General 03/25/20
--- OUTSIDE RECORDS SUMMARY | 2024-06-27 07:49 | XMS_ITS | Encounter Summary ---
Author Organization [employer] Address 75 [facility] 7t [place] [address] Care Team Providers Care Plastics Technician Name Role Phone Nikunj Gaviria MD Primary Care Provide r Dixie Adrian PharmD Unavailable [phone] Roberto Estrada MD Unavailable [phone] Reason for Visit * Reason Onset Date Comments Med Refill 09/04/2022 Encounter Details Date Type Department Care Team (Late st Contact Info) Description 09/04/2022 Telephone [facility] MEDICINE [address] [place] [address] Nikunj Gaviria MD [address] [place], [place] [phone] Med Refill Social History Tobacco Use Types Packs/Day Years Used Date Smoking Tobacco: Never Smokeless Tobacco: Never Depression Answer Date [...] encounter Miscellaneous Notes * Telephone Encounter - Terri Morin RN - 09/07/2022 10:19 AM EDT Medication awaiting PCP approval. PCP working on inbox today * Telephone Encounter - Chacha Burgess - 09/07/2022 10:10 AM EDT Tc from pt spouse requesting status on med refill above. Please sent to [facility]/pharmacy #[id number] - [place] FRANCISCA - [address] [facility] * Telephone Encounter - Veronica Mosley - 09/04/2022 2:21 PM EDT Tc from patient requesting a med refill on medication oxycodone [address] Jacobs documented in this encounter Plan of Treatment Upcoming Encounters Date Type Department Care Team (Late st Contact Info) Description 08/28/2024 11:00 AM EDT Telemedicine [facility] CHC MED & PEDS [address] [place] [address] Abigail Lora, RN 505 [place] [address] 08/29/2024 10:15 AM EDT Office Visit [facility] MEDICINE 230 [place] [address] Nikunj Gaviria MD 230 [place] [address] 11/10/2024 10:00 AM EDT Office Visit [facility] OPTOMETRY [address] [place] [address] Lang, Jennifer, OD 230 [place] [address] documented as of this encounter Visit Diagnoses Not on filedocumented in this encounter Additional Health Concerns Assessment Noted Time PHQ-9 Depression Total Score: 0 06/03/19 10:07 AM EDT documented as of this encounter Care Teams Plastics Technician Relationship Specialty Start Date End Date Nikunj Gaviria MD [address] [place] [address] PCP - General Internal Medicine 10/30/13 Dixie Adrian PharmD [address] [place] [address] Pharmacist Internal Medicine 08/30/23 Roberto Estrada MD [address] [address] Nephrology 02/18/24 documented as of this encounter
--- OUTSIDE RECORDS SUMMARY | 2024-06-27 07:49 | XMS_ITS | Encounter Summary ---
Author Organization [employer] Address 75 [facility] 7t [place] [address] Care Team Providers Care Cardiovascular Surgeon Name Role Phone Nikunj Gaviria MD Primary Care Provide r Dixie Adrian PharmD Unavailable [phone] Roberto Estrada MD Unavailable [phone] Reason for Visit * Reason Onset Date Comments Med Refill 03/11/2022 Encounter Details Date Type Department Care Team ([facility] st Contact Info) Description 03/11/2022 Telephone [facility] MEDICINE [address] [place] [address] Nikunj Gaviria MD [address] [place] [address] Med Refill Social History Tobacco Use Types Packs/Day Years Used Date Smoking Tobacco: Never Assessed Sex and Gender Information Value Date Recorded Sex Assigned at Male 01/12/2022 10:14 AM EDT Legal Sex Male 10:14 AM EDT Gender Identity Male 01/12/2022 10:14 AM EDT Sexual Orientation Straight 01/12/2022 10 :14 AM EDT COVID-19 Exposure Response Date Recorded In the last 10 days, have yo u been in contact with someone who was confirmed or suspected to have Coronavirus/COVID-19? No / Unsure 02/24/2022 10:28 AM EST documented as of this encounter Miscellaneous Notes * Telephone Encounter - Raven Valles - 03/11/2022 2:56 PM EST Tc from pt requesting med refill on medication percocet . documented in this encounter Plan of Treatment Upcoming Encounters Date Type Department Care Team (Late st Contact Info) Description 08/28/2024 11:00 AM EDT Telemedicine [facility] CHC MED & PEDS 505 [place] [address] Abigail Lora, RN 505 [place] [address] 08/29/2024 10:15 AM EDT Office Visit [facility] MEDICINE 230 [place] [address] Nikunj Gaviria MD 230 [place] [address] 11/10/2024 10:00 AM EDT Office Visit [facility] OPTOMETRY [address] [place] [address] Jennifer Croft, OD 230 [place] [address] documented as of this encounter Visit Diagnoses Not on filedocumented in this encounter Care Teams Cardiovascular Surgeon Relationship Specialty Start Date End Date Nikunj Gaviria MD 230 [place] [address] PCP - General Internal Medicine 10/30/13 Dixie Adrian PharmD 230 [place] [address] Pharmacist Internal Medicine 08/30/23 Roberto Estrada MD [address] [place] [address] [place] [id number] Nephrology 02/18/24 documented as of this encounter
--- OUTSIDE RECORDS SUMMARY | 2024-06-27 07:49 | XMS_ITS | Encounter Summary ---
Author Organization [employer] Address 75 [facility] 7t [place] [address] Care Team Providers Care Carbonation Equipment Operator Name Role Phone Nikunj Gaviria MD Primary Care Provide r Dixie Adrian PharmD Unavailable [phone] Roberto Estrada MD Unavailable [phone] Reason for Visit * Reason Comments Med Refill Encounter Details Date Type Department Care Team (Late st Contact Info) Description 11/08/2023 Refill [facility] MEDICINE 230 [place] [address] Tatyana Jc, ANP 230 [place] [address] Pain Social History Tobacco Use Types Packs/Day [...] Upcoming Encounters Date Type Department Care Team ([facility] Contact Info) Description 08/28/2024 11:00 AM EDT Telemedicine [facility] CHC MED & PEDS 505 [place] [address] Abigail Lora, RAFAEL 505 [place] [address] 08/29/2024 10:15 AM EDT Office Visit [facility] MEDICINE [address] [place] [address] Nikunj Gaviria MD 230 [place] [address] 11/10/2024 10:00 AM EDT Office Visit [facility] OPTOMETRY [address] [place] [address] Jennifer Croft, OD [address] [place] [address] documented as of this encounter Goals Goal [...] documented as of this encounter Care Teams Carbonation Equipment Operator Relationship Specialty Start Date End Date Nikunj Gaviria MD 230 [place] [address] PCP - General Internal Medicine 10/30/13 Dixie Adrian PharmD 230 [place] [address] Pharmacist Internal Medicine 08/30/23 Roberto Estrada MD [address] [address] Nephrology 02/18/24 documented as of this encounter
--- OUTSIDE RECORDS SUMMARY | 2024-06-27 07:49 | XMS_ITS | Encounter Summary ---
Author Organization [employer] Address 75 [facility] 7t [place] [address] Care Team Providers Care Zipper Joiner Name Role Phone Nikunj Gaviria MD Primary Care Provide r Dixie Adrian PharmD Unavailable [phone] Roberto Estrada MD Unavailable [phone] Reason for Visit * Reason Onset Date Comments [facility] 10/11/2023 Encounter Details Date Type Department Care Team ([facility] st Contact Info) Description 10/11/2023 Telephone [facility] MEDICINE [address] [place] [address] Nikunj Gaviria MD [address] [place] [address] [facility] Social History Tobacco Use Types Packs/Day Years [...] encounter Miscellaneous Notes * Telephone Encounter - Angie Longoria RN - 10/14/2023 11:54 AM EDT TC placed to pt Maddi to schedule an [employer] ride for transportation to tomorrow's appt at the [facility]. Ride is scheduled and pt informed that pt chart will be sent to the referrals department to set up PT1 transportation in the future due to having Gen[employer]. * Telephone Encounter - Chula Oneal - 10/11/2023 9:54 AM EDT Tc from pt requesting transportation for the pt appt on 10/14 with [facility] nurse at [facility]. Demographics confirmed documented in this encounter Plan of Treatment Upcoming Encounters Date Type Department Care Team (Late st Contact Info) Description 08/28/2024 11:00 AM EDT Telemedicine [facility] MED & PEDS 505 [place] [address] Abigail Lora, RN 505 [place] [address] 08/29/2024 10:15 AM EDT Office Visit [facility] MEDICINE [address] [place] [phone] Nikunj Gaviria MD 230 [place] [address] 11/10/2024 10:00 AM EDT Office Visit [facility] OPTOMETRY [address] [place] [address] Jennifer Croft, OD [address] [place] [address] documented as of this encounter Goals Goal [...] documented as of this encounter Care Teams Zipper Joiner Relationship Specialty Start Date End Date Nikunj Gaviria MD 230 [place] [address] PCP - General Internal Medicine 10/30/13 Dixie Adrian, PharmD 230 [place] [address] Pharmacist Internal Medicine 08/30/23 Roberto Estrada MD 100 [facility] 200 [place] [address] Nephrology 02/18/24 documented as of this encounter
--- OUTSIDE RECORDS SUMMARY | 2024-06-27 07:49 | XMS_ITS | Encounter Summary ---
Author Organization [employer] Address 75 [facility] 7t [place] [address] Care Team Providers Care Floorman Name Role Phone Nikunj Gaviria MD Primary Care Provide r Dixie Adrian PharmD Unavailable [phone] Roberto Estrada MD Unavailable [phone] Reason for Visit * Reason Comments Med Refill Encounter Details Date Type Department Care Team (Late st Contact Info) Description 02/04/2024 Refill [facility] MEDICINE 230 [place] [address] Rasheeda Cruz MD [address] [place] [address] Primary insomnia Social History Tobacco Use Types [...] Upcoming Encounters Date Type Department Care Team ([facility] st Contact Info) Description 08/28/2024 11:00 AM EDT Telemedicine [facility] CHC MED & PEDS [address] [place] [address] Abigail Lora RN 505 [place] [address] 08/29/2024 10:15 AM EDT Office Visit [facility] MEDICINE 230 [place] [address] Nikunj Gaviria MD [address] [place] [address] 11/10/2024 10:00 AM EDT Office Visit [facility] OPTOMETRY [address] [place] [address] Jennifer Croft, OD 230 [place] [address] documented as of this encounter Goals Goal [...] documented as of this encounter Care Teams Floorman Relationship Specialty Start Date End Date Nikunj Gaviria MD [address] [place] [address] PCP - General Internal Medicine 10/30/13 Dixie Adrian PharmD [address] [place] [address] Pharmacist Internal Medicine 08/30/23 Roberto Etsrada MD 100 [facility] 200 [place] [address] Nephrology 02/18/24 documented as of this encounter
== END ==
LOC: HO.CARD 07:46
PROVIDERS: PCP Internal Medicine; Visit Provider Internal Medicine Cardiovascular Disease
DX: I20.89 Other forms of angina pectoris (principal); I25.10 Atherosclerotic heart disease of native coronary artery without angina pectoris; I10 Essential (primary) hypertension
CPT/HCPCS: 78452; 93017; A9500; J0280; J2785

== ENCOUNTER → 2024-06-27 07:49 | Outpatient (BNV) | payer MEDICARE, MEDICAID, SELFPAY | PROVIDERS: PCP Internal Medicine | DX: I25.10 Atherosclerotic heart disease of native coronary artery without angina pectoris (principal) | CPT/HCPCS: 78452; 93016; 93018 ==

== ENCOUNTER 2024-07-19 06:54 | Outpatient (REF) | payer MEDICARE, MEDICAID, SELFPAY ==
--- NOTE | ~2024-07-19 | CT_ITS ---
EXAMINATION: CT ABDOMEN AND PELVIS WITHOUT CONTRAST CLINICAL INFORMATION: Right lower quadrant abdominal pain. COMPARISON: March 13, 2016 TECHNIQUE: Multidetector volumetric imaging was performed from the superior aspect of the liver through the pubic symphysis. Sagittal and coronal reformatted images were obtained on the technologist's workstation. Oral contrast: [address] examination was performed using dose optimization techniques as appropriate, variously including the following: *Automated exposure control *Adjustment of mA and/or kV according to patient size (this includes techniques or standardized protocols for targeted exams where dose is matched to indication/reason for exam; i.e. extremities or head) *Use of iterative reconstruction technique. DLP: 574 mGy centimeter. FINDINGS: Inadequate evaluation of the intra-abdominal organs and vascular structures due to lack of IV contrast. LUNG BASES: No acute airspace disease. LIVER, GALLBLADDER, AND BILIARY TREE: Liver measures 15 cm. Subtle nodular surface. No intrahepatic biliary ductal dilatation. [Status post cholecystectomy, likely laparoscopic. Common bile duct measures 9 mm. PANCREAS: No peripancreatic fluid collection. No main pancreatic ductal dilatation. SPLEEN: 11 cm. Trace of subcapsular calcifications in the superior medial aspect. ADRENAL GLANDS: Soft tissue fullness with -1 Hounsfield unit measurement, bilaterally. KIDNEYS AND URETERS: Right kidney: Multifocal exophytic cystic lesions, the largest measures 4 cm in the posterior midportion. No hydronephrosis. No nephrolithiasis. Left kidney: Asymmetrically smaller with respect to the contralateral side. No hydronephrosis. No nephrolithiasis. Subcentimeter exophytic cystic lesion in the lateral midportion. BLADDER: Fluid-filled. GASTROINTESTINAL TRACT: No intestinal obstruction pattern. Abundant stool. Appendix is normal. No intestinal wall thickening. Few scattered diverticula in the left hemicolon. ABDOMINAL WALL: No gross umbilical hernia. LYMPH NODES: No lymphadenopathy, mesenteric or retroperitoneal. VASCULAR: There is a crescent-shaped anterior right and left lateral irregular wall thickening centered in the infrarenal abdominal aorta with a maximum diameter of 4.2 cm. There are calcified plaques throughout the abdominal aorta the mesenteric arteries, the renal arteries, the splenic artery and the iliac arteries as well as the arteries in the thyroid. Vascular calcifications in the coronary arteries and descending thoracic aorta. PELVIC VISCERA: 6 cm heterogeneous enlarged prostate gland. OSSEOUS STRUCTURES: Multilevel thoracolumbar spondylosis more conspicuous at L4-5 and L5-S1 with vacuum phenomenon and decreased intervertebral disc height. Degenerative changes, mild in the coxofemoral joints and sacroiliac joints. Degenerative changes in the symphysis pubis. No acute fracture. 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 Consider infectious versus noninfectious etiologies. Coronary artery disease and atherosclerosis disease. Multifocal different sizes cystic lesions, both kidneys. Diverticular disease, left hemicolon. Probable benign prostate hyperplasia. Asymmetric volume loss left kidney. Spondylosis L4-5 and L5-S1. Fleischner guidelines were followed. Electronically signed by: Kar Adair MD 07/19/2024 10:00 AM EDT
--- OUTSIDE RECORDS SUMMARY | 2024-07-19 06:56 | XMS_ITS | Encounter Summary ---
Author Organization [employer] Address 75 [facility] 7t [place] [address] Care Team Providers Care Computer Networking Instructor Name Role Phone Nikunj Gaviria MD Primary Care Provide r Dixie Adrian PharmD Unavailable [phone] Roberto Estrada MD Unavailable [phone] Reason for Visit * Reason Comments Med Refill Encounter Details Date Type Department Care Team ([facility] st Contact Info) Description 11/08/2023 Refill [facility] MEDICINE 230 [place] [address] Tatyana Jc, ANP 230 [place] [address] Pain Social History Tobacco Use Types Packs/Day [...] Encounters Date Type Department Care Team ([facility] Contact Info) Description 08/28/2024 11:00 AM EDT Telemedicine [facility] CHC MED & PEDS [address] [place] [address] Abigail Lora, RAFAEL 505 [place] [address] 08/29/2024 10:15 AM EDT Office Visit [facility] MEDICINE 230 [place] [address] Nikunj Gaviria MD 230 [place] [address] 11/10/2024 10:00 AM EDT Office Visit [facility] OPTOMETRY [address] [place] [address] Jennifer Croft, MATT 230 [place] [address] documented as of this encounter Goals Goal [...] documented as of this encounter Care Teams Computer Networking Instructor Relationship Specialty Start Date End Date Nikunj Gaviria MD 230 [place] [address] PCP - General Internal Medicine 10/30/13 Dixie Adrian PharmD 230 [place] [address] Pharmacist Internal Medicine 08/30/23 Roberto Estrada MD 100 [facility] [address] [address] Nephrology 02/18/24 documented as of this encounter
--- OUTSIDE RECORDS SUMMARY | 2024-07-19 06:56 | XMS_ITS | Encounter Summary ---
Author Organization [employer] Address 75 [facility] 7t [place] [address] Care Team Providers Care Specialist Managers Name Role Phone Nikunj Gaviria MD Primary Care Provide r Dixie Adrian PharmD Unavailable [phone] Roberto Estrada MD Unavailable [phone] Reason for Visit * Reason Comments Med Refill Encounter Details Date Type Department Care Team ([facility] st Contact Info) Description 12/05/2023 Refill [facility] MEDICINE [address] [place] [address] Nikunj Gaviria MD 230 [place] [address] Primary insomnia Social History Tobacco Use Types [...] Upcoming Encounters Date Type Department Care Team ([facility] st Contact Info) Description 08/28/2024 11:00 AM EDT Telemedicine [facility] CHC MED & PEDS 505 [place] [address] Abigail Lora, RAFAEL 505 [place] [address] 08/29/2024 10:15 AM EDT Office Visit [facility] MEDICINE 230 [place] [address] Nikunj Gaviria MD 230 [place] [address] 11/10/2024 10:00 AM EDT Office Visit [facility] OPTOMETRY [address] [place] [address] Jennifer Croft, OD 230 [place] [address] documented as of this encounter Goals Goal [...] documented as of this encounter Care Teams Specialist Managers Relationship Specialty Start Date End Date Nikunj Gaviria MD 230 [place] [address] PCP - General Internal Medicine 10/30/13 Dixie Adrian, HarshilD 230 [place] [address] Pharmacist Internal Medicine 08/30/23 Roberto Estrada MD 100 [facility] 200 [place] [address] Nephrology 02/18/24 documented as of this encounter
--- OUTSIDE RECORDS SUMMARY | 2024-07-19 06:56 | XMS_ITS | Encounter Summary ---
Author Organization [employer] Address 75 [facility] 7t [place] [address] Care Team Providers Care Franchise Sales Representative Name Role Phone Nikunj Gaviria MD Primary Care Provide r Dixie Adrian PharmD Unavailable [phone] Roberto Estrada MD Unavailable [phone] Reason for Visit * Reason Onset Date Comments Med Refill 11/05/2023 Encounter Details Date Type Department Care Team (Late st Contact Info) Description 11/05/2023 Telephone [facility] MEDICINE [address] [place] [address] Nikunj Gaviria MD 230 [place], [place] [phone] Med Refill Social History Tobacco Use Types [...] 5-325 MG tablet To be sent to: [facility] Pharmacy documented in this encounter Plan of Treatment Upcoming Encounters Date Type Department Care Team ([facility] st Contact Info) Description 08/28/2024 11:00 AM EDT Telemedicine [facility] CHC MED & PEDS [address] [place] [address] Abigail Lora, RN 505 [place] [address] 08/29/2024 10:15 AM EDT Office Visit [facility] MEDICINE [address] [place] [address] Nikunj Gaviria MD 230 [place] [address] 11/10/2024 10:00 AM EDT Office Visit [facility] OPTOMETRY [address] [place] [address] Jennifer Croft, OD [address] [place] [address] documented as of this encounter Goals Goal [...] documented as of this encounter Care Teams Franchise Sales Representative Relationship Specialty Start Date End Date Nikunj Gaviria MD 230 [place] [address] PCP - General Internal Medicine 10/30/13 Dixie Adrian, PharmD 230 [place] [address] Pharmacist Internal Medicine 08/30/23 Roberto Estrada MD 100 [facility] 200 [place] [address] Nephrology 02/18/24 documented as of this encounter
--- OUTSIDE RECORDS SUMMARY | 2024-07-19 06:56 | XMS_ITS | Encounter Summary ---
Author Organization [employer] Address 75 [facility] 7t [place] [address] Care Team Providers Care Senior Mainframe Developer Name Role Phone Nikunj Gaviria MD Primary Care Provide r Dixie Adrian PharmD Unavailable [phone] Roberto Estrada MD Unavailable [phone] Reason for Visit * Reason Onset Date Comments Med Refill 09/04/2022 Encounter Details Date Type Department Care Team (Late st Contact Info) Description 09/04/2022 Telephone [facility] MEDICINE 230 [place] [address] Nikunj Gaviria MD 230 [place] [address] Med Refill Social History Tobacco Use Types [...] on med refill above. Please sent to [facility]/pharmacy #[id number] - [place] STODDARD - [address] [facility] * Telephone Encounter - Veronica Mosley - 09/04/2022 2:21 PM EDT Tc from patient requesting a med refill on medication oxycodone [address] Jacobs documented in this encounter Plan of Treatment Upcoming Encounters Date Type Department Care Team (Late st Contact Info) Description 08/28/2024 11:00 AM EDT Telemedicine [facility] CHC MED & PEDS 505 [place] [address] Abigail Lora, RAFAEL 505 [place] [address] 08/29/2024 10:15 AM EDT Office Visit [facility] MEDICINE 230 [place] [address] Nikunj Gaviria MD 230 [place] [address] 11/10/2024 10:00 AM EDT Office Visit [facility] OPTOMETRY [address] [place] [address] Lang, Jennifer, OD 230 [place] [address] documented as of this encounter Visit Diagnoses Not on filedocumented in this encounter Additional Health Concerns Assessment Noted Time PHQ-9 Depression Total Score: 0 06/03/19 10:07 AM EDT documented as of this encounter Care Teams Senior Mainframe Developer Relationship Specialty Start Date End Date Nikunj Gaviria MD 230 [place] [address] PCP - General Internal Medicine 10/30/13 Dixie Adrian PharmD 230 [place] [address] Pharmacist Internal Medicine 08/30/23 Roberto Estrada MD [address] [address] Nephrology 02/18/24 documented as of this encounter
--- OUTSIDE RECORDS SUMMARY | 2024-07-19 06:56 | XMS_ITS | Clinical Summary ---
Author Organization [employer] Address [address] [facility] [facility] [address] [place] [address] Care Team Providers Care Clinical Practice Consultant Name Role Phone Nikunj Gaviria MD Primary Care Provide r Dixie Adrian PharmD Unavailable [phone] Roberto Estrada MD Unavailable [phone] Allergies Active Allergy Reactions Criticality Noted Date Comments Lisinopril Angioedema 12/14/2013 Medications naloxone (Narcan) 4 mg/0.1 mL nasal spray Administer 0.1 mL into affected nostril(s). [place] 0.1 milliliter by intranasal route in 1 [...] as directed Active Blood Glucose Monitoring Suppl (BlueStacksStyle Lite) w/Device kit Test 1 times by intradermal route every day Active Blood Pressure kit Use 1 by Misc. (Non-Drug; Combo Route) route Active insulin syringe-needle [...] MEALS 180 tablet 3 04/18/19 25 Active allopurinol (Zyloprim) 300 MG tablet TAKE 1 TABLET BY MOUTH EVERY DAY 90 tablet 1 06/16/19 25 Active Insulin Degludec FlexTouch 200 UNIT/ML solution pen-injectorInd ications:Type 2 diabetes mellitus with stage 3 chronic kidney disease, with long-term current use of insulin, unspecified whether stage 3a or 3b CKD (CMS/HCC) Inject 40 Units under the skin at bedtime. 9 mL 1 06/30/19 25 Active oxyCODONE-aceta minophen (Percocet) 5-325 MG tabletIndicatio ns:Pain Take 1 tablet by mouth every 8 (eight) hours if needed for severe pain. 84 tablet 07/07/19 25 Active zolpidem (Ambien) 10 MG tabletIndicatio ns:Primary insomnia TAKE 1 TABLET BY MOUTH EVERY DAY AT BEDTIME 30 tablet 07/11/19 25 Active amLODIPine (Norvasc) 10 MG tabletIndicatio ns:Essential hypertension TAKE 1 TABLET BY MOUTH EVERY DAY 90 tablet 07/15/19 25 Active amLODIPine (Norvasc) 10 MG tabletIndicatio ns:Essential hypertension TAKE 1 TABLET BY MOUTH ONCE A DAY 90 tablet 04/18/19 25 2024 Discontinued Insulin Degludec FlexTouch 200 UNIT/ML solution pen-injectorInd ications:Type 2 diabetes mellitus with stage 3 chronic kidney disease, with long-term current use of insulin, unspecified whether stage 3a or 3b CKD (CMS/HCC) Inject 40 Units under the skin at bedtime. 3 mL 05/09/19 25 2024 Discontinued oxyCODONE-aceta minophen (Percocet) 5-325 MG tabletIndicatio ns:Pain Take 1 tablet by mouth every 8 (eight) hours if needed for severe pain. 84 tablet 06/07/19 25 2024 Discontinued(R eorder (will not trigger notification to Pharmacy)) zolpidem (Ambien) 10 MG tabletIndicatio ns:Primary insomnia TAKE 1 TABLET BY MOUTH EVERY DAY AT BEDTIME 30 tablet 06/07/19 25 2024 Discontinued(R eorder (will not trigger [...] & Plan (06/02/2022 10:24 AM EDT): Pts fiction writer ordered a carotid doppler 06/08/2019 that showed: [...] a recent CT of brain from his Telecommunications Sales Representative for c/o visual field defects. CT showed: [...] exam was last done on: 05/12/2024 by [facility] Previously he was seen by [...] exam was last done on: 12/03/2023 by [facility]. Previously he was seen by [...] for an episode of gross hematuria at [facility] on 09/2013 that pt states was due [...] for an episode of gross hematuria at [facility] on 09/2013 that pt states was due [...] mellitus 12/14/2013 Glaucoma 12/14/2013 Coronary atherosclerosis of miccosukee coronary pavan ry 11/09/2011 Assessment & Plan (05/25/2024 10:08 AM EDT): Pt here for a follow up has CAD, s/p RI with [employer] in the past (last in 2007 with stent in 2001). 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 Myocardial perfusion imaging showed mildly reversible chest wall defect consistent with prior RI. He had question of AV block/pause so metoprolol was decreased from 100mg BID to 50mg BID. In the past he saw Dr layne (fiction writer) at [facility] and underwent a cardiac cath done on [...] Pt is under the care of Dr. weber , last note 06/08/2022. Pt tells me he was seen in February of lat year and showed me a card with an appointment for June 12 2024 Assessment & Plan (04/13/2023 9:31 AM EST): Pt has CAD, s/p RI with POOL LIFEGUARD in the past (last in 2007 with stent in 2001). 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 Myocardial perfusion imaging showed mildly reversible chest wall defect consistent with prior RI. He had question of AV block/pause so metoprolol was decreased from 100mg BID to 50mg BID. In the past he saw Dr layne (fiction writer) at [facility] and underwent a cardiac cath done on [...] is now under the care of Dr. weber who he last saw 06/08/2022 ECHO 01/2023 showed: Conclusions: - 1. Normal LV systolic function with LVEF of 60 65% with sudden normal filling pattern 2. Mildly dilated left atrium 3. Normal cardiac valvular Dopplers 4. Mildly dilated ascending aorta 3.9 cm 5. No gross pericardial effusion Assessment & Plan (01/12/2023 9:47 AM EDT): Pt has CAD, s/p RI with POOL LIFEGUARD in the past (last in 2007 with stent in 2001). 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 Myocardial perfusion imaging showed mildly reversible chest wall defect consistent with prior RI. He had question of AV block/pause so metoprolol was decreased from 100mg BID to 50mg BID. In the past he saw Dr layne (fiction writer) at [facility] and underwent a cardiac cath done on [...] is now under the care of Dr. weber who he last saw 06/08/2022 Assessment & Plan (06/02/2022 10:25 AM EDT): Pt has CAD, s/p RI with POOL LIFEGUARD in the past (last in 2007 with stent in 2001). 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 Myocardial perfusion imaging showed mildly reversible chest wall defect consistent with prior RI. He had question of AV block/pause so metoprolol was decreased from 100mg BID to 50mg BID. In the past he saw Dr layne (fiction writer) at [facility] and underwent a cardiac cath done on [...] is now under the care of Dr. weber who he last saw 12/08/2021 Has a [...] care of Na Mcfarland NP/Dr Rodríguez at [facility] Vascular surgery (vascular surgeon), Last note from 09/03/2017 Pt is s/p left superficial femoral artery stenting and a previous Right Carotid endarterectomy with c/o persistent left calve claudication he mention that back. He is now under the care of Dr Dom Cabello, last seen 10/30/2023. He mentioned he had stable claudication and recommended 1 year follow up Assessment & Plan (04/13/2023 9:27 AM EST): Pt with generalized atherosclerotic vascular disease. Used to be under the care of Na Mcfarland NP/Dr Rodríguez at [facility] Vascular surgery (vascular surgeon), Last note from [...] care of Na Mcfarland NP/Dr Rodríguez at [facility] Vascular surgery (vascular surgeon), Last note from [...] care of Na Mcfarland NP/Dr Rodríguez at [facility] Vascular surgery (vascular surgeon), Last note from [...] care of Na Mcfarland NP/Dr Rodríguez at [facility] Vascular surgery (vascular surgeon), Last note from [...] of Atorvastatin 40mg po qhs (switched by fiction writer and Fish oil 1000mg po TID. For [...] of Atorvastatin 40mg po qhs (switched by fiction writer and Fish oil 1000mg po TID. For [...] of Atorvastatin 40mg po qhs (switched by fiction writer and Fish oil 1000mg po TID. For [...] Encounters Date Type Department Care Team Description 07/14/2024 Refill [facility] MEDICINE [address] [place] [address] Nikunj Gaviria MD Essential hypertension 07/10/2024 Refill [facility] MEDICINE [address] [facility] [place] [address] Nikunj Gaviria MD Primary insomnia 07/06/2024 Refill [facility] MEDICINE [address] [place] [address] Nikunj Gaviria MD Pain 06/28/2024 Refill [facility] MEDICINE [address] [place] [address] Nikunj Gaviria MD Type 2 diabetes mellitus with stage 3 chronic kidney disease, with long-term current use of insulin, unspecified whether stage 3a or 3b CKD (CMS/HCC) 06/27/2024 Orders Only [facility] External Provider, [facility] 06/15/2024 Refill [facility] MEDICINE [address] [place] [address] Nikunj Gaviria MD 06/07/2024 Telephone [facility]ly [facility] Information Management [address] [place] [address] ABDOMEN ORDER 06/06/2024 Refill [facility] MED & PEDS [address] [place] [address] Nikunj Gaviria MD Primary insomnia 06/05/2024 11:00 AM EDT Telemedicine [facility] [address] [place] [address] Abigail Lora, RN Long-term current use of opiate analgesic 06/05/2024 Refill [facility] MED & PEDS [address] [place] [address] Abigail Lora, RN Pain 06/05/2024 Travel 06/05/2024 Telephone [facility] MEDICINE [address] [place] [address] Nikunj Gaviria MD Med Refill 05/26/2024 Population Health Risk Score [facility] [address] [place] [address] [phone] Provider, Population Health Generic 05/25/2024 10:00 AM EDT Office Visit [facility] MEDICINE [address] [place] [address] Nikunj Gaviria MD Type 2 diabetes mellitus with stage 3a chronic kidney disease, with long-term current use of insulin (CMS/HCC) (Primary Dx); Right lower quadrant abdominal pain; Stage 3b chronic kidney disease (CMS/HCC); Type 2 diabetes mellitus with peripheral angiopathy (CMS/HCC); Primary hypertension; Primary insomnia; Atherosclerosis of miccosukee coronary artery of miccosukee heart without angina pectoris; Benign prostatic hyperplasia with urinary frequency; Colon cancer screening; Preventative health care 05/25/2024 Travel 05/15/2024 Patient Outreach [facility] MEDICINE [address] [place] [address] Nikunj Gaviria MD Pre-visit Planning (SDOH Screening negative and Tobacco screening negative) 05/12/2024 10:00 AM EST Office Visit [facility] OPT[facility] [address] [place] [address] Lang, Jennifer, OD Open angle with borderline findings and low glaucoma risk in both eyes (Primary Dx); History of CVA in adulthood 05/12/2024 Travel 05/11/2024 Telephone [facility] MEDICINE [address] [place] [address] Nikunj Gaviria MD Chart Prep 05/10/2024 Refill [facility] MEDICINE [address] [place] [address] Nikunj Gaviria MD Primary insomnia 05/08/2024 Refill [facility] MEDICINE [address] [place] [address] Nikunj Gaviria MD Type 2 diabetes mellitus with stage 3 chronic kidney disease, with long-term current use of insulin, unspecified whether stage 3a or 3b CKD ([facility]) 05/06/2024 Refill [facility] MEDICINE [address] [place] [address] Joan Coreas MD Type 2 diabetes mellitus with stage 3 chronic kidney disease, with long-term current use of insulin, unspecified whether stage 3a or 3b CKD ([facility]) 05/05/2024 Refill [facility] MEDICINE [address] [place] [address] Nikunj Gaviria MD Pain from Last 3 Months Immunizations Name Administration [...] 08/28/2024 11:00 AM EDT Telemedicine [facility] [address] [place] [address] Abigail Lora, RAFAEL [address] [place] [address] 08/29/2024 10:15 AM EDT Office Visit [facility] MEDICINE [address] [place] [address] Nikunj Gaviria MD [address] [place] [address] 11/10/2024 10:00 AM EDT Office Visit [facility] [address] [place] [address] Jennifer Croft, MATT [address] [place] [address] Health Maintenance Due Date Last Done Comments Diabetes: Foot Exam 1958 Zoster Vaccines (2 of 3) 09/26/2015 08/01/2015 Pneumococcal Vaccine: 50+ Years (3 of 3 - PCV20 or PCV21) 07/31/2020 08/01/2015, 08/09/2002 RSV Patients and Patients Aged 60 years or older (1 - 1-dose 75+ series) 06/10/2023 COVID-19 Vaccine ( season) 2023 02/19/2021, 05/30/2020, 05/02/2020 Depression Screening [...] track(08/30/19 24 2:19 PM EDT) No Dixie Adrian PharmD Procedures Procedure Name Priority Date/Time Associated Diagnosis Comments STRESS TEST WITH MYOCARDIAL PERFUSION Routine 06/27/2024 8:00 AM EDT POCT GLYCATED HEMOGLOBIN, TOTAL Routine 05/25/2024 10:18 AM EDT Type 2 diabetes mellitus with stage 3a chronic kidney disease, with long-term current use of insulin (CMS/HCC) POCT GLUCOSE Routine 05/25/2024 10:18 AM EDT [...] Recently Relevant to Health Maintenance Results * Stress test with myocardial perfusion (06/27/2024 8:00 AM EDT) 06/27/2024 8:00 AM EDT Narrative [facility] IMAGING - 06/28/2024 2:06 PM EDT ? [facility] ?[address] ?[place] [address] ?Nuclear Medicine Report ? Signed ? Patient: Kirill Adkins,Leroy ?MR#: [id number] ?? [id number] ? : 1950 ?Acct:[id number] ? Age/Sex: 74 / M ?ADM Date: 04/15/25 ? Loc: HO.CARD ? Attending Dr: Robby Weber MD ? Ordering Physician: Robby Weber MD ?? Date of Service: 06/27/24 ?? Procedure(s): NM cardiolite stress test ?? Accession Number(s): [id number] ? cc: Nikunj Ferris MD; Robby Weber MD ? Lexiscan Myocardial perfusion study ? Indication: ?? Preoperative cardiovascular risk stratification ? Technique: ? The patient was brought in for a Lexiscan perfusion study on 06/27/2024 ?? and was injected 0.4 mg of Lexiscan intravenously. Within a minute of ?? this injection 35 mCi of sestamibi was given intravenously. Images were ?? obtained using the SPECT gamma camera interlaced with the gating ?? device. Images were obtained in supine position. ? Resting perfusion study was performed on 06/28/2024. Patient was ?? administered 35 mCi of sestamibi intravenously at rest. Images were ?? then obtained in supine position. ? Images obtained without without CT attenuation. Total DLP 115 mGy-cm. ? Images were processed with the software and compared side to side in ?? short axis, horizontal long axis and vertical long axis views. ? Findings: ? The stress perfusion study showed ??nonattenuated images show absent ?? uptake in the basal inferior as well as basal inferolateral is severely ?? reduced uptake in the mid inferior and apical inferior and as well as ?? the mid and basal inferolateral wall. Attenuated corrected images show ?? moderately reduced uptake basal inferior and inferolateral wall of the ?? LV myocardium. The gated study shows normal LV systolic function with ?? calculated LVEF of 61%. LV cavity is normal in size. The gated study ?? shows normal systolic ??wall thickening and contraction of except for ?? basal inferior segments. ?? Resting study shows no change in perfusion pattern compared to stress ?? perfusion study. Gating at rest reveals the basal inferior wall motion ?? abnormality with ejection fraction at 67%. ? The findings are consistent with no reversible ischemia with basal ?? inferior and inferolateral defect suggestive nontransmural infarct. ? NM/NM cardiolite stress test ?? Impression: ? 1. ??Myocardial perfusion imaging study shows basal inferior and ?? inferolateral nontransmural infarct without ischemia ?? 2. ??Gated LVEF is 61% ?? 3. Transient ischemic dilatation not present ? Nondiagnostic changes on EKG. ? Electronically signed by: ??Robby Weber MD ??06/28/2024 02:03 PM EDT RP ? Dictated By: ?Robby Weber MD ? Signed By: ?<Electronically signed by Robby Weber MD in OV> ?06/28/24 1403 ? DD/ 0800 ? TD/TT: 06/28/24 0845 ? Immigration Coordinator: ? Procedure Note Donotavelinterpreter, Image - 06/28/2024 [place] [address] Nuclear Medicine Report Signed Patient: Rosaline Contreras#: M [id number] : 9Acct:[id number] Age/Sex: 74 / MADM Date: 06/27/24 Loc: [facility] Attending Dr: Robby Weber MD Ordering Physician: Robby Weber MD Date of Service: 06/27/24 Procedure(s): NM cardiolite stress test Accession Number(s): [id number] cc: Nikunj Ferris MD; Robby eWber MD Lexiscan Myocardial perfusion study Indication: Preoperative cardiovascular risk stratification Technique: The patient was brought in for a Lexiscan perfusion study on 06/27/2024 and was injected 0.4 mg of Lexiscan intravenously. Within a minute of this injection 35 mCi of sestamibi was given intravenously. Images were obtained using the SPECT gamma camera interlaced with the gating device. Images were obtained in supine position. Resting perfusion study was performed on 06/28/2024. Patient was administered 35 mCi of sestamibi intravenously at rest. Images were then obtained in supine position. Images obtained without without CT attenuation. Total DLP 115 mGy-cm. Images were processed with the software and compared side to side in short axis, horizontal long axis and vertical long axis views. Findings: The stress perfusion study showed nonattenuated images show absent uptake in the basal inferior as well as basal inferolateral is severely reduced uptake in the mid inferior and apical inferior and as well as the mid and basal inferolateral wall. Attenuated corrected images show moderately reduced uptake basal inferior and inferolateral wall of the LV myocardium. The gated study shows normal LV systolic function with calculated LVEF of 61%. LV cavity is normal in size. The gated study shows normal systolic wall thickening and contraction of except for basal inferior segments. Resting study shows no change in perfusion pattern compared to stress perfusion study. Gating at rest reveals the basal inferior wall motion abnormality with ejection fraction at 67%. The findings are consistent with no reversible ischemia with basal inferior and inferolateral defect suggestive nontransmural infarct. NM/NM cardiolite stress test Impression: 1. 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 Gated LVEF is 61% 3. Transient ischemic dilatation not present Nondiagnostic changes on EKG. Electronically signed by: Robby Weber MD 06/28/2024 02:03 PM EDT RP Dictated By: Robby Weber MD Signed By: <Electronically signed by Robby Weber MD in OV> 06/28/24 1403 DD/ 0800 TD/TT: 06/28/24 0845 Immigration Coordinator: [facility] External Provider CV STRE SS PROCEDURES Final Result [facility] [address] [place] [phone] * (ABNORMAL) POCT HGB A1C (05/25/2024 10:18 AM EDT) [facility] Hemoglobin A1C 6.4(A) 4.0 - 6.0 % QC Media Lot # [id number] Lot# Expiration Date Blood 05/25/2024 10:1 8 AM EDT Nikunj Wright MD POINT OF CARE TEST EN TER/EDIT ORDERABLES Final Result * POCT Glucose (05/25/2024 10:18 AM EDT) Pathologist [facility] Glucose Blood, POC 127 60 - 200 mg/dL QC Media Lot # [id number] Lot# Expiration Date [id number] Blood Capillary blood specimen / Unknown 05/25/2024 10:18 AM EDT Nikunj Wright MD POINT OF CARE TEST [...] 6 months for a complete eye exam. Jennifer Croft OD OPHTH VISUAL FIELD Final Resu lt * (ABNORMAL) Lipid Panel, Standard (02/09/2024 9:14 AM EST) Pathologist [facility] Triglycerides 107 <150 mg/dL [facility] Comment:Desirable Triglyceri de: less than 150 mg/dLBorderline High Triglyceride 150-199 mg/dLHigh Triglyceride: 200-499 mg/dLVery High Triglyceride: greater than or equal to 5OO mg/dL Cholesterol 95 <200 mg/dL [facility] Comment:Desirable Cholestero l: less than 200 mg/dLBorderline High Cholesterol: 200-239 mg/dLHigh Cholesterol: greater than 239 mg/dL LDL Cholesterol Calculated 35 <100 mg/dL [facility] Comment:Desirable LDL: less than 100 mg/dLNear Optimal/Above Optimal LDL: 110- 129 mg/dLBorderline High LDL: 130-159 mg/dLHigh LDL: 160-189 mg/dLVery High LDL: greater than or equal to 190 mg/dL HDL Cholesterol 39(L) >40 mg/dL [facility] Comment:Desirable HDL: great er than 40 mg/dL Note: This HDL assay may give artificially low results in patients with liver disease. Blood Venous blood specimen / Unknown 02/09/2024 9:14 AM EST 02/09/2024 11:17 AM EST Nikunj Wright MD LAB BLOOD ORDERABLES Final Result Performing Organization Address City/[facility]/ZIP Co de Phone Number [facility] [address] [place] [phone] * HEPATITIS C AB W/REFL TO [...] a test for HCV RNA (test code 00503) is suggested. ?? For additional information please refer to http://education.[employer].Alkymos/faq/WFO80n8 (This link is being provided for informational/ educational purposes only.) ?? 01/14/2022 8:39 AM EDT us Nikunj Wright MD HISTORICAL/NON ORDERA BLE LABS Final Result CONVERTED LEGACY LABS from Last 3 Months or Most Recently Relevant to Health Maintenance Insurance [facility] STANDARD MEDICARE Care Teams Clinical Practice Consultant Relationship Specialty Start Date End Date Nikunj Gaviria MD [address] [place] [address] PCP - General Internal Medicine 10/30/13 Dixie Adrian PharmD [address] [place] [address] Pharmacist Internal Medicine 08/30/23 Roberto Estrada MD [address] [phone] Nephrology 02/18/24
--- OUTSIDE RECORDS SUMMARY | 2024-07-19 06:56 | XMS_ITS | Encounter Summary ---
Author Organization [employer] Address [address] [facility] [address] [place] [address] Care Team Providers Care Geology Professor Name Role Phone Nikunj Gaviria MD Primary Care Provide r Dixie Adrian PharmD Unavailable [phone] Roberto Estrada MD Unavailable [phone] Reason for Visit * Reason Onset Date Comments Med Refill 01/06/2024 Encounter Details Date Type Department Care Team (Late st Contact Info) Description 01/06/2024 Refill [facility] [address] [place] [address] Nikunj Gaviria MD [address] [place], [place] [phone] Pain Social History Tobacco Use Types Packs/Day [...] 5-325 MG tablet To be sent to: [facility] - [place], [place] - [address] [place] [address] documented in this encounter Plan of Treatment Upcoming Encounters Date Type Department Care Team ([facility] st Contact Info) Description 08/28/2024 11:00 AM EDT Telemedicine [facility] [address] [place] [address] Abigail Lora RN [address] [place] [address] 08/29/2024 10:15 AM EDT Office Visit [facility] [address] [place] [address] Nikunj Gaviria MD [address] [place] [address] 11/10/2024 10:00 AM EDT Office Visit [facility] [address] [place] [address] Jennifer Croft, OD [address] [place] [address] documented as of this encounter Goals Goal [...] documented as of this encounter Care Teams Geology Professor Relationship Specialty Start Date End Date Nikunj Gaviria MD [address] [place] [address] PCP - General Internal Medicine 10/30/13 Dixie Adrian, PharmD [address] [place] [address] Pharmacist Internal Medicine 08/30/23 Roberto Estrada MD 100 [facility] [address] [place] [address] Nephrology 02/18/24 documented as of this encounter
--- OUTSIDE RECORDS SUMMARY | 2024-07-19 06:56 | XMS_ITS | Encounter Summary ---
Author Organization [employer] Address 75 [facility] 7t [place] [address] Care Team Providers Care Maple Products Supervisor Name Role Phone Nikunj Gaviria MD Primary Care Provide r Dixie Adrian PharmD Unavailable [phone] Roberto Estrada MD Unavailable [phone] Reason for Visit * Reason Onset Date Comments Med Refill 03/11/2022 Encounter Details Date Type Department Care Team ([facility] st Contact Info) Description 03/11/2022 Telephone [facility] MEDICINE 230 [place] [address] Nikunj Gaviria MD 230 [place] [address] Med Refill Social History Tobacco Use Types [...] Info) Description 08/28/2024 11:00 AM EDT Telemedicine [facility] CHC MED & PEDS 505 [place] [address] Abigail Lora, RN 505 [place] [address] 08/29/2024 10:15 AM EDT Office Visit [facility] MEDICINE 230 [place] [address] Nikunj Gaviria MD 230 [place] [address] 11/10/2024 10:00 AM EDT Office Visit [facility] OPTOMETRY [address] [place] [address] Jennifer Croft, OD 230 [place] [address] documented as of this encounter Visit Diagnoses Not on filedocumented in this encounter Care Teams Maple Products Supervisor Relationship Specialty Start Date End Date Nikunj Gaviria MD 230 [place] [address] PCP - General Internal Medicine 10/30/13 Dixie Adrian, Judy 230 [place] [address] Pharmacist Internal Medicine 08/30/23 Roberto Estrada MD [address] [facility] 200 [place] [address] Nephrology 02/18/24 documented as of this encounter
--- OUTSIDE RECORDS SUMMARY | 2024-07-19 06:56 | XMS_ITS | Encounter Summary ---
Author Organization [email or web address] Address 75 [facility] 7t [place] [address] Care Team Providers Care Labor Relations Officer Name Role Phone Nikunj Gaviria MD Primary Care Provide r Dixie Adrian PharmD Unavailable [phone] Roberto Estrada MD Unavailable [phone] Reason for Visit * Reason Comments Med Refill Encounter Details Date Type Department Care Team ([facility] st Contact Info) Description 02/04/2024 Refill [facility] MEDICINE 230 [place] [address] Rasheeda Cruz MD 230 [place] [address] Primary insomnia Social History Tobacco Use Types [...] Upcoming Encounters Date Type Department Care Team ([facility] st Contact Info) Description 08/28/2024 11:00 AM EDT Telemedicine [facility] CHC MED & PEDS 505 [place] [address] Abigail Lora RN 505 [place] [address] 08/29/2024 10:15 AM EDT Office Visit [facility] MEDICINE 230 [place] [address] Nikunj Gaviria MD 230 [place] [address] 11/10/2024 10:00 AM EDT Office Visit [facility] OPTOMETRY 267 [place] [address] Jennifer Croft, OD 230 [place] [address] documented as of this encounter Goals Goal [...] documented as of this encounter Care Teams Labor Relations Officer Relationship Specialty Start Date End Date Nikunj Gaviria MD 230 [place] [address] PCP - General Internal Medicine 10/30/13 Dixie Adrian PharmD 230 [place] [address] Pharmacist Internal Medicine 08/30/23 Roberto Estrada MD 100 [facility] [address] [address] Nephrology 02/18/24 documented as of this encounter
--- OUTSIDE RECORDS SUMMARY | 2024-07-19 06:57 | XMS_ITS | Encounter Summary ---
Author Organization [employer] Address 75 [facility] 7t [place] [address] Care Team Providers Care Occupational Health Technician Name Role Phone Nikunj Gaviria MD Primary Care Provide r Dixie Adrian PharmD Unavailable [phone] Roberto Estrada MD Unavailable [phone] Reason for Visit * Reason Onset Date Comments Med Refill 08/10/2023 Encounter Details Date Type Department Care Team (Late st Contact Info) Description 08/10/2023 Telephone [facility] MEDICINE 230 [place] [address] Nikunj Gaviria MD 230 [place], [place] [phone] Med Refill Social History Tobacco Use Types [...] 5-325 MG tablet To be sent to: [facility] Pharmacy documented in this encounter Plan of Treatment Upcoming Encounters Date Type Department Care Team (Late st Contact Info) Description 08/28/2024 11:00 AM EDT Telemedicine [facility] CHC MED & PEDS 505 [place] [address] Abigail Lora, RAFAEL 505 [place] [address] 08/29/2024 10:15 AM EDT Office Visit [facility] MEDICINE 230 [place] [address] Nikunj Gaviria MD 230 [place] [address] 11/10/2024 10:00 AM EDT Office Visit [facility] OPTOMETRY [address] [place] [address] Jennifer Croft OD 230 [place] [address] documented as of this encounter Visit Diagnoses Not on filedocumented in this encounter Additional Health Concerns Assessment Noted Time PHQ-9 Depression Total Score: 0 06/03/19 23 10:07 AM EDT documented as of this encounter Care Teams Occupational Health Technician Relationship Specialty Start Date End Date Nikunj Gaviria MD 230 [place] [address] PCP - General Internal Medicine 10/30/13 Dixie Adrian PharmD 230 [place] [address] Pharmacist Internal Medicine 08/30/23 Roberto Estrada MD 100 [facility] [address] [address] Nephrology 02/18/24 documented as of this encounter
--- OUTSIDE RECORDS SUMMARY | 2024-07-19 06:57 | XMS_ITS | Encounter Summary ---
Author Organization [employer] Address 75 [facility] 7t [place] [address] Care Team Providers Care Oval Or Circular Glass Cutter Name Role Phone Nikunj Gaviria MD Primary Care Provide r Dixie Adrian PharmD Unavailable [phone] Roberto Estrada MD Unavailable [phone] Reason for Visit * Reason Onset Date Comments Med Refill 12/10/2022 Encounter Details Date Type Department Care Team (Late st Contact Info) Description 12/10/2022 Telephone [facility] MEDICINE 230 [place] [address] Nikunj Gaviria MD 230 [place], [place] [phone] Med Refill Social History Tobacco Use Types [...] Info) Description 08/28/2024 11:00 AM EDT Telemedicine [facility] CHC MED & PEDS 505 [place] [address] Abigail Lora, RN 505 [place], [place] [phone] 08/29/2024 10:15 AM EDT Office Visit [facility] MEDICINE 230 [place] [address] Nikunj Gaviria MD 230 [place] [address] 11/10/2024 10:00 AM EDT Office Visit [facility] OPTOMETRY [address] [place] [address] Jennifer Croft, OD 230 [place] [address] documented as of this encounter Visit Diagnoses Not on filedocumented in this encounter Additional Health Concerns Assessment Noted Time PHQ-9 Depression Total Score: 0 06/03/19 23 10:07 AM EDT documented as of this encounter Care Teams Oval Or Circular Glass Cutter Relationship Specialty Start Date End Date Nikunj Gaviria MD 230 [place] [address] PCP - General Internal Medicine 10/30/13 Dixie Adrian PharmD 230 [place] [address] Pharmacist Internal Medicine 08/30/23 Roberto Estrada MD [address] [place] [address] [place] [address] Nephrology 02/18/24 documented as of this encounter
--- OUTSIDE RECORDS SUMMARY | 2024-07-19 06:57 | XMS_ITS | Encounter Summary ---
Author Organization [employer] Address 75 [facility] 7t [place] [address] Care Team Providers Care Modeling Manager Name Role Phone Nikunj Gaviria MD Primary Care Provide r Dixie Adrian PharmD Unavailable [phone] Roberto Estrada MD Unavailable [phone] Reason for Visit * Reason Onset Date Comments Referral 05/04/2023 Encounter Details Date Type Department Care Team ([facility] st Contact Info) Description 05/04/2023 Telephone [facility] MEDICINE 230 [place] [address] Nikunj Gaviria MD 230 [place], [place] [phone] Referral Social History Tobacco Use Types Packs/Day [...] requesting new DATE: N/A TIME: N/A Location: [address] [place] [address] [facility] Type of Specialist: opthalmology If any questions please contact spouse at [phone]. documented in this encounter Plan of Treatment Upcoming Encounters Date Type Department Care Team ([facility] st Contact Info) Description 08/28/2024 11:00 AM EDT Telemedicine [facility] CHC MED & PEDS 505 [place] [address] Abigail Lora, RAFAEL 505 [place] [address] 08/29/2024 10:15 AM EDT Office Visit [facility] MEDICINE 230 [place] [address] Nikunj Gaviria MD 230 [place] [address] 11/10/2024 10:00 AM EDT Office Visit [facility] OPTOMETRY [address] [place] [address] Jennifer Croft, OD 230 [place] [address] documented as of this encounter Visit Diagnoses Diagnosis Primary hypertension Unspecified essential hypertension Type 2 diabetes mellitus with peripheral angiopathy (CMS/HCC) Routine eye exam Examination of eyes and vision documented in this encounter Additional Health Concerns Assessment Noted Time PHQ-9 Depression Total Score: 0 06/03/19 23 10:07 AM EDT documented as of this encounter Care Teams Modeling Manager Relationship Specialty Start Date End Date Nikunj Gaviria MD 230 [place] [address] PCP - General Internal Medicine 10/30/13 Dixie Adrian, HarshilD 230 [place] [address] Pharmacist Internal Medicine 08/30/23 Roberto Estrada MD 100 [facility] 200 [place] [address] Nephrology 02/18/24 documented as of this encounter
--- OUTSIDE RECORDS SUMMARY | 2024-07-19 06:57 | XMS_ITS | Encounter Summary ---
Author Organization [employer] Address 75 [facility] 7t [place] [address] Care Team Providers Care Senior Health Physics Technician Name Role Phone Nikunj Gaviria MD Primary Care Provide r Dixie Adrian PharmD Unavailable [phone] Roberto Estrada MD Unavailable [phone] Reason for Visit * Reason Onset Date Comments Med Refill 11/09/2022 Encounter Details Date Type Department Care Team (Late st Contact Info) Description 11/09/2022 Telephone [facility] MEDICINE 230 [place] [address] Nikunj Gaviria MD 230 [place] [address] Med Refill Social History Tobacco Use Types [...] * Telephone Encounter - Lorraine Lazcano - 11/09/2022 9:37 AM EDT Tc from pt spouse requesting medication refill on oxyCODONE-acetaminophen (Percocet) 5-325 MG tablet documented in this encounter Plan of Treatment Upcoming Encounters Date Type Department Care Team (Late st Contact Info) Description 08/28/2024 11:00 AM EDT Telemedicine [facility] CHC MED & PEDS 505 [place] [address] Abigail Lora, RN 505 [place] [address] 08/29/2024 10:15 AM EDT Office Visit [facility] MEDICINE 230 [place] [address] Nikunj Gaviria MD 230 [place] [address] 11/10/2024 10:00 AM EDT Office Visit [facility] OPTOMETRY 267 [place] [address] Jennifer Croft, OD 230 [place] [address] documented as of this encounter Visit Diagnoses Not on filedocumented in this encounter Additional Health Concerns Assessment Noted Time PHQ-9 Depression Total Score: 0 06/03/19 23 10:07 AM EDT documented as of this encounter Care Teams Senior Health Physics Technician Relationship Specialty Start Date End Date Nikunj Gaviria MD 230 [place] [address] PCP - General Internal Medicine 10/30/13 Dixie Adrian PharmD 230 [place] [address] Pharmacist Internal Medicine 08/30/23 Roberto Estrada MD [address] [place] [address] Nephrology 02/18/24 documented as of this encounter
--- OUTSIDE RECORDS SUMMARY | 2024-07-19 06:57 | XMS_ITS | Clinical Summary ---
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 Myocardial perfusion imaging showed mildly reversible chest wall defect consistent with prior KS. He had question of AV block/pause so metoprolol was decreased from 100mg BID to 50mg BID. In the past he saw Dr layne (backroom associate) at [facility] and underwent a cardiac cath done on [...] Visit [facility] [address] [place] [address] [place] [address] Roberto Estrada MD 2061 [facility] 204 [place] [address] Health Maintenance Due Date Last [...] topic Insurance Medicare Medicaid [place] Medicare Medicaid [place] Care Teams Rotor Coil Taper Relationship Specialty Start Date End Date Nikunj Jacobs MD 230 [place] [address] PCP - General 03/25/20
--- OUTSIDE RECORDS SUMMARY | 2024-07-19 06:57 | XMS_ITS | Encounter Summary ---
Author Organization [employer] Address 75 [facility] 7t [place] [address] Care Team Providers Care Wiring Technician Name Role Phone Nikunj Gaviria MD Primary Care Provide r Dixie Adrian PharmD Unavailable [phone] Roberto Estrada MD Unavailable [phone] Encounter Details Date Type Department Care Team ([facility] st Contact Info) Description 04/20/2023 Telephone [facility] MEDICINE 230 [place] [address] Nikunj Gaviria MD 230 [place] [address] Social History Tobacco Use Types Packs/Day Years [...] 08/28/2024 11:00 AM EDT Telemedicine [facility] CHC MED & PEDS 505 [place] [address] Abigail Lora, RN 505 [place] [address] 08/29/2024 10:15 AM EDT Office Visit [facility] MEDICINE 230 [place] [address] Nikunj Gaviria MD 230 [place] [address] 11/10/2024 10:00 AM EDT Office Visit [facility] OPTOMETRY [address] [place] [address] Lang, Jennifer, OD 230 [place] [address] documented as of this encounter Visit Diagnoses Not on filedocumented in this encounter Additional Health Concerns Assessment Noted Time PHQ-9 Depression Total Score: 0 06/03/19 23 10:07 AM EDT documented as of this encounter Care Teams Wiring Technician Relationship Specialty Start Date End Date Nikunj Gaviria MD [address] [place] [address] PCP - General Internal Medicine 10/30/13 Dixie Adrian PharmD [address] [place] [address] Pharmacist Internal Medicine 08/30/23 Roberto Estrada MD 100 [facility] J[address]NE [address] 200 [place] [address] Nephrology 02/18/24 documented as of this encounter
--- OUTSIDE RECORDS SUMMARY | 2024-07-19 06:57 | XMS_ITS | Encounter Summary ---
Author Organization [employer] Address 75 [facility] 7t [place] [address] Care Team Providers Care Relay Associate Name Role Phone Nikunj Gaviria MD Primary Care Provide r Dixie Adrian PharmD Unavailable [phone] Roberto Estrada MD Unavailable [phone] Reason for Visit * Reason Onset Date Comments Med Refill 09/08/2023 Encounter Details Date Type Department Care Team (Late st Contact Info) Description 09/08/2023 Telephone [facility] MEDICINE 230 [place] [address] Nikunj Gaviria MD 230 [place], [place] [phone] Med Refill Social History Tobacco Use Types [...] 5-325 MG tablet To be sent to: [facility] - [place], [place] - [address] [place] [address] documented in this encounter Plan of Treatment Upcoming Encounters Date Type Department Care Team ([facility] st Contact Info) Description 08/28/2024 11:00 AM EDT Telemedicine [facility] CHC MED & PEDS 505 [place] [address] Abigail Lora, RN 505 [place] [address] 08/29/2024 10:15 AM EDT Office Visit [facility] MEDICINE 230 [place] [address] Nikunj Gaviria MD 230 [place] [address] 11/10/2024 10:00 AM EDT Office Visit [facility] OPTOMETRY 267 [place] [address] Jennifer Croft, OD 230 [place] [address] documented as of this encounter Goals Goal [...] documented as of this encounter Care Teams Relay Associate Relationship Specialty Start Date End Date Nikunj Gaviria MD 230 [place] [address] PCP - General Internal Medicine 10/30/13 Dixie Adrian, PharmD 230 [place] [address] Pharmacist Internal Medicine 08/30/23 Roberto Estrada MD 100 [facility] 200 [place] [address] Nephrology 02/18/24 documented as of this encounter
--- OUTSIDE RECORDS SUMMARY | 2024-07-19 06:57 | XMS_ITS | Encounter Summary ---
Author Organization [employer] Address 75 [facility] 7t [place] [address] Care Team Providers Care Tobacco Primer Machine Operator Name Role Phone Nikunj Gaviria MD Primary Care Provide r Dixie Adrian PharmD Unavailable [phone] Roberto Estrada MD Unavailable [phone] Reason for Visit * Reason Onset Date Comments Med Refill 06/05/2024 Encounter Details Date Type Department Care Team (Late st Contact Info) Description 06/05/2024 Telephone [facility] MEDICINE 230 [place] [address] Nikunj Gaviria MD 230 [place], [place] [phone] Med Refill Social History Tobacco Use Types [...] 5-325 MG tablet To be sent to: [facility] - [place], [place] - [address] [place] [address] documented in this encounter Plan of Treatment Upcoming Encounters Date Type Department Care Team ([facility] st Contact Info) Description 08/28/2024 11:00 AM EDT Telemedicine [facility] CHC MED & PEDS 505 [place] [address] Abigail Lora RN 505 [place] [address] 08/29/2024 10:15 AM EDT Office Visit [facility] MEDICINE 230 [place] [address] Nikunj Gaviria MD 230 [place] [address] 11/10/2024 10:00 AM EDT Office Visit [facility] OPTOMETRY 267 [place] [address] Jennifer Croft, OD 230 [place] [address] documented as of this encounter Goals Goal [...] documented as of this encounter Care Teams Tobacco Primer Machine Operator Relationship Specialty Start Date End Date Nikunj Gaviria MD 230 [place] [address] PCP - General Internal Medicine 10/30/13 Dixie Adrian, PharmD 230 [place] [address] Pharmacist Internal Medicine 08/30/23 Roberto Estrada MD 100 [facility] 200 [place] [address] Nephrology 02/18/24 documented as of this encounter
--- OUTSIDE RECORDS SUMMARY | 2024-07-19 06:57 | XMS_ITS | Encounter Summary ---
Author Organization [employer] Address 75 [facility] 7t [place] [address] Care Team Providers Care Information Clerk Brokerage Name Role Phone Nikunj Gaviria MD Primary Care Provide r Dixie Adrian PharmD Unavailable [phone] Roberto Estrada MD Unavailable [phone] Reason for Visit * Reason Comments Med Refill Encounter Details Date Type Department Care Team ([facility] st Contact Info) Description 07/14/2024 Refill [facility] MEDICINE 230 [place] [address] Nikunj Gaviria MD 230 [place] [address] Essential hypertension Social History Tobacco Use Types Packs/Day Years [...] Info) Description 08/28/2024 11:00 AM EDT Telemedicine [facility] CHC MED & PEDS 505 [place] [address] Abigail Lora, RAFAEL 505 [place] [address] 08/29/2024 10:15 AM EDT Office Visit [facility] MEDICINE 230 [place] [address] Nikunj Gaviria MD 230 [place] [address] 11/10/2024 10:00 AM EDT Office Visit [facility] OPTOMETRY 267 [place] [address] Jennifer Croft, OD 230 [place] [address] documented as of this encounter Goals Goal Patient Goal Type Associated Problems Recent Progress Patient-Stated? Author Keep fasting blood glucose between 70 and 130 Result Component Type 2 diabetes mellitus with diabetic chronic kidney disease On track(08/30/19 24 2:19 PM EDT) No Dixie Adrian, PharmD documented as of this encounter Visit Diagnoses Diagnosis Essential hypertension Unspecified essential hypertension documented in this encounter Additional Health Concerns Assessment Noted Time PHQ-9 Depression Total Score: 0 09/09/19 24 11:04 AM EDT documented as of this encounter Care Teams Information Clerk Brokerage Relationship Specialty Start Date End Date Nikunj Gaviria MD 230 [place] [address] PCP - General Internal Medicine 10/30/13 Dixie Adrian PharmD 230 [place] [address] Pharmacist Internal Medicine 08/30/23 Roberto Estrada MD [address] [address] Nephrology 02/18/24 documented as of this encounter
--- OUTSIDE RECORDS SUMMARY | 2024-07-19 06:57 | XMS_ITS | Encounter Summary ---
Author Organization [employer] Address 75 [facility] 7t [place] [address] Care Team Providers Care Cardiac Monitor Name Role Phone Nikunj Gaviria MD Primary Care Provide r Dixie Adrian PharmD Unavailable [phone] Roberto Estrada MD Unavailable Reason for Visit * Reason Onset Date Comments [facility] 10/11/2023 Encounter Details Date Type Department Care Team ([facility] st Contact Info) Description 10/11/2023 Telephone [facility] MEDICINE 230 [place] [address] Nikunj Gaviria MD 230 [place], [place] [phone] [facility] Social History Tobacco Use Types Packs/Day Years [...] for transportation to tomorrow's appt at the [facility]. Ride is scheduled and pt informed that pt chart will be sent to the referrals department to set up PT1 transportation in the future due to having [employer]. * Telephone Encounter - [place] - 10/11/2023 9:54 AM EDT Tc from pt requesting transportation for the pt appt on 10/14 with HEALTH ADMINISTRATION TEACHER nurse at [facility]. Demographics confirmed documented in this encounter Plan of Treatment Upcoming Encounters Date Type Department Care Team (Late st Contact Info) Description 08/28/2024 11:00 AM EDT Telemedicine [facility] MED & PEDS 505 [place] [address] Abigail Lora, RAFAEL 505 [place] [address] 08/29/2024 10:15 AM EDT Office Visit [facility] MEDICINE 230 [place] [address] Nikunj Gaviria MD 230 [place] [address] 11/10/2024 10:00 AM EDT Office Visit [facility] OPTOMETRY [address] [place] [address] Jennifer Croft, OD 230 [place] [address] documented as of this encounter Goals Goal [...] documented as of this encounter Care Teams Cardiac Monitor Relationship Specialty Start Date End Date Nikunj Gaviria MD 230 [place] [address] PCP - General Internal Medicine 10/30/13 Dixie Adrian, PharmD 230 [place] [address] Pharmacist Internal Medicine 08/30/23 Roberto Estrada MD 100 [facility] 200 [place] [address] Nephrology 02/18/24 documented as of this encounter
[2024-07-19] MEDS: Barium Sulfate Oral (Berry) 450 ML ORAL.SUSP 900 ML PO (09:43)
== END 2024-07-19 06:55 | disposition home or self-care (01) ==
LOC: HO.CT 06:54
PROVIDERS: PCP Internal Medicine; Visit Provider Internal Medicine
DX: R10.31 Right lower quadrant pain (principal)
CPT/HCPCS: 74176

== ENCOUNTER → 2024-07-19 06:56 | Outpatient (BNV) | payer MEDICARE, MEDICAID, SELFPAY | PROVIDERS: PCP Internal Medicine; Visit Provider Radiology Diagnostic Radiology | DX: N28.1 Cyst of kidney, acquired (principal); K57.30 Diverticulosis of large intestine without perforation or abscess without bleeding; I25.10 Atherosclerotic heart disease of native coronary artery without angina pectoris; M47.817 Spondylosis without myelopathy or radiculopathy, lumbosacral region | CPT/HCPCS: 74176 ==

== ENCOUNTER 2024-09-04 11:37 | Outpatient (REF) | payer MEDICARE, MEDICAID, SELFPAY ==
--- NOTE | 2024-08-21 14:23 | PM.PNNEP ---
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
--- NOTE | ~2024-09-04 | US_ITS ---
EXAMINATION: US KIDNEY BILATERAL HISTORY: renal lesions TECHNIQUE: Real-time grayscale ultrasound imaging of the kidneys was performed and images were reviewed. COMPARISON: Comparison is made with the prior examination dated 01/15/2021. FINDINGS: Right kidney: The right kidney measures 11.9 x 6.6 x 5.0 cm. Renal parenchymal echotexture and thickness are normal. Multiple cysts are noted, the largest of which is in the interpolar region measuring 3.6 x 3.6 x 4.3 cm. There is no hydronephrosis or renal calculi. Left Kidney: The left kidney measures 10.0 x 3.8 x 3.8 cm. Renal parenchymal echotexture and thickness are normal. There are no masses. There is a 4 mm calcification in the interpolar cortex. There is no hydronephrosis. US/US renal BI IMPRESSION: Multiple right renal cysts measuring up to 3.6 x 3.6 x 4.3 cm in size. 4 mm left renal calcification. Electronically signed by: Lake Ross MD 09/04/2024 12:12 PM EDT
--- OUTSIDE RECORDS SUMMARY | 2024-09-04 13:15 | XMS_ITS | Encounter Summary ---
Author Organization [employer] Address [address] [place] [address] Care Team Providers Care Hi Ranger Operator Name Role Phone Nikunj Gaviria MD Primary Care Provide r Dixie Adrian PharmD Unavailable [phone] Roberto Estrada MD Unavailable [phone] Reason for Visit * Reason Onset Date Comments Med Refill 09/04/2022 Encounter Details Date Type Department Care Team (Late st Contact Info) Description 09/04/2022 Telephone [facility] [address] [place] [address] Nikunj Gaviria MD [address] [place], [place] [phone] Med Refill Social History Tobacco Use Types [...] on med refill above. Please sent to [facility]/pharmacy #[id number] - [place] - [address] * Telephone Encounter - Veronica Mosley - 09/04/2022 2:21 PM EDT Tc from patient requesting a med refill on medication oxycodone [address] Jacobs documented in this encounter Plan of Treatment Upcoming Encounters Date Type Department Care Team (Late st Contact Info) Description 11/03/2024 9:30 AM EDT Clinical Support [facility] [address] [place] [address] Abigail Lora, RAFAEL [address] [place] [address] 11/28/2024 11:15 AM EDT Office Visit [facility] [address] [place] [address] Nikunj Gaviria MD [address] [place] [address] 12/06/2024 9:30 AM EDT Office Visit [facility] [address] [place] [address] Jennifer Croft, OD [address] [place] [address] documented as of this encounter Visit Diagnoses Not on filedocumented in this encounter Additional Health Concerns Assessment Noted Time PHQ-9 Depression Total Score: 0 06/03/19 10:07 AM EDT documented as of this encounter Care Teams Hi Ranger Operator Relationship Specialty Start Date End Date Nikunj Gaviria MD [address] [place] [address] PCP - General Internal Medicine 10/30/13 Dixie Adrian PharmD [address] [place] [address] Pharmacist Internal Medicine 08/30/23 Roberto Estrada MD [address] [id number] Nephrology 02/18/24 documented as of this encounter
== END 2024-09-04 11:38 | disposition home or self-care (01) ==
LOC: HO.US 11:37
PROVIDERS: PCP Internal Medicine; Visit Provider Internal Medicine
DX: N28.1 Cyst of kidney, acquired (principal)
CPT/HCPCS: 76775

== ENCOUNTER → 2024-09-04 11:45 | Outpatient (BNV) | payer MEDICARE, MEDICAID, SELFPAY | PROVIDERS: PCP Internal Medicine; Visit Provider Radiology Diagnostic Radiology | DX: N28.1 Cyst of kidney, acquired (principal); N20.0 Calculus of kidney | CPT/HCPCS: 76775 ==

== ENCOUNTER 2025-02-07 09:41 | Outpatient (AMB) | payer MEDICARE, MEDICAID, SELFPAY ==
[2025-02-07 09:59] VITALS: BP 144/70; PULSE 65; BMI 31.4
--- NOTE | 2025-02-07 09:59 | A.OFFVIS_ITS ---
Vital Signs 3 02/07/25 09:59 Height 5 ft 10 in Weight 218 lb 11.177 oz BMI 31.4 BP 144/70 H Blood Pressure Location Lt brachial Position Sitting Pulse 65 Intake Visit Reasons: [place] Screening r/s 11/03 Intake Note: New patient in office today for colonoscopy screening. CC: Allergies lisinopril (LISINOPRIL) Allergy (Severe, Verified 02/07/25 10:03) ANGIOEDEMA, tongue swelling adhesive Allergy (Intermediate, Verified 02/07/25 10:03) EKG LEADS BLISTER HPI HPI [place] Screening r/s 11/03: Details: 74-year-old male here for preprocedural meeting to discuss a screening colonoscopy. He is referred by [facility]. PMX Coronary artery disease Bilateral carotid artery atherosclerosis Diabetes Visual field defect Stage IIIB chronic kidney disease Hypertension Insomnia BPH * SURGICAL HISTORY Right endarterectomy Cardiac catheterization EGD Colonoscopy * ALLERGIES Lisinopril * [facility] LABS: none in 2024 TODAY'S VISIT [facility] First colonoscopy: No had a prior many years ago with Dr. Medina he does not remember the results adn the hx is lost to computer conversionis. Bowel or upper GI problems: No Cardiac or respiratory problems: Cardiac well controlled, no respiratory. Dr. Weber Anesthesia or sedation problems:No Infectious disease problems: No Family history:No PFSH Medical History (Updated 02/07/25 @ 10:11 by CARSON Kate) Hyperlipidemia HTN (hypertension) Peripheral vascular disease Carotid artery disease CAD (coronary artery disease) Surgical History (Updated 02/07/25 @ 10:34 by CARSON Kate) Hx laparoscopic cholecystectomy Stented coronary artery Hx of endoscopy Hx of colonoscopy Hx of cardiac cath Family History Father CVD (cardiovascular disease) Mother CVD (cardiovascular disease) Maternal Uncle Prostate cancer Social History Alcohol intake: former Patient Tobacco Use Status: Former Tobacco user Non Cigarette Tobacco use how long: since 1992 Substance Use Type: Marijuana Review of Systems Const Denies fatigue, Denies fever(s), Denies night sweats, Denies poor appetite and Denies weight loss ENT Reports Normal hearing present, Denies dental pain, Denies dysphagia, Denies hearing loss, Denies mouth pain, Denies odynophagia, Denies throat swelling, Denies tongue swelling and Reports other (Dentition adequate) Card Reports no additional complaints Resp Reports no additional complaints GI Details: Denies abdominal pain, Denies melena, Denies bloating, Denies hematochezia, Reports constipation (Only with oxycodone), Denies GI cramping, Denies dysphagia, Denies excessive flatus, Denies early satiety, Denies heartburn, Denies diarrhea, Denies nausea, Denies odynophagia, Denies vomiting and Denies hematemesis Skin/Breast Denies pruritus, Denies lesions, Denies rash and Denies jaundice Neuro Reports Normal hearing present and Denies Abnormal speech present Endo Denies fatigue Aller/Immun Denies throat swelling and Denies tongue swelling Physical Exam Vital Signs: Last Vital Signs Pulse 65 02/07/25 09:59 BP 144/70 H 02/07/25 09:59 BMI result Body Mass Index 31.4 Const General: cooperative, no acute distress, well developed and well groomed Nutritional Appearance: well nourished and obese Orientation/consciousness: oriented to person, oriented to place and oriented to time Limitations: language barrier HEENT Head: Yes normocephalic and Yes atraumatic Eyes General: appearance normal, both eyes and all related structures Pupils: Equal, round and reactive pupils present Neck Neck: Yes normal visual inspection and Yes no lymphadenopathy Thyroid: Thyroid normal Resp Effort & Inspection: normal respiratory effort and able to speak in complete sentences Auscultation: clear to auscultation bilaterally Cardio Rate: regular rate Rhythm: regular rhythm Heart sounds: Normal, physiologic split S2 sound present Peripheral pulses: radial pulses present (Right weaker than left at his baseline) and posterior tibial pulses present GI Inspection: No distended, No Abdominal panniculus present and Yes obesity Palpation (GI): Soft to palpation, nontender, no guarding, not rigid and No hepatosplenomegaly present Percussion: Yes normal to percussion Auscultation: normal bowel sounds Rectal Exam - Male: Yes deferred Abdomen image: 2 1. Surgical scars 2. Skin General skin exam: no rashes or lesions noted, turgor normal, skin not dry, no jaundice, No spider nevi and no striae Rashes: no rashes Nails: normal Neuro General: oriented to person, oriented to place and oriented to time Cranial nerves: Yes Equal, round and reactive pupils present and Yes Normal hearing present Speech: No Abnormal speech present Extrem General: Yes normal to inspection, No clubbing, No cyanosis and No edema Psych Appearance: grossly normal and well kempt Mental Status: mental status grossly normal Speech and movement: Normal speech and movement present Affect: normal affect Attitude: cooperative Thought process: Normal thought process present and not confabulating Thought content: Normal thought content present Insight: Good insight present (Psych) Judgement: Good judgement present (Psych) Assessment & Plan Assessment & Plan (1) Pre-op examination: Code(s): Z01.818 - Encounter for other preprocedural examination Category: Medical Plan [facility] I showed him a Cologuard video since he has no family history and likely no previous polyps to see if he would prefer this as an option but he opts for colonoscopy instead. First colonoscopy: No had a prior many years ago with Dr. Medina he does not remember the results adn the hx is lost to computer conversionis. Bowel or upper GI problems: No Cardiac or respiratory problems: Cardiac well controlled, no respiratory. Dr. Weber Anesthesia or sedation problems:No Infectious disease problems: No Family history:No Orders: Orders 2 Complete Blood Count Auto Diff Today Z01.818 - Encounter for other preprocedural examination Comprehensive Met. Panel Today Z01.818 - Encounter for other preprocedural examination Referrals 2 GI Procedure Notification Z01.818 - Encounter for other preprocedural examination Medications: New 2 sodium,potassium,mag sulfates 17.5-3.13-1.6 gram (Suprep Bowel Prep Kit) 480 mL orally; FOR COLONOSCOPY PREP 354 mL 0RF Coding Level of Care Code New Pt Level 3 (57186) Diagnoses Pre-op examination Z01.818
== END 2025-02-07 10:34 | disposition home or self-care (01) ==
LOC: HO.HGI 09:42
PROVIDERS: PCP Internal Medicine; Visit Provider Nurse Practitioner
DX: Z01.818 Encounter for other preprocedural examination (principal); Z12.11 Encounter for screening for malignant neoplasm of colon
CPT/HCPCS: 99024

== ENCOUNTER 2025-02-07 09:41 | Outpatient (REF) | payer MEDICARE, MEDICAID, SELFPAY ==
[2025-02-07 10:49] LABS: MANUAL DIFF FLAG NO
[2025-02-07 11:05] LABS: Hematocrit 41.7 % (42.0-52.0); Hemoglobin 14.1 g/dl (14.0-18.0); Imm Gran Abs Auto 0.07 X10*3/uL (0.00-0.03); Imm Gran Pct Auto 0.8 % (0.0-0.4); Lymphocytes Absolute Auto 1.9 X10*3/uL (1.2-4.9); Mean Corpuscular HGB Conc 33.8 g/dl (31.0-36.0); Mean Corpuscular Hemoglobin 30.2 pg (27.0-33.0); Mean Corpuscular Volume 89.3 fL (80.0-98.0); NRBC Abs Auto 0.000 X10*3/uL (0.0-0.012); NRBC Pct Auto 0.0 /100WBC (0.0-0.2); Platelet Count 230 X10*3/uL (160-400); Red Blood Count 4.67 X10*6/uL (4.60-5.80); White Blood Count 9.0 X10*3/uL (4.8-10.8)
[2025-02-07 12:05] LABS: Alanine Aminotransferase 19 U/L (0-40); Albumin Level 4.7 g/dL (3.5-5.0); Alkaline Phosphatase 117 U/L (39-117); Anion Gap 13 (12-20); Aspartate Amino Transferase 22 U/L (5-37); Blood Urea Nitrogen 18 mg/dL (9-16); Calcium 9.6 mg/dL (8.4-10.2); Carbon Dioxide 27 mmol/L (22-29); Chloride 105 mmol/L (96-108); Estimated Glomerular Filt Rate 41; Potassium 4.6 mmol/L (3.3-5.1); Sodium 140 mmol/L (135-145); Total Protein 7.9 g/dL (6.5-8.0)
--- OUTSIDE RECORDS SUMMARY | 2025-02-07 12:46 | XMS_ITS | Encounter Summary ---
Author Organization [employer] Address [address] [place] [address] Care Team Providers Care Rug Dry Room Attendant Name Role Phone Nikunj Gaviria MD Primary Care Provide r Dixie Adrian PharmD Unavailable [phone] Roberto Estrada MD Unavailable [phone] Reason for Visit * Reason Onset Date Comments Med Refill 09/04/2022 Encounter Details Date Type Department Care Team (Late st Contact Info) Description 09/04/2022 Telephone [facility] [address] [place] [address] Nikunj Gaviria MD [address] [place], [place] [phone] Med Refill Social History Tobacco Use Types [...] med refill above. Please sent to [facility]/pharmacy #[id number] - [place] - [address] [facility] * Telephone Encounter - Veronica Mosley - 09/04/2022 2:21 PM EDT Tc from patient requesting a med refill on medication oxycodone [address] Jacobs documented in this encounter Plan of Treatment Upcoming Encounters Date Type Department Care Team (Late st Contact Info) Description 03/22/2025 9:15 AM EST Office Visit [facility] [address] [place] [address] Nikunj Gaviria MD [address] [place] [address] 04/16/2025 9:30 AM EST Telemedicine [facility] [address] [place] [address] Abigail Lora, RN [address] [place] [address] 06/06/2025 9:30 AM EDT Office Visit [facility] OPTOMETRY [address] [place] [address] Jennifer Croft, OD [address] [place] [address] documented as of this encounter Visit Diagnoses Not on filedocumented in this encounter Additional Health Concerns Assessment Noted Time PHQ-9 Depression Total Score: 0 06/03/19 10:07 AM EDT documented as of this encounter Care Teams Rug Dry Room Attendant Relationship Specialty Start Date End Date Nikunj Gaviria MD [address] [place] [address] PCP - General Internal Medicine 10/30/13 Dixie Adrian PharmD [address] [place] [address] Pharmacist Internal Medicine 08/30/23 Roberto Estrada MD [address] [phone] Nephrology 02/18/24 documented as of this encounter
--- OUTSIDE RECORDS SUMMARY | 2025-02-07 12:46 | XMS_ITS | Clinical Summary ---
Author Organization [employer] Address [address] [facility] [address] [place] [address] Care Team Providers Care Metallurgy Laboratory Technician Name Role Phone Nikunj Gaviria MD Primary Care Provide r Dixie Adrian PharmD Unavailable [phone] Roberto Estrada MD Unavailable [phone] Allergies Active Allergy Reactions Criticality Noted Date Comments Lisinopril Angioedema 12/14/2013 Medications clotrimazole (Lotrimin) 1 % cream Apply topically [...] as directed Active Blood Glucose Monitoring Suppl (FreeStyle Lite) w/Device kit Test 1 times by intradermal route every day Active Blood Pressure kit Use [address] [facility]. (Non-Drug; Combo Route) route Active metoprolol tartrate (Lopressor) 50 MG tabletIndicatio ns:Primary hypertension TAKE 1 TABLET (50 MG) BY MOUTH 2 TIMES DAILY. TAKE 1 TABLET BY MOUTH TWICE A DAY WITH MEALS 180 tablet 3 04/18/19 25 Active naloxone (Narcan) 4 mg/0.1 mL nasal spray Administer 1 spray (4 mg) into affected nostril(s) if needed for opioid reversal. May repeat every 2-3 minutes if needed, alternating nostrils, until medical assistance becomes available. 2 each 2 08/30/19 25 2025 Active Insulin Degludec FlexTouch 200 UNIT/ML solution pen-injectorInd ications:Type 2 diabetes mellitus with stage 3 chronic kidney disease, with long-term current use of insulin, unspecified whether stage 3a or 3b CKD (HCC) INYECTE 40 UNITS UNDER THE SKIN AL ACOSTARSE 9 mL 3 09/30/19 25 Active atorvastatin (Lipitor) 40 MG tablet TAKE 1 TABLET BY MOUTH AT BEDTIME 90 tablet 2 11/03/19 25 Active Embecta Pen Needle Sandy 32G X 4 MM [facility] [place] USE DIRECTED ONCE DAILY 100 each 11 01/02/20 25 Active insulin syringe-needle U-100 (BD Insulin Syringe U/F) 31G X 5/16 0.5 mL miscIndications :Type 2 diabetes mellitus with stage 3 chronic kidney disease, without long-term current use of insulin, unspecified whether stage 3a or 3b CKD (HCC) USE DAILY INSTRUCTED 60 each 11 01/02/20 25 Active allopurinol (Zyloprim) 300 MG tablet TAKE 1 TABLET BY MOUTH EVERY DAY 90 tablet 1 01/16/20 25 Active oxyCODONE-aceta minophen (Percocet) 5-325 MG tabletIndicatio ns:Pain Take 1 tablet by mouth every 8 (eight) hours if needed for severe pain. 84 tablet 5 5:20 PM EST 01/26/20 25 Active naloxone (Narcan) 4 mg/0.1 mL nasal spray Administer 1 spray (4 mg) into affected nostril(s) if needed for opioid reversal. Thurman 0.1 milliliter by intranasal route in 1 nostril may repeat dose every 2-3 minutes as needed alternating nostrils with each dose 2 each 1 01/26/20 25 Active amLODIPine (Norvasc) 10 MG tabletIndicatio ns:Essential hypertension TAKE 1 TABLET BY MOUTH EVERY DAY 90 tablet 1 02/01/20 25 Active zolpidem (Ambien) 10 MG tabletIndicatio ns:Primary insomnia TAKE 1 TABLET BY MOUTH AT BEDTIME 30 tablet 12:40 PM EST 02/02/20 Active naloxone (Narcan) 4 mg/0.1 mL nasal spray Administer 0.1 mL into affected nostril(s). Thurman 0.1 milliliter by intranasal route in 1 nostril may repeat dose every 2-3 minutes as needed alternating nostrils with each dose 12/10/19 22 2024 Discontinued(R eorder (will not trigger notification to Pharmacy)) allopurinol (Zyloprim) 300 MG tablet TAKE 1 TABLET BY MOUTH EVERY DAY 90 tablet 1 06/16/19 25 2024 Discontinued amLODIPine (Norvasc) 10 MG tabletIndicatio ns:Essential hypertension TAKE 1 TABLET BY MOUTH EVERY DAY 90 tablet 1 10/13/19 25 2024 Discontinued(R eorder (will not trigger notification to Pharmacy)) oxyCODONE-aceta minophen (Percocet) 5-325 MG tabletIndicatio ns:Pain TAKE 1 TABLET BY MOUTH EVERY 8 HOURS NEEDED FOR SEVERE PAIN 84 tablet 12/27/19 25 2024 Discontinued(R eorder (will not trigger notification to Pharmacy)) zolpidem (Ambien) 10 MG tabletIndicatio ns:Primary insomnia Take 1 tablet (10 mg) by mouth at bedtime. 30 tablet 01/06/20 25 2024 Discontinued(R eorder (will not trigger notification to Pharmacy)) Active Problems Problem Noted Date Diagnosed Date Long-term current use of opiate analgesic 2024 Right lower quadrant abdominal pain 05/25/2024 Assessment & Plan (08/29/2024 10:47 AM EDT): Pt here for a follow up Back in May pt presented with c/o new onset of RLQ pain for x 1 month not associated with any other symptoms On this exam, he had tenderness to deep palpation RLQ, no rebound no guarding neg Mcburney, neg espinal. 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 Consider infectious versus noninfectious etiologies. CT report faxed to his Vascular surgeon Dr Dom Cabello Today I contacted his office. His animal care assistant related me a message from him stating that the findings were stable and that there was no need for an urgent appointment that he should follow up with him in October and he would discuss the findings of the CT then As well as Multifocal different sizes cystic lesions, both kidneys. Asymmetric volume loss left kidney. (Under the care of Nephrology now) Diverticular disease, left hemicolon. (Referred to GI has upcoming appointment) Spondylosis L4-5 and L5-S1. Pt today not complaining Assessment & Plan (05/25/2024 10:19 AM EDT): [...] 31.9 in adult 05/04/2023 Assessment & Plan (11/28/2024 11:23 AM EDT): Patient has been counseled and educated about diet and exercise. Personal goal of weight loss discussed Patient has comorbidity of: DM Assessment & Plan (05/04/2023 8:49 AM EST): [...] Preventative health care 06/02/2022 Assessment & Plan (11/28/2024 11:28 AM EDT): PSA: 02/16/2024 Normal Colonoscopy: 2014 ( Pt Dr Yoder ) Has appointment January 2025 Assessment & Plan (05/25/2024 10:00 AM EDT): [...] & Plan (06/02/2022 10:24 AM EDT): Pts truck assembler ordered a carotid doppler 06/08/2019 that showed: [...] a recent CT of brain from his Director Of Cloud Services for c/o visual field defects. CT showed: NO acute CVA. 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 Pt on aggressive risk factor modification. Statin, Plavix Status post percutaneous transluminal coronary a ngioplasty 02/14/2022 Type 2 diabetes mellitus wit h diabetic chronic kidney disease 06/10/2021 Assessment & Plan (11/28/2024 11:22 AM EDT): Pt here for a /u. He is on a regimen of Tresiba 40 units sc q pm. Off Metformin due to CKD Hgb A1c 11/28/2024 : 6.2 Last Eye exam was last done on: 05/12/2024 by [facility]. Previously he was seen [...] Follow up 4 months Assessment & Plan (08/29/2024 10:26 AM EDT): Pt here for a /u. He is on a regimen of Tresiba 40 units sc q pm. Off Metformin due to CKD Hgb A1c 08/29/2024 : 6.7 Last Eye exam was last done on: 05/12/2024 by [facility]. Previously he was seen [...] Follow up 4 months Assessment & Plan (05/25/2024 10:10 AM EDT): Pt here for a /u. He is on a regimen of Tresiba 40 units sc q pm. Off Metformin due to CKD Hgb A1c 05/25/2024 : 6.4 Last Eye exam was last done on: 05/12/2024 by [facility]. Previously he was seen [...] exam was last done on: 12/03/2023 by [facility]. Previously he was seen [...] thy 09/04/2020 Stage 3b chronic kidney disease (CMS/HCC) 2018 Assessment & Plan (05/25/2024 9:52 AM EDT): [...] for an episode of gross hematuria at [facility] on 09/2013 that pt states was due [...] for an episode of gross hematuria at [facility] on 09/2013 that pt states was due [...] mellitus 12/14/2013 Glaucoma 12/14/2013 Coronary atherosclerosis of [place]rokee coronary pavan ry 11/09/2011 Assessment & Plan (08/29/2024 10:28 AM EDT): Pt here for a follow up has CAD, s/p HI with CONTINUITY EDITOR in the past (last in 2007 with stent in 2001). 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 Myocardial perfusion imaging showed mildly reversible chest wall defect consistent with prior HI. He had question of AV block/pause so metoprolol was decreased from 100mg BID to 50mg BID. In the past he saw Dr layne (truck assembler) at [facility] and underwent a cardiac cath done on [...] care of Dr. holley , last note 06/12/2024. Scheduled for stress MIBI Assessment & Plan (05/25/2024 10:08 AM EDT): Pt here for a follow up has CAD, s/p HI with CONTINUITY EDITOR in the past (last in 2007 with stent in 2001). 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 Myocardial perfusion imaging showed mildly reversible chest wall defect consistent with prior HI. He had question of AV block/pause so metoprolol was decreased from 100mg BID to 50mg BID. In the past he saw Dr layne (truck assembler) at [facility] and underwent a cardiac cath done on [...] Pt tells me he was seen in [place] and showed me a card with an appointment for June 12 2024 Assessment & Plan (04/13/2023 9:31 AM EST): Pt has CAD, s/p HI with CONTINUITY EDITOR in the past (last in 2007 with stent in 2001). 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 Myocardial perfusion imaging showed mildly reversible chest wall defect consistent with prior HI. He had question of AV block/pause so metoprolol was decreased from 100mg BID to 50mg BID. In the past he saw Dr layen (truck assembler) at [facility] and underwent a cardiac cath done on [...] 9:47 AM EDT): Pt has CAD, s/p HI with CONTINUITY EDITOR in the past (last in 2007 with stent in 2001). 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 Myocardial perfusion imaging showed mildly reversible chest wall defect consistent with prior HI. He had question of AV block/pause so metoprolol was decreased from 100mg BID to 50mg BID. In the past he saw Dr layne (truck assembler) at [facility] and underwent a cardiac cath done on [...] 10:25 AM EDT): Pt has CAD, s/p HI with CONTINUITY EDITOR in the past (last in 2007 with stent in 2001). 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 Myocardial perfusion imaging showed mildly reversible chest wall defect consistent with prior HI. He had question of AV block/pause so metoprolol was decreased from 100mg BID to 50mg BID. In the past he saw Dr layne (truck assembler) at [facility] and underwent a cardiac cath done on [...] 06/08/2022 Depressive disorder 11/09/2011 History of alcoholism ([facility]/HCC) 11/09/2011 Assessment & Plan (11/28/2024 11:22 AM EDT): Continues to be sober for many years Assessment & Plan (05/04/2023 8:48 AM EST): Continues to be sober for many years Assessment & Plan (10/01/2022 9:27 AM EDT): Sober for many years Peripheral vascular disease 11/09/2011 Assessment & Plan (01/20/2024 8:52 AM EST): Pt here for follow up. Pt with generalized atherosclerotic vascular disease. Used to be under the care of Na Mcfarland NP/Dr Rodríguez at [facility] Vascular surgery (vascular surgeon), Last note from [...] care of Na Mcfarland NP/Dr Rodríguez at [facility] Vascular surgery (vascular surgeon), Last note from [...] care of Na Mcfarland NP/Dr Rodríguez at [facility] Vascular surgery (vascular surgeon), Last note from [...] care of Na Mcfarland NP/Dr Rodríguez at [facility] Vascular surgery (vascular surgeon), Last note from [...] be under the care of Na Mcfarland DEDICATED OWNER OPERATOR/Dr Rodríguez at [facility] Vascular surgery (vascular surgeon), Last note from [...] of Atorvastatin 40mg po qhs (switched by truck assembler and Fish oil 1000mg po TID. For [...] of Atorvastatin 40mg po qhs (switched by truck assembler and Fish oil 1000mg po TID. For [...] of Atorvastatin 40mg po qhs (switched by truck assembler and Fish oil 1000mg po TID. For [...] HCTZ OFF Cozaar. and OFF Lisinopril Dr Estraad warned him about the use of diuretics [...] Encounters Date Type Department Care Team Description 02/01/2025 Refill [facility] [address] [place] [address] Nikunj Gaviria MD Primary insomnia 01/31/2025 Refill [facility] [address] [facility] [place] [address] Nikunj Gaviria MD Essential hypertension 01/29/2025 9:30 AM EST Telemedicine [facility] [address] [facility] [place] [address] Abigail Lora, RAFAEL Long-term current use of opiate analgesic 01/29/2025 Travel 01/24/2025 Refill [facility] [address] [facility] [place] [address] Abigail Lora, RAFAEL Pain 01/24/2025 Telephone [facility] [address] [facility] [place] [address] Nikunj Gaviria MD Med Refill 01/15/2025 Telephone [facility] [address] [place] [address] Nikunj Gaviria MD Med Refill 01/13/2025 Refill [facility] [address] [place] [address] Nikunj Gaviria MD 01/06/2025 Telephone [facility] [address] [place] [address] Nikunj Gaviria MD Itz recall 01/04/2025 Refill [facility] [address] [facility] [place] [address] Nikunj Gaviria MD Primary insomnia 01/03/2025 Refill [facility] [address] [facility] [place] [address] Nikunj Gaviria MD Primary insomnia 01/03/2025 Refill [facility] [address] [facility] [place] [address] Nikunj Gaviria MD Primary insomnia 01/02/2025 3:15 PM EDT Office Visit [facility] [address] [place] [address] Jennifer Croft, OD Hyperopia of both eyes (Primary Dx) 01/02/2025 Outside Procedure [facility] [address] [facility] [place] [address] Jennifer Croft, OD Presbyopia (Primary Dx) 01/01/2025 Refill [facility] [address] [facility] [place] [address] Nikunj Gaviria MD Type 2 diabetes mellitus with stage 3 chronic kidney disease, without long-term current use of insulin, unspecified whether stage 3a or 3b CKD (HCC) 12/29/2024 Refill [facility] [address] [facility] [place] [address] Joan Coreas MD 12/26/2024 Refill [facility] [address] [place] [address] Nikunj Gaviria MD Pain 12/08/2024 9:30 AM EDT Immunization [facility] [address] [place] [address] Angie Longoria RN Encounter for immunization 12/08/2024 Travel 12/06/2024 9:30 AM EDT Office Visit [facility] [address] [place] [address] Jennifer Croft, OD Diabetes type 2, no ocular involvement (CMS/HCC) (Primary Dx); Glaucoma suspect of both eyes; Combined forms of age-related cataract of both eyes; 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; Presbyopia 12/06/2024 Travel 12/05/2024 Telephone [facility] [address] [place] [address] Kirill, Kindra, RN Appointment Request 12/04/2024 Refill [facility] [address] [place] [address] Nikunj Gaviria MD Primary insomnia 11/28/2024 11:15 AM EDT Office Visit [facility] [address] [place] [id number] Nikunj Gaviria MD Type 2 diabetes mellitus with stage 3a chronic kidney disease, with long-term current use of insulin ([facility]) (Primary Dx); History of alcoholism ([facility]); Class 1 obesity due to excess calories with serious comorbidity and body mass index (BMI) of 31.0 to 31.9 in adult; Dietary counseling; Exercise counseling; Pain; Preventative health care 11/28/2024 Travel 11/27/2024 Telephone [facility] [address] [place] [id number] Nikunj Gaviria MD chart prep from Last 3 Months Immunizations Immunization Administration Dates Next Due Influenza High-dose Quadriva lent Preservative Free 01/12/2023,01/13/2022 Influenza injectable quadriv alent IIV4 with preservative 02/01/2018 Influenza injectable quadriv alent preservative free 01/05/2019,04/11/2015 Influenza, High Dose Seasona l, Preservative Free 12/08/2024,01/20/2024 Influenza, IIV3, injectable 01/13/2022, 4,12/15/2006 Influenza, Split [...] Date Recorded Patient Health Questionnaire-9 Score 0 11/28/2024 Patient Health Questionnaire-9 Score 0 11/28/2024 Last PHQ-9: Questionnaire Data Not on file 0 11/28/2024 Housing Stability Answer Date Recorded What is [...] Date Recorded Patient Health Questionnaire-2 Score 0 11/28/2024 Internet Access Answer Date Recorded Internet Access [...] Sign Reading Time Taken Comments Blood Pressure 139/60 11/28/2024 10:33 AM EDT Pulse 64 11/28/2024 10:33 AM EDT Temperature 36.4 C (97.6 F) 11/28/2024 10:33 AM EDT Respiratory Rate 18 11/28/2024 10:33 AM EDT Oxygen Saturation 99% 11/28/2024 10:33 AM EDT Inhaled Oxygen Concentration - - Weight 96.8 kg (213 lb 6.4 oz) 11/28/2024 10:33 AM EDT Height 175.3 cm (5' 9 ) 11/28/2024 10:33 AM EDT Body Mass Index 31.51 11/28/2024 10:33 AM EDT Plan of Treatment Upcoming Encounters Date Type Department Care Team (Late st Contact Info) Description 03/22/2025 9:15 AM EST Office Visit [facility] [address] [place] [address] Nikunj Gaviria MD [address] [place] [address] 04/16/2025 9:30 AM EST Telemedicine [facility] [address], [place] [phone] Abigail Lora, RAFAEL [address] [place] [address] 06/06/2025 9:30 AM EDT Office Visit [facility] [address] [place] [address] Jennifer Croft, OD [address] [place] [address] Health Maintenance Due Date Last Done Comments Diabetes: Foot Exam 1958 Alcohol/Substance Use Screening 1960 Zoster Vaccines (2 of 3) 09/26/2015 08/01/2015 Pneumococcal Vaccine: 50+ Years (3 of 3 - PCV20 or PCV21) 07/31/2020 08/01/2015, 08/09/2002 RSV Patients and Patients Aged 60 years or older (1 - 1-dose 75+ series) 06/10/2023 COVID-19 Vaccine ( season) 2024 02/19/2021, 05/30/2020, 05/02/2020 Lipid Panel 02/08/2025 02/09/2024, 03/17, 06/16/2022, Additional history exists Diabetes: Hemoglobin A1C 02/27/2025 025, 08/29/2024, 05/25/2024, Additional history exists SDOH Screening 05/15/2025 05/15/2024 Depression Screening 11/28/2025 11/28/2024, 11/29/19 Eye Exam 12/06/2025 12/06/2024, 11/14, 12/06/2024, Additional history exists Tobacco Screening 12/07/2025 12/07/2024 DTaP/Tdap/Td Vaccines (3 - Td or Tdap) 10/29/2031 10/28/2021, 02/11/2012, 08/09/2002 Hepatitis C Screening Completed 01/14/2022 Influenza Vaccine Completed 12/08/2024, , 01/12/2023, Additional history exists HIB Vaccines Aged Out [...] patient's age to complete this topic Meningococcal B Vaccine Aged Out No l onger eligible based on patient's age to complete [...] mellitus with diabetic chronic kidney disease On track( 024 2:19 PM EDT) Dixie Zabala, PharmD Help patients manage their type 2 diabetes Care Plan Help patients manage their type 2 diabetes No Ned Chiu Weekly blood pressure task Care Plan Weekly blood pressure task No Ned Chiu Help patients manage their type 2 diabetes Care Plan Help patients manage their type 2 diabetes No Ned Chiu Patient has diabetic eye disease Care Plan Patient has diabetic eye disease No Ned Chiu Help patients manage their type 2 diabetes Care Plan Help patients manage their type 2 diabetes No Ned Chiu Patient has chronic kidney disease Care Plan Patient has chronic kidney disease No Ned Chiu Weekly blood pressure task Care Plan Weekly blood pressure task No Ned Chiu Weekly blood pressure task Care Plan Weekly blood pressure task No Ned Chiu Patient has diabetic eye disease Care Plan Patient has diabetic eye disease No Ned Chiu Patient has diabetic eye disease Care Plan Patient has diabetic eye disease No Ned Chiu Patient has chronic kidney disease Care Plan Patient has chronic kidney disease No Ned Chiu Patient has chronic kidney disease Care Plan Patient has chronic kidney disease No Ned Chiu Weekly blood pressure task Care Plan Weekly blood pressure task No Abigail Lora RN Weekly blood pressure task Care Plan Weekly blood pressure task No Abigail Lora RN Weekly blood pressure task Care Plan Weekly blood pressure task No Abigail Lora RN Patient has diabetic eye disease Care Plan Patient has diabetic eye disease No Abigail Lora RN Patient has diabetic eye disease Care Plan Patient has diabetic eye disease No Abigail Lora RN Patient has diabetic eye disease Care Plan Patient has diabetic eye disease No Abigail Lora RN Patient has chronic kidney disease Care Plan Patient has chronic kidney disease No Abigail Lora RN Patient has chronic kidney disease Care Plan Patient has chronic kidney disease No Abigail Lora RN Patient has chronic kidney disease Care Plan Patient has chronic kidney disease No Abigail Lora RN Weekly blood pressure task Care Plan Weekly blood pressure task No Abigail Lora RN Weekly blood pressure task Care Plan Weekly blood pressure task No Abigail Lora RN Weekly blood pressure task Care Plan Weekly blood pressure task No Abigail Lora RN Patient has diabetic eye disease Care Plan Patient has diabetic eye disease No Abigail Lora RN Patient has diabetic eye disease Care Plan Patient has diabetic eye disease No Abigail Lora RN Patient has diabetic eye disease Care Plan Patient has diabetic eye disease No Abigail Lora RN Patient has chronic kidney disease Care Plan Patient has chronic kidney disease No Abigail Lora RN Patient has chronic kidney disease Care Plan Patient has chronic kidney disease No Abigail Lora RN Patient has chronic kidney disease Care Plan Patient has chronic kidney disease No Abigail Lora RN Weekly blood pressure task Care Plan Weekly blood pressure task No Carly Agarwal Weekly blood pressure task Care Plan Weekly blood pressure task No Carly Agarwal Weekly blood pressure task Care Plan Weekly blood pressure task No Stefano Alejandrojose miguel Patient has diabetic eye disease Care Plan Patient has diabetic eye disease No Carly Agarwal Patient has diabetic eye disease Care Plan Patient has diabetic eye disease No Carly Agarwal Patient has diabetic eye disease Care Plan Patient has diabetic eye disease No Carly Agarwal Patient has chronic kidney disease Care Plan Patient has chronic kidney disease No Carly Agarwal Patient has chronic kidney disease Care Plan Patient has chronic kidney disease No Carly Agarwal Patient has chronic kidney disease Care Plan Patient has chronic kidney disease No Carly Agarwal Weekly blood pressure task Care Plan Weekly blood pressure task No Nola Parks LPN Weekly blood pressure task Care Plan Weekly blood pressure task No Nola Parks LPN Weekly blood pressure task Care Plan Weekly blood pressure task No Nola Parks LPN Patient has diabetic eye disease Care Plan Patient has diabetic eye disease No Nola Parks LPN Patient has diabetic eye disease Care Plan Patient has diabetic eye disease No Nola Parks LPN Patient has diabetic eye disease Care Plan Patient has diabetic eye disease No Nola Parks LPN Patient has chronic kidney disease Care Plan Patient has chronic kidney disease No Nola Parks LPN Patient has chronic kidney disease Care Plan Patient has chronic kidney disease No Nola Parks LPN Patient has chronic kidney disease Care Plan Patient has chronic kidney disease No Nola Parks LPN Procedures Procedure Name Priority Date/Time Associated Diagnosis Comments COMPREHENSIVE METABOLIC PANEL Routine 02/07/2025 10:47 AM EST CBC WITH AUTO DIFFERENTIAL Routine 02/07/2025 10:47 AM EST OCT, OPTIC NERVE - OU - BOTH EYES Routine 12/06/2024 9:30 AM EDT Glaucoma suspect of both eyes POCT GLYCATED HEMOGLOBIN, TOTAL Routine 11/28/2024 10:34 AM EDT Type 2 diabetes mellitus with stage 3a chronic kidney disease, with long-term current use of insulin (CMS/HCC) POCT GLUCOSE Routine 11/28/2024 10:34 AM EDT Type 2 diabetes mellitus with stage 3a chronic kidney disease, with long-term current use of insulin (CMS/HCC) LIPID PANEL, STANDARD Routine 02/09/2024 9:14 AM EST Type 2 diabetes mellitus with peripheral angiopathy (CMS/HCC) ZZZ HISTORICAL HEPATITIS C AB W/REFL TO HCV RNA, QN, PCR Routine 01/14/2022 8:39 AM EDT from Last 3 Months or Most Recently Relevant to Health Maintenance Results * (ABNORMAL) CBC auto differential (02/07/2025 10:47 AM EST) White Blood Count 9.0 4.8 - 10.8 X10*3/uL [facility] Red Blood Count 4.67 4.60 - 5.80 X10*6/uL [facility] Hemoglobin 14.1 14.0 - 18.0 g/dl [facility] Hematocrit 41.7(L) 42.0 - 52.0 % [facility] Mean Corpuscular Volume 89.3 80.0 - 98.0 fL [facility] Mean Corpuscular Hemoglobin 30.2 27.0 - 33.0 pg [facility] Mean Corpuscular HGB Conc 33.8 31.0 - 36.0 g/dl [facility] Red Cell Distribution Width 13.4 11.0 - 16.0 % [facility] Platelet Count 230 160 - 400 X10*3/uL [facility] Mean Platelet Volume 9.3(L) 9.4 - 12.4 fL [facility] Neutrophils Percent Auto 67.4 45 - 73 % [facility] Imm Gran Pct Auto 0.8(H) 0.0 - 0.4 % [facility] Lymphocytes Percent Auto 21.0 20 - 40 % [facility] Monocytes Percent Auto 7.7 2 - 11 % [facility] Eosinophils Percent Auto 2.8 0 - 4 % [facility] Basophils Percent Auto 0.3 0 - 2 % [facility] NRBC Pct Auto 0.0 0.0 - 0.2 /100WBC [facility] Neutrophils Absolute Auto 6.0 2.0 - 8.3 x10*3/uL [facility] Imm Gran Abs Auto 0.07(H) 0.00 - 0.03 X10*3/uL [facility] Lymphocytes Absolute Auto 1.9 1.2 - 4.9 X10*3/uL [facility] Monocytes Absolute Auto 0.7 0.1 - 1.2 X10*3/uL [facility] Eosinophils Absolute Auto 0.3 0.0 - 0.4 X10*3/uL [facility] Basophils Absolute Auto 0.0 0.0 - 0.2 X10*3/uL [facility] NRBC Abs Auto 0.000 0.0 - 0.012 X10*3/uL [facility] 02/07/2025 10:4 7 AM EST 02/07/2025 10:47 AM EST us Generic External Data Provider LAB BLOOD ORDERAB LES Final Result [facility] [address] [place] [phone] [phone] * (ABNORMAL) Comprehensive Metabolic Panel (02/07/2025 10:47 AM EST) Sodium 140 135 - 145 mmol/L [facility] Potassium 4.6 3.3 - 5.1 mmol/L [facility] Chloride 105 96 - 108 mmol/L [facility] Carbon Dioxide 27 22 - 29 mmol/L [facility] Anion Gap 13 12 - 20 [facility] Urea Nitrogen (BUN) 18(H) 9 - 16 mg/dL [facility] Creatinine, Serum 1.65(H) 0.5 - 1.4 mg/dL [facility] Estimated Glomerular Filt Rate 41 [facility] Comment:Chronic Kidney Disea se: Estimated GFR < 60 mL/min/1.58r3Igjjxe Kidney Disease: Estimated GFR < 15 mL/min/1.73m2 Glucose 87 60 - 115 mg/dL [facility] Calcium 9.6 8.4 - 10.2 mg/dL [facility] Bilirubin, Total 0.7 0.0 - 1.0 mg/dL [facility] Aspartate Amino Transferase 22 5 - 37 U/L [facility] Alanine Aminotransferase 19 0 - 40 U/L [facility] Total Protein 7.9 6.5 - 8.0 g/dL [facility] Albumin Level 4.7 3.5 - 5.0 g/dL [facility] Alkaline Phosphatase 117 39 - 117 U/L [facility] 02/07/2025 10:4 7 AM EST 02/07/2025 10:47 AM EST us Generic External Data Provider LAB BLOOD ORDERAB LES Final Result [facility] [address] [place] [phone] * OCT, Optic Nerve - OU - Both Eyes (12/06/2024 9:30 AM EDT) Jennifer Turk, OD - 12/08/2024 2:35 PM EDT Images from the original result were not included. OCT OPTIC NERVE INTERPRETATION Optical Coherence Tomography Interpretation Report Test Details: Measurements: OD OS C/D Horizontal 0.72 0.74 C/D Vertical 0.65 0.73 Disc area 2.71 mm 2 3.15 mm 2 RNFL Average 96 microns 109 microns Test findings: OD: Borderline RNFL thinning in nasal quadrant, normal RNFL thickness in all other quadrants OS: Normal RNFL thickness 360 degrees Impression and Plan: Right: 9 micron decrease in average RNFL thickness compared to 10/2023 Left: no RNFL loss compared to 10/2023 No treatment is indicated at this time. Will have him return in 6 months for an updated Visual Field test. us Jennifer Croft OD OPHTH TOMOGRAPHY Final Result * (ABNORMAL) POCT Hgb A1c (11/28/2024 10:34 AM EDT) Hemoglobin A1C 6.2(A) 4.0 - 5.7 % QC Media Lot # [id number] Lot# Expiration Date [id number] Blood 11/28/2024 10:3 4 AM EDT Nikunj Wright MD POINT OF CARE TEST EN TER/EDIT ORDERABLES Final Result * POCT Glucose (11/28/2024 10:34 AM EDT) Glucose Blood, POC 158 60 - 200 mg/dL Comment:random QC Media Lot # [id number] Lot# Expiration Date [id number] Blood Capillary blood specimen / Unknown 11/28/2024 10:34 AM EDT Nikunj Wright MD POINT OF CARE TEST EN TER/EDIT ORDERABLES Final Result * (ABNORMAL) Lipid Panel, Standard (02/09/2024 9:14 AM EST) Triglycerides 107 <150 mg/dL [facility] Comment:Desirable Triglyceri de: less than 150 mg/dLBorderline High Triglyceride 150-199 mg/dLHigh Triglyceride: 200-499 mg/dLVery High Triglyceride: greater than or equal to 5OO mg/dL Cholesterol 95 <200 mg/dL [facility] Comment:Desirable Cholestero l: less than 200 mg/dLBorderline High Cholesterol: 200-239 mg/dLHigh Cholesterol: greater than 239 mg/dL LDL Cholesterol Calculated 35 <100 mg/dL [facility] Comment:Desirable LDL: less than 100 mg/dLNear Optimal/Above Optimal LDL: 110- 129 mg/dLBorderline High LDL: 130-159 mg/dLHigh LDL: 160-189 mg/dLVery High LDL: greater than or equal to 190 mg/dL HDL Cholesterol 39(L) >40 mg/dL [facility] Comment:Desirable HDL: great er than 40 mg/dL Note: This HDL assay may give artificially low results in patients with liver disease. Blood Venous blood specimen / Unknown 02/09/2024 9:14 AM EST 02/09/2024 11:17 AM EST Nikunj Wright MD LAB BLOOD ORDERABLES Final Result [facility] [address] [place] [phone] * HEPATITIS C AB W/REFL TO HCV RNA, QN, PCR (01/14/2022 8:39 AM EDT) HEPATITIS C ANTIBODY NON-REACTI VE NON-REACT [facility] INDEX 0.07 <1.00 [facility] Comment: HCV antibody was non-reactive. There is no laboratory evidence of HCV infection. In most cases, no further action is required. However, if recent HCV exposure is suspected, a test for HCV RNA (test code 12993) is suggested. For additional information please refer to http://education.Klipfolio.Property Owl/faq/YVE15a3 (This link is being provided for informational/ educational purposes only.) 01/14/2022 8:39 AM EDT Nikunj Wright MD HISTORICAL/NON ORDERA BLE LABS Final Result [facility] from Last 3 Months or Most Recently Relevant to Health Maintenance Additional Health Concerns Active Problems Noted Date Diagnosed Date Help patients manage their type 2 diabetes 01/24 Weekly blood pressure task 01/24/2025 Help patients manage their type 2 diabetes 01/24 Patient has diabetic eye disease 01/24/2025 Help patients manage their type 2 diabetes 01/24 Patient has chronic kidney disease 01/24/2025 Weekly blood pressure task 01/24/2025 Weekly blood pressure task 01/24/2025 Patient has diabetic eye disease 01/24/2025 Patient has diabetic eye disease 01/24/2025 Patient has chronic kidney disease 01/24/2025 Patient has chronic kidney disease 01/24/2025 Weekly blood pressure task 01/24/2025 Weekly blood pressure task 01/24/2025 Weekly blood pressure task 01/24/2025 Patient has diabetic eye disease 01/24/2025 Patient has diabetic eye disease 01/24/2025 Patient has diabetic eye disease 01/24/2025 Patient has chronic kidney disease 01/24/2025 Patient has chronic kidney disease 01/24/2025 Patient has chronic kidney disease 01/24/2025 Weekly blood pressure task 01/29/2025 Weekly blood pressure task 01/29/2025 Weekly blood pressure task 01/29/2025 Patient has diabetic eye disease 01/29/2025 Patient has diabetic eye disease 01/29/2025 Patient has diabetic eye disease 01/29/2025 Patient has chronic kidney disease 01/29/2025 Patient has chronic kidney disease 01/29/2025 Patient has chronic kidney disease 01/29/2025 Weekly blood pressure task 01/31/2025 Weekly blood pressure task 01/31/2025 Weekly blood pressure task 01/31/2025 Patient has diabetic eye disease 01/31/2025 Patient has diabetic eye disease 01/31/2025 Patient has diabetic eye disease 01/31/2025 Patient has chronic kidney disease 01/31/2025 Patient has chronic kidney disease 01/31/2025 Patient has chronic kidney disease 01/31/2025 Weekly blood pressure task 02/01/2025 Weekly blood pressure task 02/01/2025 Weekly blood pressure task 02/01/2025 Patient has diabetic eye disease 02/01/2025 Patient has diabetic eye disease 02/01/2025 Patient has diabetic eye disease 02/01/2025 Patient has chronic kidney disease 02/01/2025 Patient has chronic kidney disease 02/01/2025 Patient has chronic kidney disease 02/01/2025 Insurance 5 [place] [address] [facility] [employer] MEDICARE Care Teams Metallurgy Laboratory Technician Relationship Specialty Start Date End Date Nikunj Gaviria MD 230 [place], [place] PCP - General Internal Medicine 10/30/13 Dixie Adrian PharmD 230 [place], [place] Pharmacist Internal Medicine 08/30/23 Roberto Estrada MD [address] [phone] Nephrology 02/18/24
--- OUTSIDE RECORDS SUMMARY | 2025-02-07 12:46 | XMS_ITS | Encounter Summary ---
Author Organization [employer] Address 75 [facility] 7t [place] [address] Care Team Providers Care Supervisor Plasma Name Role Phone Nikunj Gaviria MD Primary Care Provide r Dixie Adrian PharmD Unavailable [phone] Roberto Estrada MD Unavailable [phone] Reason for Visit * Reason Comments Med Refill Encounter Details Date Type Department Care Team ([facility] st Contact Info) Description 02/04/2024 Refill [facility] MEDICINE 230 [place] [address] Rasheeda Cruz MD 230 [place] [address] Primary insomnia Social History Tobacco Use Types [...] Description 03/22/2025 9:15 AM EST Office Visit [facility] MEDICINE 230 [place] [address] Nikunj Gaviria MD 230 [place] [address] 04/16/2025 9:30 AM EST Telemedicine [facility] MED [facility] PEDS [address] [place] [address] Abigail Lora, RN 505 [place] [address] 06/06/2025 9:30 AM EDT Office Visit [facility] OPTOMETRY [address] [place] [address] Jennifer Croft, OD 230 [place] [address] documented as of this encounter Goals Goal [...] as of this encounter Care Teams Supervisor Plasma Relationship Specialty Start Date End Date Nikunj Gaviria MD 230 [place] [address] PCP - General Internal Medicine 10/30/13 Dixie Adrian PharmD 230 [place] [address] Pharmacist Internal Medicine 08/30/23 Roberto Estrada MD [address] [phone] Nephrology 02/18/24 documented as of this encounter
--- OUTSIDE RECORDS SUMMARY | 2025-02-07 12:47 | XMS_ITS | Encounter Summary ---
Author Organization [employer] Address 75 [facility] 7t [place] [address] Care Team Providers Care Clinic Manager Name Role Phone Nikunj Gaviria MD Primary Care Provide r Dixie Adrian PharmD Unavailable [phone] Roberto Estrada MD Unavailable [phone] Reason for Visit * Reason Onset Date Comments Med Refill 01/15/2025 Encounter Details Date Type Department Care Team (Late st Contact Info) Description 01/15/2025 Telephone [facility] MEDICINE 230 [place] [address] Nikunj Gaviria MD 230 [place], [place] [phone] Med Refill Social History Tobacco Use Types Packs/Day Years Used Date Smoking Tobacco: Never Passive Smoke Exposure: Never Smokeless Tobacco: Never Depression Answer Date Recorded Patient Health Questionnaire-9 Score 0 11/28/2024 Patient Health Questionnaire-9 Score 0 11/28/2024 Last PHQ-9: Questionnaire Data Not on file 0 11/28/2024 Housing Stability Answer Date Recorded What is your housing situation today? I have serenadominguez dee 09/09/[address] you [...] encounter Miscellaneous Notes * Telephone Encounter - Nola Parks LPN - 01/15/2025 11:53 AM EST Medication pended to PCP. * Telephone Encounter - Otilio Agarwal - 01/15/2025 11:49 AM EST TC from pt requesting medication refill. Medications needing refill: allopurinol (Zyloprim) 300 MG tablet To be sent to: [facility] - [place], [place] - [address] [place] [address] documented in this encounter Plan of Treatment Upcoming Encounters Date Type Department Care Team ([facility] st Contact Info) Description 03/22/2025 9:15 AM EST Office Visit [facility] MEDICINE 230 [place] [address] Nikunj Gaviria MD 230 [place] [address] 04/16/2025 9:30 AM EST Telemedicine [facility] CHC MED & PEDS [address] [place] [address] Abigail Lora, RAFAEL 505 [place] [address] 06/06/2025 9:30 AM EDT Office Visit [facility] OPTOMETRY [address] [place] [address] Lang Jennifer, OD 230 [place] [address] documented as of this encounter Goals Goal [...] Noted Time PHQ-9 Depression Total Score: 0 11/29/19 10:38 AM EDT documented as of this encounter Care Teams Clinic Manager Relationship Specialty Start Date End Date Nikunj Gaviria MD 230 [place] [address] PCP - General Internal Medicine 10/30/13 Dixie Adrian, PharmD 230 [place] [address] Pharmacist Internal Medicine 08/30/23 Roberto Estrada MD 100 [facility] 200 [place] [address] Nephrology 02/18/24 documented as of this encounter
--- OUTSIDE RECORDS SUMMARY | 2025-02-07 12:47 | XMS_ITS | Encounter Summary ---
Author Organization [employer] Address 75 [facility] 7t [place] [address] Care Team Providers Care Hired Worker Name Role Phone Nikunj Gaviria MD Primary Care Provide r Dixie Adrian PharmD Unavailable [phone] Roberto Estrada MD Unavailable [phone] Reason for Visit * Reason Onset Date Comments Med Refill 11/05/2023 Encounter Details Date Type Department Care Team (Late st Contact Info) Description 11/05/2023 Telephone [facility] MEDICINE 230 [place] [address] Nikunj Gaviria MD 230 [place], [place] [phone] Med Refill Social History Tobacco Use Types [...] 5-325 MG tablet To be sent to: [facility]acy documented in this encounter Plan of Treatment Upcoming Encounters Date Type Department Care Team (Late st Contact Info) Description 03/22/2025 9:15 AM EST Office Visit [facility] MEDICINE [address] [place] [address] Nikunj Gaviria MD 230 [place] [address] 04/16/2025 9:30 AM EST Telemedicine [facility] CHC MED & PEDS 505 [place] [address] Abigail Lora, RAFAEL 505 [place] [address] 06/06/2025 9:30 AM EDT Office Visit [facility] OPTOMETRY [address] [place] [address] Jennifer Croft, OD 230 [place] [address] documented as of this encounter Goals Goal Patient Goal Type Associated Problems Recent Progress Patient-Stated? Author Keep fasting blood glucose between 70 and 130 Result Component Type 2 diabetes mellitus with diabetic chronic kidney disease On track(08/30/19 2:19 PM EDT) No Dixie Adrian, Judy documented as of this encounter Visit Diagnoses Not on filedocumented in this encounter Additional Health Concerns Assessment Noted Time PHQ-9 Depression Total Score: 0 09/09/19 11:04 AM EDT documented as of this encounter Care Teams Hired Worker Relationship Specialty Start Date End Date Nikunj Gaviria MD 230 [place] [address] PCP - General Internal Medicine 10/30/13 Dixie Adrian, PharmD 230 [place] [address] Pharmacist Internal Medicine 08/30/23 Roberto Estrada MD 100 [facility] 200 [place] [address] Nephrology 02/18/24 documented as of this encounter
--- OUTSIDE RECORDS SUMMARY | 2025-02-07 12:47 | XMS_ITS | Encounter Summary ---
Author Organization [employer] Address [address] [place] [address] 7t [place] [address] Care Team Providers Care Referral Specialist Name Role Phone Nikunj Gaviria MD Primary Care Provide r Dixie Adrian PharmD Unavailable [phone] Roberto Estrada MD Unavailable [phone] Reason for Visit * Reason Onset Date Comments Med Refill 11/09/2022 Encounter Details Date Type Department Care Team (Late st Contact Info) Description 11/09/2022 Telephone [facility] MEDICINE 230 [place] [address] Nikunj Gaviria MD 230 [place] [address] Med Refill Social History Tobacco Use Types [...] Description 03/22/2025 9:15 AM EST Office Visit [facility] MEDICINE 230 [place] [address] Nikunj Gaviria MD 230 [place] [address] 04/16/2025 9:30 AM EST Telemedicine [facility] CHC MED & PEDS 505 [place] [address] Abigail Lora, RN 505 [place] [address] 06/06/2025 9:30 AM EDT Office Visit [facility] OPTOMETRY [address] [place] [address] Jennifer Croft, OD 230 [place] [address] documented as of this encounter Visit Diagnoses Not on filedocumented in this encounter Additional Health Concerns Assessment Noted Time PHQ-9 Depression Total Score: 0 06/03/19 23 10:07 AM EDT documented as of this encounter Care Teams Referral Specialist Relationship Specialty Start Date End Date Nikunj Gaviria MD 230 [place] [address] PCP - General Internal Medicine 10/30/13 Dixie Adrian PharmD [address] [place] [address] Pharmacist Internal Medicine 08/30/23 Roberto Estrada MD 100 [facility] 200 [place] [address] Nephrology 02/18/24 documented as of this encounter
--- OUTSIDE RECORDS SUMMARY | 2025-02-07 12:47 | XMS_ITS | Encounter Summary ---
Author Organization [employer] Address 75 [facility] 7t [place] [address] Care Team Providers Care Java Front End Web Developer Name Role Phone Nikunj Gaviria MD Primary Care Provide r Dixie Adrian PharmD Unavailable [phone] Roberto Estrada MD Unavailable [phone] Encounter Details Date Type Department Care Team ([facility] st Contact Info) Description 04/20/2023 Telephone [facility] MEDICINE 230 [place] [address] Nikunj Gaviria MD 230 [place] [address] Social History Tobacco Use Types Packs/Day Years [...] Description 03/22/2025 9:15 AM EST Office Visit [facility] MEDICINE 230 [place] [address] Nikunj Gaviria MD 230 [place] [address] 04/16/2025 9:30 AM EST Telemedicine [facility] CHC MED & PEDS 505 [place] [address] Abigail Lora, RN 505 [place] [address] 06/06/2025 9:30 AM EDT Office Visit [facility] OPTOMETRY [address] [place] [address] Lang, Jennifer, OD 230 [place] [address] documented as of this encounter Visit Diagnoses Not on filedocumented in this encounter Additional Health Concerns Assessment Noted Time PHQ-9 Depression Total Score: 0 06/03/19 23 10:07 AM EDT documented as of this encounter Care Teams Java Front End Web Developer Relationship Specialty Start Date End Date Nikunj Gaviria MD [address] [place] [address] PCP - General Internal Medicine 10/30/13 Dixie Adrian PharmD [address] [place] [address] Pharmacist Internal Medicine 08/30/23 Roberto Estrada MD 100 [facility] 200 [place] [phone] Nephrology 02/18/24 documented as of this encounter
--- OUTSIDE RECORDS SUMMARY | 2025-02-07 12:47 | XMS_ITS | Encounter Summary ---
Author Organization [employer] Address 75 [facility] 7t [place] [address] Care Team Providers Care Quality Project Manager Name Role Phone Nikunj Gaviria MD Primary Care Provide r Dixie Adrian PharmD Unavailable [phone] Roberto Estrada MD Unavailable [phone] Reason for Visit * Reason Comments Med Refill Encounter Details Date Type Department Care Team ([facility] st Contact Info) Description 11/08/2023 Refill [facility] MEDICINE 230 [place] [address] Tatyana Jc, ANP 230 [place] [address] Pain Social History Tobacco Use Types Packs/Day [...] Description 03/22/2025 9:15 AM EST Office Visit [facility] MEDICINE 230 [place] [address] Nikunj Gaviria MD 230 [place] [address] 04/16/2025 9:30 AM EST Telemedicine [facility] CHC MED & PEDS 505 [place], [place] [phone] Abigail Lora, RN 505 [place] [address] 06/06/2025 9:30 AM EDT Office Visit [facility] OPTOMETRY [address] [place] [address] Jennifer Croft, MATT 230 [place] [address] documented as of this encounter Goals Goal [...] documented as of this encounter Care Teams Quality Project Manager Relationship Specialty Start Date End Date Nikunj Gaviria MD 230 [place] [address] PCP - General Internal Medicine 10/30/13 Dixie Adrian PharmD 230 [place] [address] Pharmacist Internal Medicine 08/30/23 Roberto Estrada MD [address] [address] Nephrology 02/18/24 documented as of this encounter
--- OUTSIDE RECORDS SUMMARY | 2025-02-07 12:47 | XMS_ITS | Encounter Summary ---
Author Organization [employer] Address 75 [facility] 7t [place] [address] Care Team Providers Care Orchestra Musician Name Role Phone Nikunj Gaviria MD Primary Care Provide r Dixie Adrian PharmD Unavailable [phone] Roberto Estrada MD Unavailable [phone] Reason for Visit * Reason Comments Med Refill Encounter Details Date Type Department Care Team ([facility] st Contact Info) Description 09/11/2024 Refill [facility] MEDICINE 230 [place] [address] Nikunj Gaviria MD 230 [place] [address] Primary insomnia Social History Tobacco Use Types [...] Description 03/22/2025 9:15 AM EST Office Visit [facility] MEDICINE 230 [place] [address] Nikunj Gaviria MD 230 [place] [address] 04/16/2025 9:30 AM EST Telemedicine [facility] CHC MED & PEDS 505 [place] [address] Abigail Lora, RN 505 [place] [address] 06/06/2025 9:30 AM EDT Office Visit [facility] OPTOMETRY [address] [place] [address] Jennifer Croft, OD 230 [place] [address] documented as of this encounter Goals Goal [...] documented as of this encounter Care Teams Orchestra Musician Relationship Specialty Start Date End Date Nikunj Gaviria MD 230 [place] [address] PCP - General Internal Medicine 10/30/13 Dixie Adrian PharmD 230 [place] [address] Pharmacist Internal Medicine 08/30/23 Roberto Estrada MD 100 [facility] 200 [place] [address] Nephrology 02/18/24 documented as of this encounter
--- OUTSIDE RECORDS SUMMARY | 2025-02-07 12:47 | XMS_ITS | Encounter Summary ---
Author Organization [employer] Address 75 [facility] 7t [place] [address] Care Team Providers Care Cinder Pitman Name Role Phone Nikunj Gaviria MD Primary Care Provide r Dixie Adrian PharmD Unavailable [phone] Roberto Estrada MD Unavailable [phone] Reason for Visit * Reason Onset Date Comments Med Refill 03/11/2022 Encounter Details Date Type Department Care Team ([facility] st Contact Info) Description 03/11/2022 Telephone [facility] MEDICINE 230 [place] [address] Nikunj Gaviria MD 230 [place] [address] Med Refill Social History Tobacco Use Types [...] Description 03/22/2025 9:15 AM EST Office Visit [facility] MEDICINE 230 [place] [address] Nikunj Gaviria MD 230 [place] [address] 04/16/2025 9:30 AM EST Telemedicine [facility]C MED & PEDS 505 [place] [address] Abigail Lora, RAFAEL 505 [place] [address] 06/06/2025 9:30 AM EDT Office Visit [facility] OPTOMETRY [address] [place] [address] Jennifer Croft, OD 230 [place] [address] documented as of this encounter Visit Diagnoses Not on filedocumented in this encounter Care Teams Cinder Pitman Relationship Specialty Start Date End Date Nikunj Gaviria MD [address] [place] [address] PCP - General Internal Medicine 10/30/13 Dixie Adrian, HarshilD [address] [place] [address] Pharmacist Internal Medicine 08/30/23 Roberto Estrada MD [address] [facility] 200 [place] [address] Nephrology 02/18/24 documented as of this encounter
--- OUTSIDE RECORDS SUMMARY | 2025-02-07 12:47 | XMS_ITS | Encounter Summary ---
Author Organization [employer] Address 75 [facility] 7t [place] [address] Care Team Providers Care Steel Pourer Name Role Phone Nikunj Gaviria MD Primary Care Provide r Dixie Adrian PharmD Unavailable [phone] Roberto Estrada MD Unavailable [phone] Reason for Visit * Reason Onset Date Comments Med Refill 01/06/2024 Encounter Details Date Type Department Care Team (Late st Contact Info) Description 01/06/2024 Refill [facility] MEDICINE 230 [place] [address] Nikunj Gaviria MD 230 [place] [address] Pain Social History Tobacco Use Types Packs/Day [...] 5-325 MG tablet To be sent to: [facility] - [place], [place] - [address] [place] [address] documented in this encounter Plan of Treatment Upcoming Encounters Date Type Department Care Team ([facility] st Contact Info) Description 03/22/2025 9:15 AM EST Office Visit [facility] MEDICINE 230 [place] [address] Nikunj Gaviria MD 230 [place] [address] 04/16/2025 9:30 AM EST Telemedicine [facility] CHC MED & PEDS 505 [place] [address] Abigail Lora, RAFAEL 505 [place] [address] 06/06/2025 9:30 AM EDT Office Visit [facility] OPTOMETRY [address] [place] [address] Jennifer Croft, MATT 230 [place] [address] documented as of this encounter Goals Goal [...] documented as of this encounter Care Teams Steel Pourer Relationship Specialty Start Date End Date Nikunj Gaviria MD 230 [place] [address] PCP - General Internal Medicine 10/30/13 Dixie Adrian, PharmD 230 [place] [address] Pharmacist Internal Medicine 08/30/23 Roberto Estrada MD 100 [facility] 200 [place] [address] Nephrology 02/18/24 documented as of this encounter
--- OUTSIDE RECORDS SUMMARY | 2025-02-07 12:47 | XMS_ITS | Encounter Summary ---
Author Organization [employer] Address 75 [facility] 7t [place] [address] Care Team Providers Care Bow Maker Custom Name Role Phone Nikunj Gaviria MD Primary Care Provide r Dixie Adrian PharmD Unavailable [phone] Roberto Estrada MD Unavailable [phone] Reason for Visit * Reason Onset Date Comments Med Refill 12/10/2022 Encounter Details Date Type Department Care Team (Late st Contact Info) Description 12/10/2022 Telephone [facility] MEDICINE 230 [place] [address] Nikunj Gaviria MD 230 [place], [place] [phone] Med Refill Social History Tobacco Use Types [...] Description 03/22/2025 9:15 AM EST Office Visit [facility] MEDICINE 230 [place] [address] Nikunj Gaviria MD 230 [place] [address] 04/16/2025 9:30 AM EST Telemedicine [facility] CHC MED & PEDS 505 [place] [address] Abigail Lora, RAFAEL 505 [place] [address] 06/06/2025 9:30 AM EDT Office Visit [facility] OPTOMETRY 267 [place] [address] Jennifer Croft, OD 230 [place] [address] documented as of this encounter Visit Diagnoses Not on filedocumented in this encounter Additional Health Concerns Assessment Noted Time PHQ-9 Depression Total Score: 0 06/03/19 23 10:07 AM EDT documented as of this encounter Care Teams Bow Maker Custom Relationship Specialty Start Date End Date Nikunj Gaviria MD 230 [place] [address] PCP - General Internal Medicine 10/30/13 Dixie Adrian PharmD [address] [place] [address] Pharmacist Internal Medicine 08/30/23 Roberto Estrada MD [address] [place] [address] [place] [address] Nephrology 02/18/24 documented as of this encounter
--- OUTSIDE RECORDS SUMMARY | 2025-02-07 12:47 | XMS_ITS | Encounter Summary ---
Author Organization [employer] Address 75 [facility] 7t [place] [address] Care Team Providers Care Caterer'S Aide Name Role Phone Nikunj Gaviria MD Primary Care Provide r Dixie Adrian PharmD Unavailable [phone] Roberto Estrada MD Unavailable Reason for Visit * Reason Onset Date Comments Med Refill 09/08/2023 Encounter Details Date Type Department Care Team (Late st Contact Info) Description 09/08/2023 Telephone [facility] MEDICINE 230 [place] [address] Nikunj Gaviria MD 230 [place], [place] [phone] Med Refill Social History Tobacco Use Types [...] AM EDT documented as of this encounter Functional Status * Over the past 2 weeks, how often have you been bothered by any of the following problems? Question Answer Date of Assessment Author Patient Health Questionnaire-2 Score 0 09/09/2023 11:04 AM EDT Brigette Dewitt MA * Over the past 2 weeks, how often have you been bothered by any of the following problems? Question Answer Date of Assessment Author Little interest or pleasure in doing things Not at all 09/09/2023 11:04 AM Brigette Beltran MA Feeling down, depressed, or hopeless Not at all 09/09/2023 11:04 AM EDT Brigette Stevenson MA Trouble falling or staying asleep, or sleeping too much Not at all 09/09/2023 11:04 AM EDT Brigette Hernandez MA Feeling tired or having little energy Not at all 09/09/2023 11:04 AM LISETT Brigette Stevenson MA Poor appetite or overeating Not at all 09/09/2023 11 :04 AM LISETT Brigette Stevenson MA Feeling bad about yourself - or that you are a failure or have let yourself or your family down Not at all 09/09/2023 11:04 AM Brigette Beltran MA Trouble concentrating on things, such as reading the newspaper or watching television Not at all 09/09/2023 11:04 AM EDT Brigette Stevenson MA Moving or speaking so slowly that other people could have noticed? Or the opposite - being so fidgety or restless that you have been moving around a lot more than usual. Not at all 09/09/2023 11:04 AM EDT Brigette Soares MA Thoughts that you would be better off or hurting yourself in some way Not at all 09/09/2023 11:04 AM EDT Brigette Stevenson MA Patient Health Questionnaire-9 Score 0 09/09/2023 11:04 AM EDT Brigette Dewitt MA documented as of this encounter Miscellaneous Notes * Telephone Encounter - Lorraine Lazcano - 09/08/2023 9:31 AM EDT TC from pt requesting medication refill. Medications needing refill : oxyCODONE-acetaminophen (Percocet) 5-325 MG tablet To be sent to: [facility] - [place], [place] - [address] [place] [address] documented in this encounter Plan of Treatment Upcoming Encounters Date Type Department Care Team ([facility] st Contact Info) Description 03/22/2025 9:15 AM EST Office Visit [facility] MEDICINE 230 [place] [address] Nikunj Gaviria MD 230 [place] [address] 04/16/2025 9:30 AM EST Telemedicine [facility] CHC MED & PEDS 505 [place] [address] Abigail Lora, RAFAEL 505 [place] [address] 06/06/2025 9:30 AM EDT Office Visit [facility] OPTOMETRY [address] [place] [address] Jennifer Croft, OD 230 [place] [address] documented as of this encounter Goals Goal Patient Goal Type Associated Problems Recent Progress Patient-Stated? Author Keep fasting blood glucose between 70 and 130 Result Component Type 2 diabetes mellitus with diabetic chronic kidney disease On track(08/30/19 24 2:19 PM EDT) No Dixie Adrian, Judy documented as of this encounter Visit Diagnoses Not on filedocumented in this encounter Additional Health Concerns Assessment Noted Time PHQ-9 Depression Total Score: 0 06/03/19 23 10:07 AM EDT documented as of this encounter Care Teams Caterer'S Aide Relationship Specialty Start Date End Date Nikunj Gaviria MD 230 [place] [address] PCP - General Internal Medicine 10/30/13 Dixie Adrian, Judy 230 [place] [address] Pharmacist Internal Medicine 08/30/23 Roberto Estrada MD [address] [address] Nephrology 02/18/24 documented as of this encounter
--- OUTSIDE RECORDS SUMMARY | 2025-02-07 12:47 | XMS_ITS | Encounter Summary ---
Author Organization [employer] Address 75 [facility] 7t [place] [address] Care Team Providers Care Cork Cutter Name Role Phone Nikunj Gaviria MD Primary Care Provide r Dixie Adrian PharmD Unavailable [phone] Roberto Estrada MD Unavailable [phone] Reason for Visit * Reason Comments Med Refill Encounter Details Date Type Department Care Team ([facility] st Contact Info) Description 01/03/2025 Refill [facility] MEDICINE 230 [place] [address] Nikunj Gaviria MD 230 [place] [address] Primary insomnia Social History Tobacco Use Types [...] Description 03/22/2025 9:15 AM EST Office Visit [facility] MEDICINE 230 [place] [address] Nikunj Gaviria MD 230 [place] [address] 04/16/2025 9:30 AM EST Telemedicine [facility] CHC MED & PEDS 505 [place] [address] Abigail Lora, RN 505 [place] [address] 06/06/2025 9:30 AM EDT Office Visit [facility] OPTOMETRY [address] [place] [address] Jennifer Croft, OD 230 [place] [address] documented as of this encounter Goals Goal [...] Time PHQ-9 Depression Total Score: 0 11/29/19 25 10:38 AM EDT documented as of this encounter Care Teams Cork Cutter Relationship Specialty Start Date End Date Nikunj Gaviria MD 230 [place] [address] PCP - General Internal Medicine 10/30/13 Dixie Adrian PharmD 230 [place] [address] Pharmacist Internal Medicine 08/30/23 Roberto Estrada MD 100 [facility] 200 [place] [address] Nephrology 02/18/24 documented as of this encounter
--- OUTSIDE RECORDS SUMMARY | 2025-02-07 12:47 | XMS_ITS | Encounter Summary ---
Author Organization [employer] Address 75 [facility] 7t [place] [address] Care Team Providers Care Strip Tank Tender Name Role Phone Nikunj Gaviria MD Primary Care Provide r Dixie Adrian PharmD Unavailable [phone] Roberto Estrada MD Unavailable [phone] Reason for Visit * Reason Onset Date Comments Med Refill 08/10/2024 Encounter Details Date Type Department Care Team (Late st Contact Info) Description 08/10/2024 Telephone [facility] MEDICINE 230 [place], [place] [phone] Nikunj Gaviria MD 230 [place], [place] [phone] Med Refill Social History Tobacco Use Types [...] Telephone Encounter - Nola Parks LPN - 08/10/2024 11:49 AM EDT Medication pended to PCP for approval. * Telephone Encounter - Griselda Momin - 08/10/2024 11:47 AM EDT TC from pt requesting medication refill. Medications needing refill : zolpidem (Ambien) 10 MG tablet To be sent to: [facility] - [place], [place] - [address] [place] [address] documented in this encounter Plan of Treatment Upcoming Encounters Date Type Department Care Team ([facility] st Contact Info) Description 03/22/2025 9:15 AM EST Office Visit [facility] MEDICINE 230 [place] [address] Nikunj Gaviria MD 230 [place] [address] 04/16/2025 9:30 AM EST Telemedicine [facility] CHC MED & PEDS 505 [place] [address] Abigail Lora, RN 505 [place] [address] 06/06/2025 9:30 AM EDT Office Visit [facility] OPTOMETRY [address] [place] [address] Jennifer Croft, OD 230 [place] [address] documented as of this encounter Goals Goal [...] documented as of this encounter Care Teams Strip Tank Tender Relationship Specialty Start Date End Date Nikunj Gaviria MD 230 [place] [address] PCP - General Internal Medicine 10/30/13 Dixie Adrian, PharmD 230 [place] [address] Pharmacist Internal Medicine 08/30/23 Roberto Estrada MD 100 [facility] 200 [place] [address] Nephrology 02/18/24 documented as of this encounter
--- OUTSIDE RECORDS SUMMARY | 2025-02-07 12:47 | XMS_ITS | Encounter Summary ---
Author Organization [employer] Address 75 [facility] 7t [place] [address] Care Team Providers Care Javascript Web Developer Name Role Phone Nikunj Gaviria MD Primary Care Provide r Dixie Adrian PharmD Unavailable [phone] Roberto Estrada MD Unavailable [phone] Reason for Visit * Reason Onset Date Comments Med Refill 01/24/2025 Encounter Details Date Type Department Care Team (Late st Contact Info) Description 01/24/2025 Telephone [facility] MEDICINE 230 [place] [address] Nikunj Gaviria MD 230 [place], [place] [phone] Med Refill Social History Tobacco Use Types [...] encounter Miscellaneous Notes * Telephone Encounter - Ned Levi - 01/24/2025 9:17 AM EST TC from pt requesting medication refill. Medications needing refill : oxyCODONE-acetaminophen (Percocet) 5-325 MG tablet To be sent to: [facility] documented in this encounter Plan of Treatment Upcoming Encounters Date Type Department Care Team ([facility] st Contact Info) Description 03/22/2025 9:15 AM EST Office Visit [facility] MEDICINE 230 [place] [address] Nikunj Gaviria MD 230 [place] [address] 04/16/2025 9:30 AM EST Telemedicine [facility] CHC MED & PEDS 505 [place] [address] Abigail Lora, RAFAEL 505 [place] [address] 06/06/2025 9:30 AM EDT Office Visit [facility] OPTOMETRY 267 [place] [address] Jennifer Croft, OD 230 [place] [address] documented as of this encounter Goals Goal Patient Goal Type Associated Problems Recent Progress Patient-Stated? 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 No Ned Nunez Help patients manage their type 2 diabetes Care Plan Help patients manage their type 2 diabetes No Ned Nunez Patient has chronic kidney disease Care Plan Patient has chronic kidney disease No Ned Nunez Weekly blood pressure task Care Plan Weekly blood pressure task No Ned Nunez Weekly blood pressure task Care Plan Weekly blood pressure task No Ned Nunez Patient has diabetic eye disease Care Plan Patient has diabetic eye disease No Ned Nunez Patient has diabetic eye disease Care Plan Patient has diabetic eye disease No Ned Nunez Patient has chronic kidney disease Care Plan Patient has chronic kidney disease No Ned Nunez Patient has chronic kidney disease Care Plan Patient has chronic kidney disease No Ned Nunez Weekly blood pressure task Care Plan Weekly [...] chronic kidney disease No Abigail Lora RN documented as of this encounter Visit Diagnoses Not on filedocumented in this encounter Additional Health Concerns Active Problems Noted Date [...] 01/24/2025 Patient has chronic kidney disease 01/24/2025 Assessment Noted Time PHQ-9 Depression Total Score: 0 11/29/19 25 10:38 AM EDT documented as of this encounter Care Teams Javascript Web Developer Relationship Specialty Start Date End Date Nikunj Gaviria MD 230 [place] [address] PCP - General Internal Medicine 10/30/13 Dixie Adrian PharmD 230 [place] [address] Pharmacist Internal Medicine 08/30/23 Roberto Estrada MD [address] [facility] [place] [address] [place] [address] Nephrology 02/18/24 documented as of this encounter
--- OUTSIDE RECORDS SUMMARY | 2025-02-07 12:47 | XMS_ITS | Encounter Summary ---
Author Organization [employer] Address 75 [facility] 7t [place] [address] Care Team Providers Care Boat Patcher Plastic Name Role Phone Nikunj Gaviria MD Primary Care Provide r Dixie Adrian PharmD Unavailable [phone] Roberto Estrada MD Unavailable [phone] Reason for Visit * Reason Onset Date Comments Med Refill 08/10/2023 Encounter Details Date Type Department Care Team (Late st Contact Info) Description 08/10/2023 Telephone [facility] MEDICINE 230 [place], [place] [phone] Nikunj Gaviria MD 230 [place], [place] [phone] Med Refill Social History Tobacco Use Types [...] 5-325 MG tablet To be sent to: [facility] documented in this encounter Plan of Treatment Upcoming Encounters Date Type Department Care Team (Late st Contact Info) Description 03/22/2025 9:15 AM EST Office Visit [facility] MEDICINE [address] [place] [address] Nikunj Gaviria MD 230 [place] [address] 04/16/2025 9:30 AM EST Telemedicine [facility] CHC MED & PEDS 505 [place] [address] Abigail Lora RN 505 [place] [address] 06/06/2025 9:30 AM EDT Office Visit [facility] OPTOMETRY 267 [place] [address] Jennifer Croft, OD 230 [place] [address] documented as of this encounter Visit Diagnoses Not on filedocumented in this encounter Additional Health Concerns Assessment Noted Time PHQ-9 Depression Total Score: 0 06/03/19 23 10:07 AM EDT documented as of this encounter Care Teams Boat Patcher Plastic Relationship Specialty Start Date End Date Nikunj Gaviria MD 230 [place] [address] PCP - General Internal Medicine 10/30/13 Dixie Adrian PharmD 230 [place] [address] Pharmacist Internal Medicine 08/30/23 Roberto Estrada MD 100 [facility] [address] [address] Nephrology 02/18/24 documented as of this encounter
--- OUTSIDE RECORDS SUMMARY | 2025-02-07 12:47 | XMS_ITS | Encounter Summary ---
Author Organization [employer] Address 75 [facility] 7t [place] [address] Care Team Providers Care Sanitary Plumber Name Role Phone Nikunj Gaviria MD Primary Care Provide r Dixie Adrian PharmD Unavailable [phone] Roberto Estrada MD Unavailable [phone] Reason for Visit * Reason Onset Date Comments [facility] 10/11/2023 Encounter Details Date Type Department Care Team ([facility] st Contact Info) Description 10/11/2023 Telephone [facility] MEDICINE 230 [place], [place] [phone] Nikunj Gaviria MD 230 [place], [place] [phone] [facility] Social History Tobacco Use Types Packs/Day Years [...] for transportation to tomorrow's appt at the [facility]. Ride is scheduled and pt informed that pt chart will be sent to the referrals department to set up PT1 transportation in the future due to having [employer] [facility]. * Telephone Encounter - Chula Oneal - 10/11/2023 9:54 AM EDT Tc from pt requesting transportation for the pt appt on 10/14 with BILLET HEATER OPERATOR nurse at [facility]. Demographics confirmed documented in this encounter Plan of Treatment Upcoming Encounters Date Type Department Care Team (Late st Contact Info) Description 03/22/2025 9:15 AM EST Office Visit [facility] MEDICINE 230 [place] [address] Nikunj Gaviria MD 230 [place] [address] 04/16/2025 9:30 AM EST Telemedicine [facility] MED & PEDS 505 [place] [address] Abigail Lora, RN [address] [place] [address] 06/06/2025 9:30 AM EDT Office Visit [facility] OPTOMETRY [address] [place] [address] Lang, Jennifer, OD 230 [place] [address] documented as of this encounter Goals Goal Patient Goal Type Associated Problems Recent Progress Patient-Stated? Author Keep fasting blood glucose between 70 and 130 Result Component Type 2 diabetes mellitus with diabetic chronic kidney disease On track(08/30/19 2:19 PM EDT) No Dixie Adrian, HarshilD documented as of this encounter Visit Diagnoses Not on filedocumented in this encounter Additional Health Concerns Assessment Noted Time PHQ-9 Depression Total Score: 0 09/09/19 11:04 AM EDT documented as of this encounter Care Teams Sanitary Plumber Relationship Specialty Start Date End Date Nikunj Gaviria MD 230 [place] [address] PCP - General Internal Medicine 10/30/13 Dixie Adrian, PharmD 230 [place] [address] Pharmacist Internal Medicine 08/30/23 Roberto Estrada MD [address] [facility] 200 [place] [address] Nephrology 02/18/24 documented as of this encounter
--- OUTSIDE RECORDS SUMMARY | 2025-02-07 12:47 | XMS_ITS | Encounter Summary ---
Author Organization [employer] Address 75 [facility] 7t [place] [address] Care Team Providers Care Roller Leveler Operator Name Role Phone Nikunj Gaviria MD Primary Care Provide r Dixie Adrian PharmD Unavailable [phone] Roberto Estrada MD Unavailable [phone] Reason for Visit * Reason Onset Date Comments Med Refill 06/05/2024 Encounter Details Date Type Department Care Team (Late st Contact Info) Description 06/05/2024 Telephone [facility] MEDICINE 230 [place] [address] Nikunj Gaviria MD 230 [place], [place] [phone] Med Refill Social History Tobacco Use Types [...] 5-325 MG tablet To be sent to: [facility] - [place], [place] - [address] [place] [address] documented in this encounter Plan of Treatment Upcoming Encounters Date Type Department Care Team ([facility] st Contact Info) Description 03/22/2025 9:15 AM EST Office Visit [facility] MEDICINE 230 [place] [address] Nikunj Gaviria MD 230 [place] [address] 04/16/2025 9:30 AM EST Telemedicine [facility] CHC MED & PEDS 505 [place] [address] Abigail Lora, RAFAEL 505 [place] [address] 06/06/2025 9:30 AM EDT Office Visit [facility] OPTOMETRY 267 [place] [address] Jennifer Croft, OD 230 [place] [address] documented as of this encounter Goals Goal [...] documented as of this encounter Care Teams Roller Leveler Operator Relationship Specialty Start Date End Date Nikunj Gaviria MD 230 [place] [address] PCP - General Internal Medicine 10/30/13 Dixie Adrian, PharmD 230 [place] [address] Pharmacist Internal Medicine 08/30/23 Roberto Estrada MD 100 [facility] 200 [place] [address] Nephrology 02/18/24 documented as of this encounter
--- OUTSIDE RECORDS SUMMARY | 2025-02-07 12:47 | XMS_ITS | Encounter Summary ---
Author Organization [email or web address] Address [address] [facility] 7t [place] [address] Care Team Providers Care Web Search Evaluator Name Role Phone Nikunj Gaviria MD Primary Care Provide r Dixie Adrian PharmD Unavailable [phone] Roberto Estrada MD Unavailable [phone] Reason for Visit * Reason Comments Med Refill Encounter Details Date Type Department Care Team ([facility] st Contact Info) Description 12/05/2023 Refill [facility] [address] [place] [address] Nikujn Gaviria MD [address] [place] [address] Primary insomnia Social History Tobacco Use Types [...] Description 03/22/2025 9:15 AM EST Office Visit [facility] [address] [place] [address] Nikunj Gaviria MD [address] [place] [address] 04/16/2025 9:30 AM EST Telemedicine [facility] [address] [place] [address] Abigail Lora, RN [address] [place] [address] 06/06/2025 9:30 AM EDT Office Visit [facility] [address] [place] [address] Jennifer Croft, OD [address] [place] [address] documented as of this encounter Goals Goal [...] documented as of this encounter Care Teams Web Search Evaluator Relationship Specialty Start Date End Date Nikunj Gaviria MD [address] [place] [address] PCP - General Internal Medicine 10/30/13 Dixie Adrian PharmD [address] [place] [address] Pharmacist Internal Medicine 08/30/23 Roberto Estrada MD [address] [facility] [address] [place] [address] Nephrology 02/18/24 documented as of this encounter
--- OUTSIDE RECORDS SUMMARY | 2025-02-07 12:47 | XMS_ITS | Encounter Summary ---
Author Organization [employer] Address [address] [facility] 7t [place] [address] Care Team Providers Care Hand Coper Name Role Phone Nikunj Gaviria MD Primary Care Provide r Dixie Adrian PharmD Unavailable [phone] Roberto Estrada MD Unavailable [phone] Reason for Visit * Reason Onset Date Comments Med Refill 10/31/2024 Encounter Details Date Type Department Care Team (Late st Contact Info) Description 10/31/2024 Telephone [facility] MEDICINE [address] [place] [address] Nikunj Gaviria MD [address] [place], [place] [phone] Med Refill Social History Tobacco Use Types [...] encounter Miscellaneous Notes * Telephone Encounter - Brandi Mcknight - 10/31/2024 10:41 AM EDT TC from pt requesting medication refill. Medications needing refill : oxyCODONE-acetaminophen (Percocet) 5-325 MG tablet To be sent to: [facility] documented in this encounter Plan of Treatment Upcoming Encounters Date Type Department Care Team ([facility] st Contact Info) Description 03/22/2025 9:15 AM EST Office Visit [facility] MEDICINE [address] [place] [address] Nikunj Gaviria MD [address] [place] [address] 04/16/2025 9:30 AM EST Telemedicine [facility] PEDS [address] [place] [address] Abigail Lora, RAFAEL [address] [place] [address] 06/06/2025 9:30 AM EDT Office Visit [facility] OPTOMETRY [address] [place] [address] Jennifer Croft, OD [address] [place] [address] documented as of this encounter Goals Goal [...] documented as of this encounter Care Teams Hand Coper Relationship Specialty Start Date End Date Nikunj Gaviria MD [address] [place] [address] PCP - General Internal Medicine 10/30/13 Dixie Adrian, PharmD [address] [place] [address] Pharmacist Internal Medicine 08/30/23 Roberto Estrada MD [address] [facility] [address] [place] [address] Nephrology 02/18/24 documented as of this encounter
--- OUTSIDE RECORDS SUMMARY | 2025-02-07 12:47 | XMS_ITS | Clinical Summary ---
Author Organization 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 Myocardial perfusion imaging showed mildly reversible chest wall defect consistent with prior AR. He had question of AV block/pause so metoprolol was decreased from 100mg BID to 50mg BID. In the past he saw Dr layne (project management professor) at [facility] and underwent a cardiac cath done on [...] 06/21/2008 Hypertensive disorder 06/21/2008 Surgical follow-up 06/21/2008 Encounters Date Type Department Care Team Description 11/11/2024 Orders Only [facility] [address] [place] [address] Roberto Estrada MD Stage 3b chronic kidney disease (HCC); Type 2 diabetes mellitus with diabetic chronic kidney disease (HCC); Hypertensive disorder from Last 3 Months Immunizations Immunization Administration [...] Sign Reading Time Taken Comments Blood Pressure 118/80 08/21/2024 1:44 PM EDT Pulse 68 11/19/2022 8:25 AM EDT Temperature - - Respiratory Rate - - Oxygen Saturation 97% 11/19/2022 8:25 AM EDT Inhaled Oxygen Concentration - - Weight 98.6 kg (217 lb 6.4 oz) 08/21/2024 1:44 P M EDT Height 175.3 cm (5' 9 ) 02/20/2019 12:00 PM EST Body Mass Index 32.1 02/20/2019 12:00 PM EST Plan of Treatment Upcoming Encounters Date Type Department Care Team (Late st Contact Info) Description 02/19/2025 2:45 PM EST Office Visit [facility] [address] [place] [address] Roberto Estrada MD [address] [facility] [address] [place] [address] Health Maintenance Due Date Last Done Comments Pneumococcal Vaccine: 50+ Years (3 of 3 - PCV20 or PCV21) 09/26/2015 08/01/2015, 08/09/2002 Diabetes: Ophthalmology Exam 04/14/2020 Diabetes: Pedal Pulse Checked 04/14/2020 Diabetes: Sensory Foot Exam 04/14/2020 Diabetes: Visual Foot Exam 04/14/2020 Diabetes: Hemoglobin A1C 02/27/2025 025, 08/29/2024, 05/25/2024, Additional history exists Pneumococcal Vaccine: Peds (0 to 5 Years) and At-Risk Patients (6 to 49 Years) Discontinued 08/01/2015, 08/09/2002 Influenza Vaccine Completed 12/08/2024, , 01/13/2022, Additional history exists Hepatitis B Vaccine Aged Out No longe r eligible based on patient's age to complete this topic Insurance Medicare Medicaid [place] Medicare Medicaid [place] Care Teams Technical Manager Relationship Specialty Start Date End Date Nikunj Jacobs MD [address] [place] [address] PCP - General 03/25/20
--- OUTSIDE RECORDS SUMMARY | 2025-02-07 12:47 | XMS_ITS | Encounter Summary ---
Author Organization [employer] Address [address] [facility] [address] [place] [address] Care Team Providers Care Medical Videographer Name Role Phone Nikunj Gaviria MD Primary Care Provide r Dixie Adrian PharmD Unavailable [phone] Roberto Estrada MD Unavailable [phone] Reason for Visit * Reason Comments Med Refill Encounter Details Date Type Department Care Team ([facility] st Contact Info) Description 01/04/2025 Refill [facility] MEDICINE [address] [place] [address] Nikunj Gaviria MD [address] [place] [address] Primary insomnia Social History Tobacco Use Types [...] Description 03/22/2025 9:15 AM EST Office Visit [facility] MEDICINE [address] [place] [address] Nikunj Gaviria MD [address] [place] [address] 04/16/2025 9:30 AM EST Telemedicine [facility] MED [facility] PEDS [address] [place] [address] Abigail Lora, RN 505 [place] [address] 06/06/2025 9:30 AM EDT Office Visit [facility] OPTOMETRY [address] [place] [address] Jennifer Croft, OD [address] [place] [address] documented as of this encounter Goals Goal [...] documented as of this encounter Care Teams Medical Videographer Relationship Specialty Start Date End Date Nikunj Gaviria MD [address] [place] [address] PCP - General Internal Medicine 10/30/13 Dixie Adrian PharmD [address] [place] [address] Pharmacist Internal Medicine 08/30/23 Roberto Estrada MD [address] [facility] 200 [place] [address] Nephrology 02/18/24 documented as of this encounter
--- OUTSIDE RECORDS SUMMARY | 2025-02-07 12:47 | XMS_ITS | Encounter Summary ---
Author Organization [employer] Address [address] [facility] [address] [place] [address] Care Team Providers Care Apiculturist Name Role Phone Nikunj Gaviria MD Primary Care Provide r Dixie Adrian PharmD Unavailable [phone] Roberto Estrada MD Unavailable [phone] Reason for Visit * Reason Onset Date Comments Referral 05/04/2023 Encounter Details Date Type Department Care Team ([facility] st Contact Info) Description 05/04/2023 Telephone [facility] [address] [place] [address] Nikunj Gaviria MD [address] [place], [place] [phone] Referral Social History Tobacco Use Types Packs/Day [...] requesting new DATE: N/A TIME: N/A Location: [address] [place] [address] [facility] Type of Specialist: opthalmology If any questions please contact spouse at [phone]. documented in this encounter Plan of Treatment Upcoming Encounters Date Type Department Care Team ([facility] st Contact Info) Description 03/22/2025 9:15 AM EST Office Visit [facility] [address] [place] [address] Nikunj Gaviria MD [address] [place] [address] 04/16/2025 9:30 AM EST Telemedicine [facility] [address] [place] [address] Abigail Lora, RAFAEL [address] [place] [address] 06/06/2025 9:30 AM EDT Office Visit [facility] [address] [place] [address] Jennifer Croft, OD [address] [place] [address] documented as of this encounter Visit Diagnoses Diagnosis Primary hypertension Unspecified essential hypertension Type 2 diabetes mellitus with peripheral angiopathy (HCC) Routine eye exam Examination of eyes and vision documented in this encounter Additional Health Concerns Assessment Noted Time PHQ-9 Depression Total Score: 0 06/03/19 23 10:07 AM EDT documented as of this encounter Care Teams Apiculturist Relationship Specialty Start Date End Date Nikunj Gaviria MD [address] [place] [address] PCP - General Internal Medicine 10/30/13 Dixie Adrian PharmD [address] [place] [address] Pharmacist Internal Medicine 08/30/23 Roberto Estrada MD [address] [facility] [address] [place] [address] Nephrology 02/18/24 documented as of this encounter
== END 2025-02-07 09:42 | disposition home or self-care (01) ==
LOC: HO.LAB 09:41
PROVIDERS: PCP Internal Medicine; Visit Provider Nurse Practitioner
DX: Z01.818 Encounter for other preprocedural examination (principal)
CPT/HCPCS: 36415; 80053; 85025; 99212

== ENCOUNTER 2025-02-15 09:00 | Outpatient (REF) | payer MEDICARE, MEDICAID, SELFPAY ==
[2025-02-15 09:16] LABS: MANUAL DIFF FLAG NO
[2025-02-15 09:44] LABS: Hematocrit 41.2 % (42.0-52.0); Hemoglobin 13.7 g/dl (14.0-18.0); Imm Gran Abs Auto 0.04 X10*3/uL (0.00-0.03); Imm Gran Pct Auto 0.5 % (0.0-0.4); Lymphocytes Absolute Auto 1.7 X10*3/uL (1.2-4.9); Mean Corpuscular HGB Conc 33.3 g/dl (31.0-36.0); Mean Corpuscular Hemoglobin 29.8 pg (27.0-33.0); Mean Corpuscular Volume 89.8 fL (80.0-98.0); NRBC Abs Auto 0.000 X10*3/uL (0.0-0.012); NRBC Pct Auto 0.0 /100WBC (0.0-0.2); Platelet Count 230 X10*3/uL (160-400); Red Blood Count 4.59 X10*6/uL (4.60-5.80); White Blood Count 8.1 X10*3/uL (4.8-10.8)
[2025-02-15 10:05] LABS: Appearance Urine Clear; Glucose Urine UA Negative (Negative); PH 6.0 (5.0-9.0); Specific Gravity - Urine 1.010 (1.005-1.025); UMIC TRIGGER UA YES
[2025-02-15 10:25] LABS: Albumin Level 4.3 g/dL (3.5-5.0); Anion Gap 12 (12-20); Blood Urea Nitrogen 18 mg/dL (9-16); Calcium 9.3 mg/dL (8.4-10.2); Carbon Dioxide 24 mmol/L (22-29); Chloride 108 mmol/L (96-108); Magnesium 2.2 mg/dL (1.6-2.6); Potassium 4.3 mmol/L (3.3-5.1); Sodium 140 mmol/L (135-145)
[2025-02-15 10:29] LABS: Parathyroid Hormone Intact 119.3 pg/mL (8.7-77.1)
[2025-02-15 10:59] LABS: Microalbum/Creatinine Ratio Ur 92.1 ug/mg cr (<30); Protein/Creatinine Ratio, Ur 0.21 (<0.2); Total Protein Urine Random 15 mg/dL (<12)
== END 2025-02-15 09:01 | disposition home or self-care (01) ==
LOC: HO.LAB 09:00
PROVIDERS: PCP Internal Medicine; Visit Provider Internal Medicine Nephrology
DX: E11.22 Type 2 diabetes mellitus with diabetic chronic kidney disease (principal); N18.32 Chronic kidney disease, stage 3b; N25.0 Renal osteodystrophy
CPT/HCPCS: 36415; 80069; 81001; 82043; 82306; 82570; 83735; 83970; 84156; 85025

== ENCOUNTER 2025-03-07 08:13 | Outpatient (REF) | payer MEDICARE, MEDICAID, SELFPAY ==
[2025-03-07 09:24] LABS: Blood Urea Nitrogen 14 mg/dL (9-16); Estimated Glomerular Filt Rate 43
== END 2025-03-07 08:14 | disposition home or self-care (01) ==
LOC: HO.LAB 08:13
PROVIDERS: PCP Internal Medicine; Visit Provider Surgery Vascular Surgery
DX: I73.9 Peripheral vascular disease, unspecified (principal)
CPT/HCPCS: 36415; 82565; 84520